=== PATIENT | male | born 1930 | race Caucasian/White ===

== ENCOUNTER 2016-12-18 11:29 | Inpatient (IN) | payer MEDICARE, MEDICAID ==
[~2016-12-18] VITALS: Ht 154.9 cm; Wt 77.1 kg
[2016-12-18] MEDS ORDERED: methylPREDNISolone SOD SUCC 125 MG/2ML VIAL ONE (11:34)
[2016-12-18] MEDS ORDERED: IPRATROPIUM NEB FS 0.5 MG/2.5 ML AMPUL.NEB ONE (11:35)
[2016-12-18] MEDS ORDERED: ALBUTEROL FS 2.5 MG/3 ML VIAL.NEB ONE (11:35)
[2016-12-18] MEDS ORDERED: CARV6.25 PO (11:41)
[2016-12-18] MEDS ORDERED: ACET-868 PO (11:41)
[2016-12-18] MEDS ORDERED: CALC-883 PO (11:41)
[2016-12-18] MEDS ORDERED: WARF3TAB29 PO (11:41)
[2016-12-18] MEDS ORDERED: TAMS-12 PO (11:41)
[2016-12-18] MEDS ORDERED: SIMV10TA2 PO (11:41)
[2016-12-18] MEDS ORDERED: CHOL100030 PO (11:41)
[2016-12-18] MEDS ORDERED: LEVO50TA PO (11:41)
[2016-12-18] MEDS ORDERED: BENA5TAB2 PO (11:41)
[2016-12-18] MEDS ORDERED: FAMO-131 PO (11:41)
[2016-12-18] MEDS ORDERED: ISOS30TA6 PO (11:41)
[2016-12-18] MEDS ORDERED: FINA5TAB3 PO (11:41)
[2016-12-18] MEDS ORDERED: DOCU-270 PO (11:41)
[2016-12-18] MEDS ORDERED: ASPI1CPM PO (11:41)
[2016-12-18] MEDS ORDERED: NIFE60TA2 PO (11:41)
[2016-12-18] MEDS ORDERED: MAGN400O6 PO (11:41)
[2016-12-18 11:57] LABS: BASOPHILS # (AUTO) 0.1 /CMM (0.0-0.2); BASOPHILS % (AUTO) 0.7 % (0.0-2.0); DIFF TOTAL % 100 %; EOSINOPHILS # (AUTO) 0.1 /CMM (0.0-0.7); EOSINOPHILS % (AUTO) 1.5 % (0.0-6.0); HEMATOCRIT 41 % (39-51); HEMOGLOBIN 12.9 g/dL (13.5-17.5); LYMPHOCYTES # (AUTO) 0.6 /CMM (0.8-4.8); LYMPHOCYTES % (AUTO) 7.5 % (20.0-44.0); MEAN CORPUSCULAR HEMOGLOBIN 27 PG (26.0-33.0); MEAN CORPUSCULAR HGB CONC 32 g/dl (31.0-36.0); MEAN CORPUSCULAR VOLUME 86 fL (80-96); MONOCYTES # (AUTO) 0.6 /CMM (0.1-1.30); MONOCYTES % (AUTO) 7.6 % (2.0-12.0); NEUTROPHILS # (AUTO) 6.5 /CMM (1.8-8.9); NEUTROPHILS % (AUTO) 82.7 % (43.0-81.0); PLATELET COUNT (AUTO) 189 /CMM (150-450); RED BLOOD CELL COUNT(AUTO) 4.75 MIL/uL (4.5-6.0); WHITE BLOOD COUNT (AUTO) 7.9 K/uL (4.3-11.0)
[2016-12-18] MEDS ORDERED: methylPREDNISolone SOD SUCC 125 MG/2ML VIAL IV ONE (12:00)
[2016-12-18] MEDS ORDERED: IPRATROPIUM NEB FS 0.5 MG/2.5 ML AMPUL.NEB NEB ONE (12:00)
[2016-12-18] MEDS ORDERED: ALBUTEROL FS 2.5 MG/3 ML VIAL.NEB CONTNEB ONE (12:00)
[2016-12-18 12:03] LABS: CALCIUM, SERUM 8.8 mg/dL (8.5-10.1); CREATININE 1.3 mg/dL (0.6-1.3); POTASSIUM 4.1 mmol/L (3.5-5.1)
[2016-12-18 12:11] LABS: TROPONIN I 0.036 ng/mL (0.00-0.056)
[2016-12-18 12:14] LABS: INR 2.19 (0.87-1.13); PROTHROMBIN TIME 23.8 SECS (9.5-12.7)
[2016-12-18 12:16] LABS: ALBUMIN 3.5 g/dL (3.4-5.0); BILIRUBIN,DIRECT 0.1 mg/dL (0.0-0.2); BILIRUBIN,TOTAL 0.5 mg/dL (0.2-1.0); INDIRECT BILIRUBIN 0.4 mg/dL (0.0-1.1); TOTAL PROTEIN, SERUM 7.4 g/dL (6.4-8.2)
[2016-12-18] MEDS ORDERED: IV NS 0.9% 1,000 ML BAG IV ONE (12:30)
[2016-12-18] MEDS ORDERED: IV NS 0.9% 1,000 ML ONE (12:33)
[2016-12-18 13:00] VITALS: BP 124/61
[2016-12-18] MEDS ORDERED: ONDANSETRON HCL/PF 4 MG/2 ML VIAL IV PRN (13:30)
[2016-12-18] MEDS ORDERED: DEXTROSE 50%-WATER 50 ML DISP.SYRIN IV PRN (13:30)
[2016-12-18] MEDS ORDERED: NIFEdipine XL 60 MG TAB PO SCH (14:00)
[2016-12-18] MEDS ORDERED: MAGNESIUM HYDROXIDE 30 ML UDC PO PRN (14:00)
[2016-12-18] MEDS ORDERED: ACETAMINOPHEN 325 MG TABLET PO PRN (14:00)
[2016-12-18] MEDS: FINASTERIDE (5 MG) 5 MG TABLET PO SCH (14:38)
[2016-12-18] MEDS: FAMOTIDINE (20 MG) 20 MG TABLET PO SCH (14:38)
[2016-12-18] MEDS: ISOSORBIDE MONONITRATE (30MG) 30 MG TAB.SR.24H PO SCH (14:38)
[2016-12-18] MEDS: CALCIUM CARB 600MG /VIT D 1 EACH TABLET PO SCH (14:38)
[2016-12-18] MEDS: CHOLECALCIFEROL 1,000 UNIT TABLET (VIT D3) PO SCH (14:38)
[2016-12-18] MEDS: BENAZEPRIL HCL 5 MG TABLET PO SCH (14:38)
[2016-12-18] MEDS: AGGRENOX(ASA/DIPYRIDAMOLE) 1 CAP CPMP.12HR PO SCH (14:45)
[2016-12-18] MEDS: IPRATROPIUM NEB FS 0.5 MG/2.5 ML AMPUL.NEB NEB SCH ×3 (15:42→23:48)
[2016-12-18] MEDS: ALBUTEROL FS 2.5 MG/0.5 ML VIAL.NEB NEB SCH ×3 (15:42→23:48)
[2016-12-18 16:33] VITALS: BP 127/81
[2016-12-18] MEDS: WARFARIN SODIUM 1 MG TABLET PO SCH (17:18)
[2016-12-18] MEDS: BLOOD SUGAR DIAGNOSTIC 1 EACH STRIP IN SCH ×2 (17:27→21:21)
[2016-12-18] MEDS: INSULIN REGULAR, HUMAN 100 UNIT/ML 3 ML VIAL SQ PRN ×2 (17:33→21:29)
[2016-12-18 20:00] VITALS: BP 142/75
[2016-12-18] MEDS: methylPREDNISolone SOD SUCC 40 MG/ML VIAL IV SCH (20:18)
[2016-12-18] MEDS: CARVEDILOL 6.25 MG TABLET PO SCH (20:19)
[2016-12-18] MEDS: DOCUSATE SODIUM 100 MG CAPSULE PO SCH (20:19)
[2016-12-18] MEDS ORDERED: HEPARIN SODIUM, PORCINE 5000 UNITS/1 ML VIAL SQ SCH (21:00)
[2016-12-18] MEDS: TAMSULOSIN 0.4 MG CAP.SR.24H PO SCH (21:21)
[2016-12-18] MEDS: SIMVASTATIN 10 MG TABLET PO SCH (21:21)
[2016-12-18 22:00] VITALS: BP 142/75
[2016-12-19] VITALS (15 sets, daily range): BP systolic 112–147; BP diastolic 60–89
[2016-12-19] MEDS ORDERED: FUROSEMIDE 40 MG/4 ML VIAL ONE (02:37)
[2016-12-19] MEDS ORDERED: FUROSEMIDE 40 MG/4 ML VIAL IV ONE (03:00)
[2016-12-19] MEDS: ALBUTEROL FS 2.5 MG/0.5 ML VIAL.NEB NEB SCH ×2 (03:42→07:47)
[2016-12-19] MEDS: IPRATROPIUM NEB FS 0.5 MG/2.5 ML AMPUL.NEB NEB SCH ×2 (03:42→07:47)
[2016-12-19] MEDS: methylPREDNISolone SOD SUCC 40 MG/ML VIAL IV SCH ×3 (05:21→21:09)
[2016-12-19] MEDS: BLOOD SUGAR DIAGNOSTIC 1 EACH STRIP IN SCH ×4 (06:41→21:08)
[2016-12-19] MEDS: INSULIN REGULAR, HUMAN 100 UNIT/ML 3 ML VIAL SQ PRN ×4 (06:42→21:17)
[2016-12-19 07:28] LABS: DIFF TOTAL % 100 %; HEMATOCRIT 38 % (39-51); HEMOGLOBIN 12.1 g/dL (13.5-17.5); LYMPHOCYTES # (AUTO) 0.4 /CMM (0.8-4.8); LYMPHOCYTES % (AUTO) 5.1 % (20.0-44.0); MEAN CORPUSCULAR HEMOGLOBIN 28 PG (26.0-33.0); MEAN CORPUSCULAR HGB CONC 32 g/dl (31.0-36.0); MEAN CORPUSCULAR VOLUME 86 fL (80-96); MONOCYTES # (AUTO) 0.4 /CMM (0.1-1.30); MONOCYTES % (AUTO) 4.6 % (2.0-12.0); NEUTROPHILS # (AUTO) 7.1 /CMM (1.8-8.9); NEUTROPHILS % (AUTO) 90.3 % (43.0-81.0); PLATELET COUNT (AUTO) 169 /CMM (150-450); RED BLOOD CELL COUNT(AUTO) 4.37 MIL/uL (4.5-6.0); WHITE BLOOD COUNT (AUTO) 7.9 K/uL (4.3-11.0)
[2016-12-19 07:37] LABS: ALBUMIN 3.3 g/dL (3.4-5.0); BILIRUBIN,TOTAL 0.4 mg/dL (0.2-1.0); CALCIUM, SERUM 8.8 mg/dL (8.5-10.1); CREATININE 1.6 mg/dL (0.6-1.3); PHOSPHORUS 3.1 mg/dL (2.5-4.9); POTASSIUM 4.1 mmol/L (3.5-5.1); TOTAL PROTEIN, SERUM 6.9 g/dL (6.4-8.2)
[2016-12-19] MEDS: PANTOPRAZOLE 40 MG TABLET.DR PO SCH (08:37)
[2016-12-19] MEDS: ISOSORBIDE MONONITRATE (30MG) 30 MG TAB.SR.24H PO SCH (08:37)
[2016-12-19] MEDS: FINASTERIDE (5 MG) 5 MG TABLET PO SCH (08:38)
[2016-12-19] MEDS: DOCUSATE SODIUM 100 MG CAPSULE PO SCH ×2 (08:38→21:09)
[2016-12-19] MEDS: CARVEDILOL 6.25 MG TABLET PO SCH ×2 (08:38→21:10)
[2016-12-19] MEDS: AGGRENOX(ASA/DIPYRIDAMOLE) 1 CAP CPMP.12HR PO SCH (08:38)
[2016-12-19] MEDS: LEVOTHYROXINE SODIUM 50 MCG TABLET PO SCH (08:38)
[2016-12-19] MEDS: FAMOTIDINE (20 MG) 20 MG TABLET PO SCH (08:38)
[2016-12-19] MEDS: CHOLECALCIFEROL 1,000 UNIT TABLET (VIT D3) PO SCH (08:38)
[2016-12-19] MEDS: CALCIUM CARB 600MG /VIT D 1 EACH TABLET PO SCH (08:38)
[2016-12-19] MEDS: BENAZEPRIL HCL 5 MG TABLET PO SCH (08:38)
[2016-12-19] MEDS: NIFEdipine XL (30MG) 30 MG TAB PO SCH (08:39)
[2016-12-19] MEDS ORDERED: LEVOFLOXACIN 250 MG /D5W 50 ML 250 MG in PREMIX 1 EA IV SCH (10:30)
[2016-12-19] MEDS: CEFTRIAXONE 1 G in IV D5W 50 ML IV SCH (11:47)
[2016-12-19] MEDS: AZITHROMYCIN 500 MG in IV D5W 250 ML IV SCH (11:47)
[2016-12-19] MEDS ORDERED: IV SET PRIMARY PUMP SET 1 EA INFUS.SET MC ONE (11:55)
[2016-12-19] MEDS ORDERED: IV NS 0.9% 250 ML IV ONE (11:55)
[2016-12-19] MEDS ORDERED: SECONDARY IV SET 1 EA INFUS.SET MC ONE (11:56)
[2016-12-19] MEDS: LEVALBUTEROL HCL NEB 1.25 MG/0.5 ML VIAL.NEB NEB SCH ×2 (14:45→23:46)
[2016-12-19] MEDS: IPRATROPIUM NEB FS 0.5 MG/2.5 ML AMPUL.NEB NEB PRN (14:45)
[2016-12-19 17:57] LABS: INR 2.75 (0.87-1.13)
[2016-12-19] MEDS: WARFARIN SODIUM 1 MG TABLET PO SCH (18:05)
[2016-12-19] MEDS: SIMVASTATIN 10 MG TABLET PO SCH (21:09)
[2016-12-19] MEDS: TAMSULOSIN 0.4 MG CAP.SR.24H PO SCH (21:09)
[2016-12-20] VITALS (7 sets, daily range): BP systolic 114–141; BP diastolic 7–88
[2016-12-20] MEDS: ALBUTEROL FS 2.5 MG/0.5 ML VIAL.NEB NEB PRN (02:55)
[2016-12-20] MEDS: IPRATROPIUM NEB FS 0.5 MG/2.5 ML AMPUL.NEB NEB PRN ×2 (02:55→23:52)
[2016-12-20] MEDS ORDERED: BUMETANIDE INJ 0.25 MG/ML VIAL ONE (04:32)
[2016-12-20] MEDS: methylPREDNISolone SOD SUCC 40 MG/ML VIAL IV SCH ×2 (04:51→13:58)
[2016-12-20] MEDS ORDERED: BUMETANIDE INJ 0.25 MG/ML VIAL IV ONE (05:00)
[2016-12-20] MEDS: BLOOD SUGAR DIAGNOSTIC 1 EACH STRIP IN SCH ×4 (07:08→21:45)
[2016-12-20] MEDS: INSULIN REGULAR, HUMAN 100 UNIT/ML 3 ML VIAL SQ PRN ×4 (07:09→21:41)
[2016-12-20] MEDS: LEVALBUTEROL HCL NEB 1.25 MG/0.5 ML VIAL.NEB NEB SCH ×3 (07:25→23:52)
[2016-12-20 07:46] LABS: CALCIUM, SERUM 8.8 mg/dL (8.5-10.1); CREATININE 1.7 mg/dL (0.6-1.3); PHOSPHORUS 3.8 mg/dL (2.5-4.9)
[2016-12-20 07:52] LABS: INR 3.07 (0.87-1.13); PROTHROMBIN TIME 33.5 SECS (9.5-12.7)
[2016-12-20 08:14] LABS: HEMATOCRIT 40 % (39-51); HEMOGLOBIN 12.4 g/dL (13.5-17.5); LYMPHOCYTES % (AUTO) 4.4 % (20.0-44.0); MEAN CORPUSCULAR HEMOGLOBIN 27 PG (26.0-33.0); MEAN CORPUSCULAR HGB CONC 32 g/dl (31.0-36.0); MEAN CORPUSCULAR VOLUME 86 fL (80-96); MONOCYTES % (AUTO) 3.1 % (2.0-12.0); NEUTROPHILS % (AUTO) 92.5 % (43.0-81.0); PLATELET COUNT (AUTO) 191 /CMM (150-450); RED BLOOD CELL COUNT(AUTO) 4.61 MIL/uL (4.5-6.0); WHITE BLOOD COUNT (AUTO) 12.3 K/uL (4.3-11.0)
[2016-12-20 08:15] LABS: DIFF TOTAL % 100 %; LYMPHOCYTES # (AUTO) 0.5 /CMM (0.8-4.8); MONOCYTES # (AUTO) 0.4 /CMM (0.1-1.30); NEUTROPHILS # (AUTO) 11.4 /CMM (1.8-8.9)
[2016-12-20] MEDS: FINASTERIDE (5 MG) 5 MG TABLET PO SCH (11:41)
[2016-12-20] MEDS: FAMOTIDINE (20 MG) 20 MG TABLET PO SCH (11:41)
[2016-12-20] MEDS: BENAZEPRIL HCL 5 MG TABLET PO SCH (11:41)
[2016-12-20] MEDS: ISOSORBIDE MONONITRATE (30MG) 30 MG TAB.SR.24H PO SCH (11:41)
[2016-12-20] MEDS: PANTOPRAZOLE 40 MG TABLET.DR PO SCH (11:41)
[2016-12-20] MEDS: AGGRENOX(ASA/DIPYRIDAMOLE) 1 CAP CPMP.12HR PO SCH (11:41)
[2016-12-20] MEDS: DOCUSATE SODIUM 100 MG CAPSULE PO SCH ×2 (11:41→21:00)
[2016-12-20] MEDS: CALCIUM CARB 600MG /VIT D 1 EACH TABLET PO SCH (11:41)
[2016-12-20] MEDS: CHOLECALCIFEROL 1,000 UNIT TABLET (VIT D3) PO SCH (11:41)
[2016-12-20] MEDS: LEVOTHYROXINE SODIUM 50 MCG TABLET PO SCH (11:42)
[2016-12-20] MEDS: CARVEDILOL 6.25 MG TABLET PO SCH ×2 (11:42→21:00)
[2016-12-20] MEDS: AZITHROMYCIN 500 MG in IV D5W 250 ML IV SCH (12:14)
[2016-12-20] MEDS: CEFTRIAXONE 1 G in IV D5W 50 ML IV SCH (13:58)
[2016-12-20] MEDS: NIFEdipine XL (30MG) 30 MG TAB PO SCH (15:20)
[2016-12-20] MEDS: QUETIAPINE FUMARATE 25 MG TABLET PO SCH ×2 (15:30→18:06)
[2016-12-20] MEDS: DILTIAZEM HCL 30 MG TABLET PO SCH (18:05)
[2016-12-20] MEDS: WARFARIN SODIUM 1 MG TABLET PO SCH (18:07)
[2016-12-20] MEDS: TAMSULOSIN 0.4 MG CAP.SR.24H PO SCH (22:00)
[2016-12-20] MEDS: SIMVASTATIN 10 MG TABLET PO SCH (22:00)
[2016-12-21] VITALS: BP 122/65
[2016-12-21 04:00] VITALS: BP 144/84
[2016-12-21] MEDS: ALBUTEROL FS 2.5 MG/0.5 ML VIAL.NEB NEB PRN (05:47)
[2016-12-21] MEDS: IPRATROPIUM NEB FS 0.5 MG/2.5 ML AMPUL.NEB NEB PRN ×3 (05:47→15:21)
[2016-12-21] MEDS: INSULIN REGULAR, HUMAN 100 UNIT/ML 3 ML VIAL SQ PRN ×2 (06:54→12:21)
[2016-12-21] MEDS: BLOOD SUGAR DIAGNOSTIC 1 EACH STRIP IN SCH ×2 (06:57→12:20)
[2016-12-21 07:00] VITALS: BP 133/84
[2016-12-21 07:28] LABS: BASOPHILS % (AUTO) 0.3 % (0.0-2.0); DIFF TOTAL % 100 %; EOSINOPHILS % (AUTO) 0.2 % (0.0-6.0); HEMATOCRIT 39 % (39-51); HEMOGLOBIN 12.4 g/dL (13.5-17.5); LYMPHOCYTES # (AUTO) 0.7 /CMM (0.8-4.8); LYMPHOCYTES % (AUTO) 7.4 % (20.0-44.0); MEAN CORPUSCULAR HEMOGLOBIN 28 PG (26.0-33.0); MEAN CORPUSCULAR HGB CONC 32 g/dl (31.0-36.0); MEAN CORPUSCULAR VOLUME 86 fL (80-96); MONOCYTES # (AUTO) 0.6 /CMM (0.1-1.30); MONOCYTES % (AUTO) 6.8 % (2.0-12.0); NEUTROPHILS % (AUTO) 85.3 % (43.0-81.0); PLATELET COUNT (AUTO) 180 /CMM (150-450); WHITE BLOOD COUNT (AUTO) 9.4 K/uL (4.3-11.0)
[2016-12-21 07:36] LABS: INR 3.95 (0.87-1.13); PROTHROMBIN TIME 43.3 SECS (9.5-12.7)
[2016-12-21 07:52] LABS: CALCIUM, SERUM 8.5 mg/dL (8.5-10.1); CREATININE 1.7 mg/dL (0.6-1.3); PHOSPHORUS 3.1 mg/dL (2.5-4.9)
[2016-12-21] MEDS: PANTOPRAZOLE 40 MG TABLET.DR PO SCH (08:26)
[2016-12-21] MEDS: CALCIUM CARB 600MG /VIT D 1 EACH TABLET PO SCH (08:26)
[2016-12-21] MEDS: DOCUSATE SODIUM 100 MG CAPSULE PO SCH (08:26)
[2016-12-21] MEDS: FINASTERIDE (5 MG) 5 MG TABLET PO SCH (08:26)
[2016-12-21] MEDS: AGGRENOX(ASA/DIPYRIDAMOLE) 1 CAP CPMP.12HR PO SCH (08:27)
[2016-12-21] MEDS: CARVEDILOL 6.25 MG TABLET PO SCH (08:27)
[2016-12-21] MEDS: DILTIAZEM HCL 30 MG TABLET PO SCH ×2 (08:27→13:00)
[2016-12-21] MEDS: CHOLECALCIFEROL 1,000 UNIT TABLET (VIT D3) PO SCH (08:27)
[2016-12-21] MEDS: FAMOTIDINE (20 MG) 20 MG TABLET PO SCH (08:27)
[2016-12-21] MEDS: ISOSORBIDE MONONITRATE (30MG) 30 MG TAB.SR.24H PO SCH (08:27)
[2016-12-21 08:28] VITALS: BP 133/84
[2016-12-21] MEDS: LEVOTHYROXINE SODIUM 50 MCG TABLET PO SCH (08:28)
[2016-12-21] MEDS: NIFEdipine XL (30MG) 30 MG TAB PO SCH (08:28)
[2016-12-21] MEDS ORDERED: methylPREDNISolone SOD SUCC 40 MG/ML VIAL IV SCH (09:00)
[2016-12-21] MEDS: QUETIAPINE FUMARATE 25 MG TABLET PO SCH (09:00)
[2016-12-21] MEDS: LEVALBUTEROL HCL NEB 1.25 MG/0.5 ML VIAL.NEB NEB SCH ×2 (09:02→15:21)
[2016-12-21] MEDS: AZITHROMYCIN 500 MG in IV D5W 250 ML IV SCH (10:12)
[2016-12-21] MEDS ORDERED: IV NS 0.9% 250 ML IV ONE (12:16)
[2016-12-21] MEDS: CEFTRIAXONE 1 G in IV D5W 50 ML IV SCH (12:20)
== END 2016-12-21 16:00 | DRG 189 ==
LOC: ER 11:32 → TELE 12:46
PROVIDERS: ADMIT Internal Medicine Nephrology; ATTEND Internal Medicine Nephrology
DX: J96.00 Acute respiratory failure, unspecified whether with hypoxia or hypercapnia (principal); N17.0 Acute kidney failure with tubular necrosis; J44.0 Chronic obstructive pulmonary disease with (acute) lower respiratory infection; N18.4 Chronic kidney disease, stage 4 (severe); J44.1 Chronic obstructive pulmonary disease with (acute) exacerbation; J20.9 Acute bronchitis, unspecified; E78.5 Hyperlipidemia, unspecified; I48.91 Unspecified atrial fibrillation; K21.9 Gastro-esophageal reflux disease without esophagitis; Z86.73 Personal history of transient ischemic attack (TIA), and cerebral infarction without residual deficits; F03.90 Unspecified dementia, unspecified severity, without behavioral disturbance, psychotic disturbance, mood disturbance, and anxiety; Z95.1 Presence of aortocoronary bypass graft; N40.0 Benign prostatic hyperplasia without lower urinary tract symptoms; E11.22 Type 2 diabetes mellitus with diabetic chronic kidney disease; I12.9 Hypertensive chronic kidney disease with stage 1 through stage 4 chronic kidney disease, or unspecified chronic kidney disease; E83.51 Hypocalcemia; F32.9 Major depressive disorder, single episode, unspecified; F41.1 Generalized anxiety disorder; Z87.891 Personal history of nicotine dependence
CPT/HCPCS: 36415; 70220-TC; 71010-TC; 76770-TC; 80048-TC; 80053-TC; 80076-TC; 82962-TC; 83735-TC; 83880; 84100-TC; 84484-TC; 85025-TC; 85610-TC; 85730-TC; 87081-TC; 87400; 94799-TC; A4216; A4606; J0456; J0696; J1815; J1940; J1956; J2920; J2930; J3490; J7030; J7050; J7060; Z7610

== ENCOUNTER 2017-03-13 12:13 | Inpatient (IN) | payer MEDICARE, MEDICAID ==
[~2017-03-13] VITALS: Ht 157.5 cm; Wt 70.8 kg
[~2017-03-13 12:13] MED LIST: ACET-868 PO; ASPI1CPM PO; BENA5TAB2 PO; CALC-883 PO; CARV6.25 PO; CHOL100030 PO; DOCU-270 PO; FAMO-131 PO; FINA5TAB3 PO; ISOS30TA6 PO; LEVO50TA PO; MAGN400O6 PO; NIFE60TA2 PO; SIMV10TA2 PO; TAMS-12 PO; WARF3TAB29 PO
--- NOTE | 2017-03-13 12:23 | NUR ---
PT BB PRIVATE EMS FROM [facility] FOR BLOODY STOOL THIS AM. PLACED ON MONITOR. VSS. AWAITING MD ORDER.
--- NOTE | 2017-03-13 12:27 | NUR ---
DR IRIZARRY CALLED AND SPOKE WITH DR NEWSOME
[2017-03-13] MEDS ORDERED: PANTOPRAZOLE 40 MG VIAL IV ONE (12:30)
[2017-03-13] MEDS ORDERED: IV NS 0.9% 1,000 ML BAG IV ONE (12:30)
[2017-03-13] MEDS ORDERED: PANTOPRAZOLE 40 MG VIAL ONE (12:34)
[2017-03-13] MEDS ORDERED: IV SET PRIMARY PUMP SET 1 EA INFUS.SET MC ONE ×2 (12:35→14:42)
[2017-03-13] MEDS ORDERED: IV NS 0.9% 1,000 ML ONE (12:35)
[2017-03-13 12:38] LABS: BASOPHILS % (AUTO) 0.4 % (0.0-2.0); EOSINOPHILS # (AUTO) 0.2 /CMM (0.0-0.7); EOSINOPHILS % (AUTO) 2.2 % (0.0-6.0); HEMATOCRIT 30 % (39-51); HEMOGLOBIN 9.2 g/dL (13.5-17.5); LYMPHOCYTES % (AUTO) 14.2 % (20.0-44.0); MEAN CORPUSCULAR HEMOGLOBIN 26 PG (26.0-33.0); MEAN CORPUSCULAR HGB CONC 31 g/dl (31.0-36.0); MEAN CORPUSCULAR VOLUME 84 fL (80-96); MONOCYTES # (AUTO) 0.6 /CMM (0.1-1.30); NEUTROPHILS # (AUTO) 5.2 /CMM (1.8-8.9); NEUTROPHILS % (AUTO) 75.2 % (43.0-81.0); PLATELET COUNT (AUTO) 202 /CMM (150-450); RDW COEFFICIENT OF VARIATION 14.8 (11.5-15.0); RED BLOOD CELL COUNT(AUTO) 3.54 MIL/uL (4.5-6.0)
--- NOTE | 2017-03-13 12:40 | NUR ---
AT BEDSIDE FOR EVAL
[2017-03-13 12:48] LABS: CALCIUM, SERUM 8.5 mg/dL (8.5-10.1); CREATININE 1.3 mg/dL (0.6-1.3); POTASSIUM 3.6 mmol/L (3.5-5.1)
[2017-03-13 12:52] LABS: INR 2.33 (0.87-1.13); PROTHROMBIN TIME 25.4 SECS (9.5-12.7)
[2017-03-13 12:54] LABS: BILIRUBIN,DIRECT 0.2 mg/dL (0.0-0.2); BILIRUBIN,TOTAL 0.6 mg/dL (0.2-1.0); TOTAL PROTEIN, SERUM 6.2 g/dL (6.4-8.2)
--- NOTE | 2017-03-13 13:03 | NUR ---
XRAY AT BEDSIDE FOR EVAL
[2017-03-13] MEDS ORDERED: PROTHROMBIN COMPLEX CONCENTR 500 UNIT VIAL IV ONE (13:30)
--- NOTE | 2017-03-13 13:32 | NUR ---
PT TAKEN TO CT SCAN VIA ARTHUR
[2017-03-13] MEDS ORDERED: PHYTONADIONE INJ 10 MG in IV NS 0.9% 50 ML IV ONE (14:00)
[2017-03-13] MEDS ORDERED: LEVA1.25 NEB (14:06)
[2017-03-13] MEDS ORDERED: CRAN3875 PO (14:06)
[2017-03-13] MEDS ORDERED: ALBU2.5V38 NEB (14:06)
[2017-03-13] MEDS ORDERED: DILT30TA2 PO (14:06)
[2017-03-13] MEDS ORDERED: CRAN425C PO (14:06)
[2017-03-13] MEDS ORDERED: AMIN30LI2 PO (14:06)
[2017-03-13] MEDS ORDERED: WARF2.5T47 PO (14:06)
[2017-03-13] MEDS ORDERED: IPRA0.2S49 NEB (14:06)
--- NOTE | 2017-03-13 14:43 | NUR ---
PANEL ON-CALL PAGED
[2017-03-13] MEDS: WATER FOR INJECTION STERILE IV ONE ×2 (14:59→15:04)
[2017-03-13] MEDS: PROTHROMBIN COMPLEX CONCENTR IV ONE ×2 (14:59→15:04)
[2017-03-13] MEDS ORDERED: PROTHROMBIN COMPLEX CONCENTRATE IV ONE ×2 (15:00)
[2017-03-13] MEDS ORDERED: [UNRECOGNIZED DRUG - OTHER] IV ONE ×2 (15:00)
--- NOTE | 2017-03-13 15:05 | NUR ---
DUPLICATE ORDER OF PROTHROMBIN COMPLEX MEDS. NON ADMIN ONE OF ORDER
[2017-03-13 15:43] LABS: BASOPHILS % (AUTO) 0.4 % (0.0-2.0); EOSINOPHILS # (AUTO) 0.2 /CMM (0.0-0.7); EOSINOPHILS % (AUTO) 3.1 % (0.0-6.0); HEMATOCRIT 28 % (39-51); HEMOGLOBIN 8.7 g/dL (13.5-17.5); LYMPHOCYTES % (AUTO) 16.3 % (20.0-44.0); MEAN CORPUSCULAR HEMOGLOBIN 26 PG (26.0-33.0); MEAN CORPUSCULAR HGB CONC 31 g/dl (31.0-36.0); MEAN CORPUSCULAR VOLUME 83 fL (80-96); MONOCYTES # (AUTO) 0.6 /CMM (0.1-1.30); MONOCYTES % (AUTO) 9.5 % (2.0-12.0); NEUTROPHILS # (AUTO) 4.4 /CMM (1.8-8.9); NEUTROPHILS % (AUTO) 70.7 % (43.0-81.0); PLATELET COUNT (AUTO) 169 /CMM (150-450); RED BLOOD CELL COUNT(AUTO) 3.33 MIL/uL (4.5-6.0); WHITE BLOOD COUNT (AUTO) 6.2 K/uL (4.3-11.0)
--- NOTE | 2017-03-13 16:18 | NUR ---
GAVE REPORT TO MAHAMED EDWARDO LAMBERT . ROOM 103 NPO AND HOLD BLOOD THINNERS PER DR HERRERA. TRANSFER VIA GURNEY VIA ACLS PROTOCOL.
[2017-03-13 16:55] VITALS: BP 139/64
--- NOTE | 2017-03-13 16:55 | NUR ---
RN INITIAL NOTES RECEIVED PT AWAKE, A/OX1-2. SIERRA LEONEAN SPEAKING. ON 02 AT 2LPM VIA NC. NO RESPIRATORY DISTRESS NOTED. NO SOB NOTED. NO SIGNS OF PAIN NOTED. RAC #18 [address] FLUSHED WITH NS. BODY ASSESSMENT DONE. PIC TAKEN AND PLACED INSIDE THE CHART. PT COMFORTABLE. ORIENTED TO ROOM AND USE OF CALL LIGHT. AWAITING FOR ADMISSION ORDERS. CALL LIGHT WITHIN REACH. WILL MONITOR
[2017-03-13 17:00] VITALS: BP 139/64
[2017-03-13 20:00] VITALS: BP 132/75
--- NOTE | 2017-03-13 20:00 | NUR ---
received pt from day shift, alert, follows commands, confused at times, Afib controlled, on 2 L 02, sat well, lungs partially congested, no edema, black bloody stools, seen by GI MD, BRP, diabetic diet, v/s stable, no pain, pt turns and repositions by himself.
[2017-03-13] MEDS ORDERED: MAGNESIUM HYDROXIDE 30 ML UDC PO PRN (20:30)
[2017-03-13] MEDS ORDERED: IPRATROPIUM NEB FS 0.5 MG/2.5 ML AMPUL.NEB NEB PRN (20:30)
[2017-03-13] MEDS ORDERED: AGGRENOX(ASA/DIPYRIDAMOLE) 1 CAP CPMP.12HR PO SCH (20:30)
[2017-03-13] MEDS ORDERED: ACETAMINOPHEN 325 MG TABLET PO PRN (20:30)
[2017-03-13] MEDS ORDERED: ALBUTEROL FS 2.5 MG/3 ML VIAL.NEB NEB PRN (20:30)
[2017-03-13] MEDS ORDERED: HOME MED MISCELLANEOUS XX SCH ×2 (20:30)
[2017-03-13] MEDS ORDERED: HALOPERIDOL LACTATE INJ 5 MG/ML VIAL IM PRN (21:00)
[2017-03-13] MEDS ORDERED: DEXTROSE 50%-WATER 50 ML DISP.SYRIN IV PRN (21:00)
[2017-03-13] MEDS: DOCUSATE SODIUM 100 MG CAPSULE PO SCH (21:00)
--- NOTE | 2017-03-13 21:00 | NUR ---
Dr. Magana called, orders for medications reconciliation received and carried out. patient's non complaints reported to Dr Farias.
[2017-03-13] MEDS: FINASTERIDE (5 MG) 5 MG TABLET PO SCH (21:19)
[2017-03-13] MEDS: PANTOPRAZOLE 40 MG VIAL IV SCH (21:19)
[2017-03-13] MEDS: SIMVASTATIN 10 MG TABLET PO SCH (21:19)
[2017-03-13] MEDS: TAMSULOSIN 0.4 MG CAP.SR.24H PO SCH (21:19)
[2017-03-13] MEDS: ISOSORBIDE MONONITRATE (30MG) 30 MG TAB.SR.24H PO SCH (21:20)
[2017-03-13] MEDS: CARVEDILOL 6.25 MG TABLET PO SCH (21:20)
[2017-03-13] MEDS: DILTIAZEM HCL 30 MG TABLET PO SCH (21:21)
[2017-03-13] MEDS: BLOOD SUGAR DIAGNOSTIC 1 EACH STRIP IN SCH (21:32)
[2017-03-13] MEDS: ALBUTEROL FS 2.5 MG/0.5 ML VIAL.NEB NEB SCH (23:42)
[2017-03-14] VITALS: BP 100/51
--- NOTE | 2017-03-14 00:36 | NUR ---
pt is resting in the bed, alert, very non compliant, removing oxygen and telemetry, v/s stable, no pain, no rectal bleed noted.
--- NOTE | 2017-03-14 04:36 | NUR ---
pt is resting in the bed, alert, following commands, very non compliant, refusing telemonitoring and supplemental oxygen pt refused 04:00 vitals.
--- NOTE | 2017-03-14 06:10 | NUR ---
CYNTHIA Zamora called regarding patient's behavior She is coming to the hospital.
[2017-03-14] MEDS: ALBUTEROL FS 2.5 MG/0.5 ML VIAL.NEB NEB SCH ×3 (07:35→23:53)
[2017-03-14 08:00] VITALS: BP 122/74
[2017-03-14] MEDS: FINASTERIDE (5 MG) 5 MG TABLET PO SCH (08:24)
[2017-03-14] MEDS: PANTOPRAZOLE 40 MG VIAL IV SCH ×2 (08:24→21:19)
[2017-03-14] MEDS: ISOSORBIDE MONONITRATE (30MG) 30 MG TAB.SR.24H PO SCH (08:24)
[2017-03-14] MEDS: CHOLECALCIFEROL 1,000 UNIT TABLET (VIT D3) PO SCH (08:24)
[2017-03-14] MEDS: PROSOURCE / PROSTAT (PYXIS) 30 ML UDC PO SCH (08:24)
[2017-03-14 08:25] LABS: BASOPHILS % (AUTO) 0.7 % (0.0-2.0); EOSINOPHILS # (AUTO) 0.2 /CMM (0.0-0.7); EOSINOPHILS % (AUTO) 4.4 % (0.0-6.0); HEMATOCRIT 26 % (39-51); HEMOGLOBIN 8.4 g/dL (13.5-17.5); LYMPHOCYTES # (AUTO) 0.9 /CMM (0.8-4.8); LYMPHOCYTES % (AUTO) 15.9 % (20.0-44.0); MEAN CORPUSCULAR HEMOGLOBIN 26 PG (26.0-33.0); MEAN CORPUSCULAR HGB CONC 32 g/dl (31.0-36.0); MEAN CORPUSCULAR VOLUME 82 fL (80-96); MONOCYTES # (AUTO) 0.5 /CMM (0.1-1.30); MONOCYTES % (AUTO) 9.3 % (2.0-12.0); NEUTROPHILS # (AUTO) 3.9 /CMM (1.8-8.9); NEUTROPHILS % (AUTO) 69.7 % (43.0-81.0); PLATELET COUNT (AUTO) 177 /CMM (150-450); RDW COEFFICIENT OF VARIATION 16.1 (11.5-15.0); RED BLOOD CELL COUNT(AUTO) 3.22 MIL/uL (4.5-6.0); WHITE BLOOD COUNT (AUTO) 5.5 K/uL (4.3-11.0)
[2017-03-14] MEDS: CARVEDILOL 6.25 MG TABLET PO SCH ×2 (08:25→21:20)
[2017-03-14] MEDS: CALCIUM CARB 600MG /VIT D 1 EACH TABLET PO SCH (08:25)
[2017-03-14] MEDS: DOCUSATE SODIUM 100 MG CAPSULE PO SCH ×2 (08:25→21:19)
[2017-03-14] MEDS: LEVOTHYROXINE SODIUM 50 MCG TABLET PO SCH (08:25)
[2017-03-14] MEDS: DILTIAZEM HCL 30 MG TABLET PO SCH ×3 (08:25→18:07)
[2017-03-14] MEDS: NIFEdipine XL 60 MG TAB PO SCH (08:25)
--- NOTE | 2017-03-14 08:30 | NUR ---
MAHAMED RN NOTE POA at bedside, aware for patient noncompliance. Patient compliant of care at this time with POA at bedside, educational coordinator able to draw blood for blood works today and able to get VS, placed O2 2LPM via NC for 89-90 on room air, patient agreed.
[2017-03-14 08:41] LABS: ALBUMIN 2.9 g/dL (3.4-5.0); BILIRUBIN,TOTAL 0.6 mg/dL (0.2-1.0); CALCIUM, SERUM 7.9 mg/dL (8.5-10.1); CREATININE 1.2 mg/dL (0.6-1.3); INR 1.05 (0.87-1.13); POTASSIUM 3.4 mmol/L (3.5-5.1); PROTHROMBIN TIME 11.3 SECS (9.5-12.7); TOTAL PROTEIN, SERUM 5.8 g/dL (6.4-8.2)
[2017-03-14] MEDS: BLOOD SUGAR DIAGNOSTIC 1 EACH STRIP IN SCH ×4 (09:05→21:31)
[2017-03-14] MEDS: INSULIN REGULAR, HUMAN 100 UNIT/ML 3 ML VIAL SQ PRN ×4 (09:05→21:31)
--- NOTE | 2017-03-14 09:30 | NUR ---
MAHAMED RN NOTE S/E by Dr. Galvan, patient has no c/o abdominal discomfort, no active bleeding at this time an patient tolerated diet well. No Colonoscopy needed at this time, per MD. Patient verbalized understanding. MD aware for patient's non compliance at times.
[2017-03-14] MEDS ORDERED: POTASSIUM CHLORIDE 20 MEQ TAB.PRT.SR PO ONE (12:30)
--- NOTE | 2017-03-14 14:50 | NUR ---
MS RN NOTE Transferred patient to [facility] for CELIA. Report given. Patient resting well at this time, made RN aware with episode of BM x1 about 1100 with blood still. Will continue to monitor.
--- NOTE | 2017-03-14 15:05 | NUR ---
RN INITIAL NOTE PT AWAKE, ALERT AND ORIENTED. ABLE TO MAKE NEEDS KNOWN. NO S/S OF RESPIRATORY DISTRESS OR SOB, SATING WELL ON 2L N/C. SKIN WARM AND DRY. LEFT AC IV FLUSHED, AND PATENT. DRESSING C/D/I. SAFETY MEASURES IMPLEMENTED CALL LIGHT WITHIN REACH. WILL CONTINUE TO MONITOR.
[2017-03-14 16:00] VITALS: BP 110/53
--- NOTE | 2017-03-14 19:20 | NUR ---
RN NOTES RECEIVE DPT AWAKE ON BED WITH DAUGHTER AT BEDSIDE. AFEBRILE. NO ACUTE RESP DISTRESS WITH O2 2LPM VIA NC. SATING 95% NO COMPLAIN OF PAIN. AFEBRILE. PLAN OF CARE STATED TO THE PATIENT AND FAMILY TRANSLATED. PT IS AOX3 CAMEROONIAN SPEAKING. NO ACTIVE BLEEDING NOTED AT THIS TIME. IV SITE LAC G 22 INTACT AND PATENT. PT IS COMPLIANT AT THIS TIME. BUT AT FIRST WHEN THE FAMILY IS NOT THERE PT REFUSED VS . KEPT PT CLEAN AND COMFORTABLE IN BED. BED LOCKED AND SECURED. WILL CONTINUE TO MONITOR.
[2017-03-14 20:00] VITALS: BP 117/52
[2017-03-14 20:16] LABS: THYROID STIMULATING HORMONE 2.33 uIU/mL (0.358-3.74); URIC ACID 6.3 mg/dL (2.6-7.2)
[2017-03-14] MEDS: SIMVASTATIN 10 MG TABLET PO SCH (21:19)
[2017-03-14] MEDS: TAMSULOSIN 0.4 MG CAP.SR.24H PO SCH (21:19)
[2017-03-15 04:00] VITALS: BP 111/41
[2017-03-15 06:48] LABS: BASOPHILS % (AUTO) 0.4 % (0.0-2.0); EOSINOPHILS # (AUTO) 0.4 /CMM (0.0-0.7); EOSINOPHILS % (AUTO) 5.4 % (0.0-6.0); HEMATOCRIT 27 % (39-51); HEMOGLOBIN 8.4 g/dL (13.5-17.5); LYMPHOCYTES % (AUTO) 12.6 % (20.0-44.0); MEAN CORPUSCULAR HEMOGLOBIN 26 PG (26.0-33.0); MEAN CORPUSCULAR HGB CONC 31 g/dl (31.0-36.0); MEAN CORPUSCULAR VOLUME 83 fL (80-96); MONOCYTES # (AUTO) 0.8 /CMM (0.1-1.30); MONOCYTES % (AUTO) 10.1 % (2.0-12.0); NEUTROPHILS # (AUTO) 5.8 /CMM (1.8-8.9); NEUTROPHILS % (AUTO) 71.5 % (43.0-81.0); PLATELET COUNT (AUTO) 172 /CMM (150-450); RDW COEFFICIENT OF VARIATION 15.9 (11.5-15.0); RED BLOOD CELL COUNT(AUTO) 3.21 MIL/uL (4.5-6.0); WHITE BLOOD COUNT (AUTO) 8.1 K/uL (4.3-11.0)
[2017-03-15 07:06] LABS: CALCIUM, SERUM 8.6 mg/dL (8.5-10.1); CREATININE 1.5 mg/dL (0.6-1.3); POTASSIUM 3.8 mmol/L (3.5-5.1)
--- NOTE | 2017-03-15 07:15 | NUR ---
RN INITIAL NOTE PT RECEIVED IN BED, SLEEPING. EASILY AROUSED. RESPIRATIONS ARE EVEN AND UNLABORED. SATING WELL ON 2L N/C. NO S/S OF RESPIRATORY DISTRESS OR SOB. IV SITE FLUSHED AND PATENT. DRESSING C/D/I. SKIN WARM AND DRY TO TOUCH. SAFETY MEASURES IMPLEMENTED. BED IN LOCKED LOW POSITION. CALL LIGHT AND BELONGINGS WITHIN EASY REACH. WILL CONTINUE TO MONITOR.
[2017-03-15] MEDS: BLOOD SUGAR DIAGNOSTIC 1 EACH STRIP IN SCH ×4 (07:34→21:02)
--- NOTE | 2017-03-15 07:35 | NUR ---
RN NOTES PT BS IS 161 MG/DL INSULIN NOT ADMINISTERED DUE TO PATIENT HAS AN EPISODE OF NOT EATING IN AM SHIFT UNLESS THE FAMILY COMES AND GIVE PT FOOD. PT REMAINED IN STABLE CONDITION REMAINED COMPLIANT WITH CARE. NEEDS FREQ. REMINDER REGARDING O2 . O2 2LPM VIA NC TOLERATED WELL SATING 93-95%. KEPT PT CLEAN AND COMFORTABLE IN BED. STILL NOTED WITH BLACK STOOL DURING BOWEL. DENIES PAIN. ENDORSED CONTINUITY OF CARE TO AM NURSE.
[2017-03-15] MEDS: ALBUTEROL FS 2.5 MG/0.5 ML VIAL.NEB NEB SCH ×3 (07:43→23:44)
[2017-03-15 08:00] VITALS: BP 119/69
[2017-03-15] MEDS: LEVOTHYROXINE SODIUM 50 MCG TABLET PO SCH (08:23)
[2017-03-15] MEDS: CALCIUM CARB 600MG /VIT D 1 EACH TABLET PO SCH (08:23)
[2017-03-15] MEDS: FINASTERIDE (5 MG) 5 MG TABLET PO SCH (08:23)
[2017-03-15] MEDS: PROSOURCE / PROSTAT (PYXIS) 30 ML UDC PO SCH (08:23)
[2017-03-15] MEDS: DOCUSATE SODIUM 100 MG CAPSULE PO SCH ×2 (08:24→20:51)
[2017-03-15] MEDS: NIFEdipine XL 60 MG TAB PO SCH (08:24)
[2017-03-15] MEDS: ISOSORBIDE MONONITRATE (30MG) 30 MG TAB.SR.24H PO SCH (08:24)
[2017-03-15] MEDS: CHOLECALCIFEROL 1,000 UNIT TABLET (VIT D3) PO SCH (08:25)
[2017-03-15] MEDS: DILTIAZEM HCL 30 MG TABLET PO SCH ×3 (08:25→17:00)
[2017-03-15] MEDS: PANTOPRAZOLE 40 MG VIAL IV SCH ×2 (08:25→20:51)
[2017-03-15] MEDS: CARVEDILOL 6.25 MG TABLET PO SCH ×2 (08:25→20:52)
[2017-03-15] MEDS: INSULIN REGULAR, HUMAN 100 UNIT/ML 3 ML VIAL SQ PRN (08:37)
[2017-03-15 11:56] LABS: INR 0.95 (0.87-1.13); PROTHROMBIN TIME 10.1 SECS (9.5-12.7)
[2017-03-15 16:00] VITALS: BP 107/48
[2017-03-15] MEDS: WARFARIN SODIUM 2 MG TABLET PO SCH (17:00)
--- NOTE | 2017-03-15 19:08 | NUR ---
RN CLOSING NOTE PT RESTING IN BED COMFORTABLY. ALL MD ORDERS CARRIED OUT. PT KEPT CLEAN AND DRY. WILL GIVE REPORT TO PM NURSE FOR CELIA.
--- NOTE | 2017-03-15 19:30 | NUR ---
RN NOTES RECEIVED PT AWAKE ON BED SLEEPING PER PREVIOUS NURSE PT IS NO COMPLIANT WITH MEDICINE AND TO STAFF. AFEBRILE. NO ACUTE RESP DISTRESS WITH O2 2LPM VIA NC BUT EPISODE OF REMOVING IT NEEDS FURTHER INSTRUCTION SATING 93% NO COMPLAIN OF PAIN. AFEBRILE. PLAN OF CARE STATED TO THE PATIENT AND FAMILY TRANSLATED. PT IS AOX3 SAMOAN SPEAKING. NO ACTIVE BLEEDING NOTED AT THIS TIME. IV SITE LAC G 22 INTACT AND PATENT. DAUGHTER CAME AND VISITED CONCERN REGARDING THE PLAN OF CARE. INFORMED ABOUT THE PATIENT STATUS OF BEING NON COMPLIANT. PER DAUGHTER/RP SHE WANTS TO TALK TO THE DOCTOR IN THE MORNING AND ASKED FOR THE PLAN AND PROBABLY SHE WILL JUST GONNA TAKE HER HOME.KEPT PT CLEAN AND COMFORTABLE IN BED. BED LOCKED AND SECURED. WILL CONTINUE TO MONITOR.
[2017-03-15 20:00] VITALS: BP 125/60
[2017-03-15] MEDS: SIMVASTATIN 10 MG TABLET PO SCH (20:51)
[2017-03-15] MEDS: TAMSULOSIN 0.4 MG CAP.SR.24H PO SCH (21:04)
[2017-03-16 04:00] VITALS: BP 139/61
[2017-03-16] MEDS: BLOOD SUGAR DIAGNOSTIC 1 EACH STRIP IN SCH ×4 (06:42→21:45)
[2017-03-16 06:58] LABS: BASOPHILS % (AUTO) 0.5 % (0.0-2.0); EOSINOPHILS # (AUTO) 0.4 /CMM (0.0-0.7); EOSINOPHILS % (AUTO) 5.1 % (0.0-6.0); HEMATOCRIT 28 % (39-51); HEMOGLOBIN 8.6 g/dL (13.5-17.5); LYMPHOCYTES % (AUTO) 12.8 % (20.0-44.0); MEAN CORPUSCULAR HEMOGLOBIN 26 PG (26.0-33.0); MEAN CORPUSCULAR HGB CONC 31 g/dl (31.0-36.0); MEAN CORPUSCULAR VOLUME 83 fL (80-96); MONOCYTES # (AUTO) 0.8 /CMM (0.1-1.30); MONOCYTES % (AUTO) 10.2 % (2.0-12.0); NEUTROPHILS # (AUTO) 5.5 /CMM (1.8-8.9); NEUTROPHILS % (AUTO) 71.4 % (43.0-81.0); PLATELET COUNT (AUTO) 166 /CMM (150-450); RED BLOOD CELL COUNT(AUTO) 3.32 MIL/uL (4.5-6.0); WHITE BLOOD COUNT (AUTO) 7.8 K/uL (4.3-11.0)
--- NOTE | 2017-03-16 07:10 | NUR ---
RN NOTES PT ASLEEP WELL AT NIGHT WOKE UP AND AMBULATE TO THE BATHROOM STILL WITH BLACK TARRY STOOL. AFEBRILE. NO SIGNIFICANT CHANGES SHOWS. O2 2LPM VIA NC KEPT DUE TO EPISODE OF SOB WHILE WALKING. DENIES PAIN. AFEBRILE. VS STABLE. ENDORSED CONTINUITY OF CARE TO AM NURSE.
[2017-03-16 07:12] LABS: CALCIUM, SERUM 8.6 mg/dL (8.5-10.1); CREATININE 1.2 mg/dL (0.6-1.3); MAGNESIUM 1.9 mg/dL (1.8-2.4); PHOSPHORUS 2.8 mg/dL (2.5-4.9)
--- NOTE | 2017-03-16 07:30 | NUR ---
INITIAL NOTE PATIENT SITTING IN CHAIR, BREATHING EVEN AND UNLABORED WITH NC 2L. RESPONDS TO QUESTIONS. ORIENTED TO PERSON ONLY. NO IV ACCESS, PATIENT REFUSING. PATIENT AMBULATING WITH STEADY GAIT. POSITIONED PATIENT IN BED, BED ALARM ON.
[2017-03-16 08:00] VITALS: BP_SYST 128; BP_DIAS 59; BP_DIAS 65
[2017-03-16] MEDS: ALBUTEROL FS 2.5 MG/0.5 ML VIAL.NEB NEB SCH ×3 (08:11→23:29)
[2017-03-16] MEDS: DOCUSATE SODIUM 100 MG CAPSULE PO SCH ×2 (08:43→21:00)
[2017-03-16] MEDS: FINASTERIDE (5 MG) 5 MG TABLET PO SCH (08:43)
[2017-03-16] MEDS: CALCIUM CARB 600MG /VIT D 1 EACH TABLET PO SCH (08:43)
[2017-03-16] MEDS: CARVEDILOL 6.25 MG TABLET PO SCH ×2 (08:44→21:45)
[2017-03-16] MEDS: ISOSORBIDE MONONITRATE (30MG) 30 MG TAB.SR.24H PO SCH (08:44)
[2017-03-16] MEDS: DILTIAZEM HCL 30 MG TABLET PO SCH ×3 (08:44→17:00)
[2017-03-16] MEDS: LEVOTHYROXINE SODIUM 50 MCG TABLET PO SCH (08:44)
[2017-03-16] MEDS: CHOLECALCIFEROL 1,000 UNIT TABLET (VIT D3) PO SCH (08:44)
[2017-03-16] MEDS: PROSOURCE / PROSTAT (PYXIS) 30 ML UDC PO SCH (08:45)
[2017-03-16] MEDS: PANTOPRAZOLE 40 MG VIAL IV SCH ×2 (08:45→21:00)
[2017-03-16] MEDS: NIFEdipine XL 60 MG TAB PO SCH (08:45)
--- NOTE | 2017-03-16 09:30 | NUR ---
1 SMALL BM WITH BRIGHT BLOOD NOTED IN TOILET APPROXIMATELY 10ML. DAUGHTER AT BEDSIDE.
[2017-03-16 12:16] LABS: CARCINOEMBRYONIC AG (CEA) 3.9 ng/mL (0.0-4.7); VIT D, 25-HYDROXY 32.3 ng/mL (30.0-100.0)
--- NOTE | 2017-03-16 12:50 | NUR ---
INFORMED DR. FOLEY OF BRBPR. PAGED DR. FOURNIER BECAUSE DAUGHTER WANTS TO TALK TO HIM REGARDING PLAN OF CARE. PATIENT REFUSING ACCU-CHECK, REFUSING VITAL SIGNS AND REFUSING PO MEDICATION AT THIS TIME.
--- NOTE | 2017-03-16 16:30 | NUR ---
DR. MC AT NURSES STATION MADE AWARE OF BRBPR AND PATIENT REFUSING CARE. INFORMED THAT PATIENT'S DAUGHTER WANTS TO SPEAK TO HIM
[2017-03-16] MEDS: WARFARIN SODIUM 2 MG TABLET PO SCH (17:00)
--- NOTE | 2017-03-16 19:40 | NUR ---
RN NOTES PT IS AWAKE SITTING ON CHAIR. AFEBRILE. NO ACUTE RESP DISTRESS . O2 2LPM VIA NC TOLERATED WELL WITH EPISODE OF REMOVING CANULA FURTHER INSTRUCTION RISK AND BENEFITS EXPLAINED. SATING 94% NO COMPLAIN OF PAIN. NO ACTIVE BLEEDING NOTED AT THIS TIME.NO IV LINE DUE TO PATIENT REFUSED. KEPT PT CLEAN AND COMFORTABLE IN BED. BED LOCKED AND SECURED. WILL CONTINUE TO MONITOR.
--- NOTE | 2017-03-16 19:40 | NUR ---
CLOSING NOTE HANDED OFF REPORT. PATIENT IN ROOM, NO FALLS OR INCIDENTS THIS SHIFT. BREATHING AND LOC UNCHANGED, STABLE,. PATIENT REFUSING OXYGEN VIA NC. DR. MC SPOKE TO PATIENT'S DAUGHTER WITH PLAN TO RETURN TO SNF, HOLD OFF ON COLONOSCOPY PLAN. PATIENT REFUSED BED BATH THIS SHIFT. REFUSED ALL ACCU-CHECKS AND VITAL SIGNS. DOCTOR AND DAUGHTER AWARE. CALL LIGHT IN REACH.
[2017-03-16 20:00] VITALS: BP 154/79
[2017-03-16] MEDS ORDERED: SOD FERRIC GLUC 125 MG in IV NS 0.9% 100 ML IV SCH (21:00)
[2017-03-16] MEDS: TAMSULOSIN 0.4 MG CAP.SR.24H PO SCH (21:35)
[2017-03-16] MEDS: SIMVASTATIN 10 MG TABLET PO SCH (21:35)
[2017-03-17 04:00] VITALS: BP 133/52
[2017-03-17] MEDS: BLOOD SUGAR DIAGNOSTIC 1 EACH STRIP IN SCH ×4 (06:54→22:00)
--- NOTE | 2017-03-17 07:12 | NUR ---
RN NOTES PT ASLEEP WELL AT NIGHT WOKE UP AND AMBULATE TO THE BATHROOM STILL WITH BLACK TARRY STOOL. LIKES TO SLEEP IN THE CHAIR. COMPLIANT WITH MEDS AND ACCUCHECK. AFEBRILE. NO SIGNIFICANT CHANGES SHOWS. O2 2LPM VIA NC KEPT DUE TO EPISODE OF SOB WHILE WALKING. DENIES PAIN. AFEBRILE. VS STABLE. ENDORSED TO AM NURSE TO FOLLOW UP REGARDING THE INSULIN SINCE THE PATIENT IS NOT EATING MUCH. ENDORSED CONTINUITY OF CARE TO AM NURSE.
[2017-03-17] MEDS: ALBUTEROL FS 2.5 MG/0.5 ML VIAL.NEB NEB SCH ×3 (07:54→23:41)
[2017-03-17 08:00] VITALS: BP 129/87
[2017-03-17] MEDS: PANTOPRAZOLE 40 MG VIAL IV SCH (09:00)
[2017-03-17] MEDS: CALCIUM CARB 600MG /VIT D 1 EACH TABLET PO SCH (09:09)
[2017-03-17] MEDS: LEVOTHYROXINE SODIUM 50 MCG TABLET PO SCH (09:09)
[2017-03-17] MEDS: ISOSORBIDE MONONITRATE (30MG) 30 MG TAB.SR.24H PO SCH (09:09)
[2017-03-17] MEDS: FINASTERIDE (5 MG) 5 MG TABLET PO SCH (09:09)
[2017-03-17] MEDS: NIFEdipine XL 60 MG TAB PO SCH (09:09)
[2017-03-17] MEDS: PROSOURCE / PROSTAT (PYXIS) 30 ML UDC PO SCH (09:09)
[2017-03-17] MEDS: CARVEDILOL 6.25 MG TABLET PO SCH ×2 (09:10→20:34)
[2017-03-17] MEDS: CHOLECALCIFEROL 1,000 UNIT TABLET (VIT D3) PO SCH (09:10)
[2017-03-17] MEDS: DOCUSATE SODIUM 100 MG CAPSULE PO SCH ×2 (09:10→20:33)
[2017-03-17] MEDS: DILTIAZEM HCL 30 MG TABLET PO SCH ×3 (09:10→17:18)
[2017-03-17 12:00] VITALS: BP 129/87
[2017-03-17] MEDS ORDERED: SOD FERRIC GLUC 125 MG in IV NS 0.9% 100 ML IV SCH (14:00)
[2017-03-17 16:00] VITALS: BP 118/55
--- NOTE | 2017-03-17 17:30 | NUR ---
pt is refusing to eat and drink after several attempts.refused meals .daughter present at bedside.dr. garcia made aware of present situation.no new orders received from radha. dr. garcia stated to communicate with case management about discharge to SNF
[2017-03-17 18:44] LABS: PROTHROMBIN TIME 10.7 SECS (9.5-12.7)
[2017-03-17] MEDS: WARFARIN SODIUM 2 MG TABLET PO SCH (18:57)
[2017-03-17] MEDS: TAMSULOSIN 0.4 MG CAP.SR.24H PO SCH (20:34)
[2017-03-17] MEDS: SIMVASTATIN 10 MG TABLET PO SCH (20:35)
--- NOTE | 2017-03-17 20:36 | NUR ---
PT RESTING IN BED,REFUSED TO TAKE HIS MEDS,REFUSED VITALS TAKEN, DENIES ANY PAIN ,PT STATED"I'M NANDO"
[2017-03-18 04:00] VITALS: BP 129/60
[2017-03-18] MEDS: BLOOD SUGAR DIAGNOSTIC 1 EACH STRIP IN SCH ×2 (06:40→12:52)
[2017-03-18 06:49] LABS: BASOPHILS % (AUTO) 0.6 % (0.0-2.0); EOSINOPHILS # (AUTO) 0.2 /CMM (0.0-0.7); EOSINOPHILS % (AUTO) 3.2 % (0.0-6.0); HEMATOCRIT 26 % (39-51); HEMOGLOBIN 7.9 g/dL (13.5-17.5); LYMPHOCYTES % (AUTO) 15.3 % (20.0-44.0); MEAN CORPUSCULAR HEMOGLOBIN 26 PG (26.0-33.0); MEAN CORPUSCULAR HGB CONC 31 g/dl (31.0-36.0); MEAN CORPUSCULAR VOLUME 83 fL (80-96); MONOCYTES # (AUTO) 0.7 /CMM (0.1-1.30); MONOCYTES % (AUTO) 11.4 % (2.0-12.0); NEUTROPHILS # (AUTO) 4.4 /CMM (1.8-8.9); NEUTROPHILS % (AUTO) 69.5 % (43.0-81.0); PLATELET COUNT (AUTO) 197 /CMM (150-450); RDW COEFFICIENT OF VARIATION 16.4 (11.5-15.0); RED BLOOD CELL COUNT(AUTO) 3.09 MIL/uL (4.5-6.0); WHITE BLOOD COUNT (AUTO) 6.3 K/uL (4.3-11.0)
--- NOTE | 2017-03-18 07:15 | NUR ---
RN INITIAL NOTES: Rec'd pt asleep on bed, not in any distress, easily arousable, denies any pain/ discomfort, A/Ox2 w/ periods of confusion, Danish speaking but able to understand Swedish. Pt on room air, no SOB noted. Call light placed w/in reach. Bed kept low & in locked position. Will continue to monitor.
[2017-03-18 07:33] LABS: CALCIUM, SERUM 8.4 mg/dL (8.5-10.1); CREATININE 1.2 mg/dL (0.6-1.3); MAGNESIUM 1.7 mg/dL (1.8-2.4); PHOSPHORUS 2.8 mg/dL (2.5-4.9); POTASSIUM 3.3 mmol/L (3.5-5.1)
[2017-03-18] MEDS: ALBUTEROL FS 2.5 MG/0.5 ML VIAL.NEB NEB SCH (07:52)
[2017-03-18 08:00] VITALS: BP 127/57
--- NOTE | 2017-03-18 08:30 | NUR ---
RN NOTES: Pt able to tolerate PT - able to ambulate on the corridors w/ minimal supervision. As per Shruti (PT), pt will be DC from PT, no skilled rehab needed at this time. But needs assistance when ambulating & transferring from bed to chair d/t episode of confusion.
--- NOTE | 2017-03-18 09:00 | NUR ---
RN NOTES: Explained to pt the need to insert IV line but pt strongly refuses it. Risk & benefits explained. made aware.
--- NOTE | 2017-03-18 09:30 | NUR ---
RN NOTES: Daughter is aware that pt is refusing all the treatment being given.
[2017-03-18] MEDS: PROSOURCE / PROSTAT (PYXIS) 30 ML UDC PO SCH (09:36)
[2017-03-18] MEDS: DILTIAZEM HCL 30 MG TABLET PO SCH ×2 (09:36→12:55)
[2017-03-18] MEDS: DOCUSATE SODIUM 100 MG CAPSULE PO SCH (09:37)
[2017-03-18] MEDS: ISOSORBIDE MONONITRATE (30MG) 30 MG TAB.SR.24H PO SCH (09:37)
[2017-03-18] MEDS: CALCIUM CARB 600MG /VIT D 1 EACH TABLET PO SCH (09:37)
[2017-03-18] MEDS: CHOLECALCIFEROL 1,000 UNIT TABLET (VIT D3) PO SCH (09:37)
[2017-03-18] MEDS: LEVOTHYROXINE SODIUM 50 MCG TABLET PO SCH (09:37)
[2017-03-18] MEDS: FINASTERIDE (5 MG) 5 MG TABLET PO SCH (09:37)
[2017-03-18] MEDS: NIFEdipine XL 60 MG TAB PO SCH (09:37)
[2017-03-18 09:38] VITALS: BP 127/57
[2017-03-18] MEDS: CARVEDILOL 6.25 MG TABLET PO SCH (09:38)
[2017-03-18] MEDS ORDERED: Magnesium 1GM/D5W 100ML PREMIX 100 ML IV SCH (10:00)
[2017-03-18] MEDS: POTASSIUM CL. PREMIX PERIPHER. 50 ML IV SCH ×2 (10:00→11:00)
[2017-03-18 12:50] LABS: BASOPHILS % (AUTO) 0.7 % (0.0-2.0); EOSINOPHILS # (AUTO) 0.1 /CMM (0.0-0.7); EOSINOPHILS % (AUTO) 2.3 % (0.0-6.0); HEMATOCRIT 26 % (39-51); HEMOGLOBIN 8.1 g/dL (13.5-17.5); LYMPHOCYTES # (AUTO) 0.9 /CMM (0.8-4.8); LYMPHOCYTES % (AUTO) 14.5 % (20.0-44.0); MEAN CORPUSCULAR HEMOGLOBIN 25 PG (26.0-33.0); MEAN CORPUSCULAR HGB CONC 31 g/dl (31.0-36.0); MEAN CORPUSCULAR VOLUME 83 fL (80-96); MONOCYTES # (AUTO) 0.6 /CMM (0.1-1.30); MONOCYTES % (AUTO) 9.9 % (2.0-12.0); NEUTROPHILS # (AUTO) 4.4 /CMM (1.8-8.9); NEUTROPHILS % (AUTO) 72.6 % (43.0-81.0); PLATELET COUNT (AUTO) 214 /CMM (150-450); RDW COEFFICIENT OF VARIATION 16.5 (11.5-15.0); RED BLOOD CELL COUNT(AUTO) 3.19 MIL/uL (4.5-6.0); WHITE BLOOD COUNT (AUTO) 6.1 K/uL (4.3-11.0)
[2017-03-18] MEDS: INSULIN REGULAR, HUMAN 100 UNIT/ML 3 ML VIAL SQ PRN (12:55)
--- NOTE | 2017-03-18 13:37 | NUR ---
DISCUSSED WITH DR. CLINTON PT. CBC AND PT. STILL REFUSING TX,DAUGHTER AT BEDSIDE AGREED TO D/C BACK PT. TO SNF,OK BY DR. CLINTON REPORT GIVEN TO OBEY IN [place] NOTIFIED.
--- NOTE | 2017-03-18 14:20 | NUR ---
MANIFEST CLERK NOTES: Discharge instructions and documents given to EMT. Pt DC'd to [facility] in stable condition via gurney accompanied by inclined railway operator and daughter. VS refused to be taken by pt. Belongings given to inclined railway operator.
== END 2017-03-18 14:36 | DRG 377 ==
LOC: ER 12:19 → ICU 15:03 → TELE-TD 15:40 → TELE1 03-14 10:01 → MEDSG1 03-14 10:10
PROVIDERS: ADMIT Internal Medicine; ATTEND Internal Medicine
DX: K57.91 Diverticulosis of intestine, part unspecified, without perforation or abscess with bleeding (principal); G93.40 Encephalopathy, unspecified; D68.9 Coagulation defect, unspecified; Z95.1 Presence of aortocoronary bypass graft; Z86.73 Personal history of transient ischemic attack (TIA), and cerebral infarction without residual deficits; F03.90 Unspecified dementia, unspecified severity, without behavioral disturbance, psychotic disturbance, mood disturbance, and anxiety; E03.9 Hypothyroidism, unspecified; I12.9 Hypertensive chronic kidney disease with stage 1 through stage 4 chronic kidney disease, or unspecified chronic kidney disease; I25.10 Atherosclerotic heart disease of native coronary artery without angina pectoris; I48.91 Unspecified atrial fibrillation; N18.9 Chronic kidney disease, unspecified; N40.0 Benign prostatic hyperplasia without lower urinary tract symptoms; Z79.01 Long term (current) use of anticoagulants; D50.0 Iron deficiency anemia secondary to blood loss (chronic); K21.9 Gastro-esophageal reflux disease without esophagitis
CPT/HCPCS: 36415; 71010-TC; 80048-TC; 80053-TC; 80076-TC; 82272-TC; 82306; 82378; 82728-TC; 82746; 82962-TC; 83540-TC; 83615-TC; 83735-TC; 84100-TC; 84443-TC; 84550-TC; 85025-TC; 85610-TC; 85652-TC; 85730-TC; 86850-TC; 87081-TC; 94799-TC; 97001-TC; A4216; A4606; C9113; C9132; J1815; J2916; J3430; J7030; Z7610

== ENCOUNTER 2017-03-19 14:08 | Inpatient (IN) | payer MEDICARE, MEDICAID ==
[~2017-03-19] VITALS: Ht 162.6 cm; Wt 72.6 kg
[~2017-03-19 14:08] MED LIST changes: +ALBU2.5V38 NEB; +AMIN30LI2 PO; -BENA5TAB2 PO; +CRAN3875 PO; +CRAN425C PO; +DILT30TA2 PO; -FAMO-131 PO; +IPRA0.2S49 NEB; +LEVA1.25 NEB; -WARF3TAB29 PO
--- NOTE | 2017-03-19 14:43 | NUR ---
PT PRESENTS TO ER WITH DAUGHTER AT BEDSIDE C/O CP STARTING APPROX 1350. PT IS UNABLE TO DESCRIBE THE PAIN D/T APHASIA; ABLE TO ANSWER YES AND NO QUESTIONS ONLY. DESCRIBED PAIN 9 OR 10/10, RECEIVED NITRO BELT GLASS SANDER, NOW RELIEVED TO 2/10, PER DAUGHTER. SKIN WARM NONDIAPHORETIC. RESP EVEN UNLABORED. NON-PROVOKED. NAD NOTED. IN ER BED 04 ON MONITOR. EKG ALREADY COMPLETED AND GIVEN TO MD FOR EVAL. IV PRESENT BELT GLASS SANDER.
--- NOTE | 2017-03-19 15:18 | NUR ---
ATTEMPTED TO REACH NURSING SENIOR HARDWARE ENGINEER FOR BED PLACEMENT
[2017-03-19 15:41] LABS: BASOPHILS % (AUTO) 0.7 % (0.0-2.0); EOSINOPHILS # (AUTO) 0.1 /CMM (0.0-0.7); EOSINOPHILS % (AUTO) 2.1 % (0.0-6.0); HEMATOCRIT 27 % (39-51); HEMOGLOBIN 8.8 g/dL (13.5-17.5); LYMPHOCYTES % (AUTO) 14.9 % (20.0-44.0); MEAN CORPUSCULAR HEMOGLOBIN 26 PG (26.0-33.0); MEAN CORPUSCULAR HGB CONC 32 g/dl (31.0-36.0); MEAN CORPUSCULAR VOLUME 82 fL (80-96); MONOCYTES # (AUTO) 0.7 /CMM (0.1-1.30); MONOCYTES % (AUTO) 10.3 % (2.0-12.0); NEUTROPHILS # (AUTO) 4.7 /CMM (1.8-8.9); PLATELET COUNT (AUTO) 214 /CMM (150-450); RED BLOOD CELL COUNT(AUTO) 3.36 MIL/uL (4.5-6.0); WHITE BLOOD COUNT (AUTO) 6.5 K/uL (4.3-11.0)
--- NOTE | 2017-03-19 15:44 | NUR ---
MADE ANOTHER ATTEMPT TO REACH NURSING DEHYDRATOR OPERATOR - WENT TO [employer]IC[employer]
[2017-03-19 15:51] LABS: CALCIUM, SERUM 9.3 mg/dL (8.5-10.1); CREATININE 1.2 mg/dL (0.6-1.3); POTASSIUM 3.2 mmol/L (3.5-5.1)
[2017-03-19 15:54] LABS: INR 1.04 (0.87-1.13); PROTHROMBIN TIME 10.8 SECS (9.5-12.7)
[2017-03-19 15:57] LABS: BILIRUBIN,DIRECT 0.2 mg/dL (0.0-0.2); BILIRUBIN,TOTAL 0.5 mg/dL (0.2-1.0); TOTAL PROTEIN, SERUM 6.2 g/dL (6.4-8.2)
[2017-03-19 15:59] LABS: TROPONIN I 0.025 ng/mL (0.00-0.056)
--- NOTE | 2017-03-19 16:50 | NUR ---
PAGING POT WASHER FOR DR RAMONA CLINTON
--- NOTE | 2017-03-19 16:56 | NUR ---
DR CLINTON CALLED TO SPEAK TO DR RENEE
--- NOTE | 2017-03-19 17:15 | NUR ---
PT TRANSPORTED TO [facility] IN STABLE CONDITION VIA ACLS PROTOCOL
[2017-03-19] MEDS ORDERED: POTASSIUM CHLORIDE 20 MEQ TAB.PRT.SR PO ONE (17:30)
--- NOTE | 2017-03-19 17:45 | NUR ---
GRANITE FABRICATOR NOTES ADMITTED THIS 87Y/O MALE FROM ER VIA [facility] WITH ADM DX OF GI BLEED. AOX2-3. BULGARIAN SPEAKING. WITH PIV LH #20 INTACT AND PATENT. VITAL SIGNS TAKEN AND RECORDED. BODY CHECKED DONE, PHOTOS TAKEN ATTACHED IN THE CHART. SPOKE TO DR. DOWNING FOR ADMISSION ORDERS. MD SAID TO CONTINUE ALL THE HOME MEDICATIONS. ORDERS CARRIED OUT. NO BELONGINGS NOTED. PATIENT DENIES ANY SOB OR DISCOMFORT AT THIS TIME. FAMILY AT BEDSIDE. CALL LIGHT WITHIN REACH, BED IN LOW POSITION, BED ALARM ACTIVATED FOR SAFETY MEASURES. WILL CONTINUE TO MONITOR.
[2017-03-19 17:56] VITALS: BP 143/71
[2017-03-19] MEDS ORDERED: POTASSIUM CHLORIDE 20 MEQ TAB.PRT.SR PO SCH (18:30)
[2017-03-19] MEDS ORDERED: ALBUTEROL FS 2.5 MG/3 ML VIAL.NEB NEB PRN (19:00)
[2017-03-19] MEDS ORDERED: IPRATROPIUM NEB FS 0.5 MG/2.5 ML AMPUL.NEB NEB PRN (19:00)
[2017-03-19] MEDS ORDERED: ACETAMINOPHEN 325 MG TABLET PO PRN (19:00)
--- NOTE | 2017-03-19 19:09 | NUR ---
EQUIPMENT OR MACHINERY CLEANER NOTES ENDORSED TO INCOMING SHIFT FOR CELIA. PATIENT ATTACHED TO TELE MONITORING AFIB 94. WILL CONTINUE TO MONITOR.
--- NOTE | 2017-03-19 19:10 | NUR ---
RN OPEN NOTES RECEIVED PATIENT AWAKE IN BED EATING. A/O X2-3. NO SIGNS OF DISTRESS OR DISCOMFORT. BREATHING EVEN AND UNLABORED. IV ACCESS IN L HAND, PATENT AND INTACT, NO SIGNS OF REDNESS OR INFILTRATION. BED IN LOW LOCKED POSITION WITH SIDE RAILS X2. CALL LIGHT WITHIN REACH. WILL CONTINUE TO MONITOR. Addendum: 03/19/17 at 2003 by KB VARGAS RN ON TELE MONITORING WITH AFIB HR 94 NOTED.
[2017-03-19 20:00] VITALS: BP 117/65
[2017-03-19] MEDS: CARVEDILOL 6.25 MG TABLET PO SCH (21:21)
[2017-03-19] MEDS: SIMVASTATIN 10 MG TABLET PO SCH (21:21)
[2017-03-19] MEDS: TAMSULOSIN 0.4 MG CAP.SR.24H PO SCH (21:21)
[2017-03-19] MEDS: MAGNESIUM HYDROXIDE 30 ML UDC PO SCH (21:21)
[2017-03-19] MEDS: DOCUSATE SODIUM 100 MG CAPSULE PO SCH (21:21)
[2017-03-20] VITALS: BP 136/70
[2017-03-20 04:00] VITALS: BP 138/97
--- NOTE | 2017-03-20 06:53 | NUR ---
RN CLOSING NOTES PATIENT AWAKE IN BED. A/O X2-3. NO SIGNS OF DISTRESS OR DISCOMFORT. BREATHING EVEN AND UNLABORED. ON 2LPM O2 VIA NC. ON TELE WITH AFIB-98 NOTED. IV ACCESS IN L HAND, PATENT AND INTACT, NO SIGNS OF REDNESS OR INFILTRATION. ALL NEEDS MET. NO SIGNIFICANT CHANGES THROUGH THE NIGHT. BED IN LOW LOCKED POSITION WITH SIDE RAILS X2. CALL LIGHT WITHIN REACH. WILL ENDORSE TO AM SHIFT FOR CELIA.
--- NOTE | 2017-03-20 07:30 | NUR ---
AM RN NOTE Received patient sleeping comfortably in his bed, no acute distress noted. On O2 2L/min via NC. Resp even and nonlabored. Skin warm and dry to touch. IV site intact and patent. Bed in low locked position. Will continue to monitor.
[2017-03-20 08:00] VITALS: BP 134/72
[2017-03-20 08:18] LABS: CALCIUM, SERUM 8.8 mg/dL (8.5-10.1); CREATININE 1.2 mg/dL (0.6-1.3); POTASSIUM 3.9 mmol/L (3.5-5.1)
[2017-03-20] MEDS: PROSOURCE / PROSTAT (PYXIS) 30 ML UDC PO SCH (08:22)
[2017-03-20] MEDS: FINASTERIDE (5 MG) 5 MG TABLET PO SCH (08:22)
[2017-03-20] MEDS: NIFEdipine XL 60 MG TAB PO SCH (08:22)
[2017-03-20] MEDS: CALCIUM CARB 600MG /VIT D 1 EACH TABLET PO SCH (08:22)
[2017-03-20] MEDS: DOCUSATE SODIUM 100 MG CAPSULE PO SCH ×3 (08:23→21:00)
[2017-03-20] MEDS: LEVOTHYROXINE SODIUM 50 MCG TABLET PO SCH (08:24)
[2017-03-20] MEDS: ISOSORBIDE MONONITRATE (30MG) 30 MG TAB.SR.24H PO SCH (08:25)
[2017-03-20] MEDS: CHOLECALCIFEROL 1,000 UNIT TABLET (VIT D3) PO SCH (08:25)
[2017-03-20] MEDS: AGGRENOX(ASA/DIPYRIDAMOLE) 1 CAP CPMP.12HR PO SCH (08:25)
[2017-03-20] MEDS: CARVEDILOL 6.25 MG TABLET PO SCH ×2 (08:25→21:00)
[2017-03-20] MEDS: DILTIAZEM HCL 30 MG TABLET PO SCH ×4 (08:25→17:25)
[2017-03-20] MEDS ORDERED: Medication Not On Formulary EA (Cranberry Extract (Cranberry) 425 MG) PO SCH (09:00)
[2017-03-20] MEDS ORDERED: Medication Not On Formulary EA (Cran/Vitc/Mannose/Inulin/Brom (Uti-Stat Liquid) 30 ML) PO SCH (09:00)
[2017-03-20] MEDS: LEVALBUTEROL HCL NEB 1.25 MG/0.5 ML VIAL.NEB IH SCH (12:47)
--- NOTE | 2017-03-20 13:00 | NUR ---
AM RN NOTE Dr. Nair made aware that pt refused Cardizem at noon with NNO.
--- NOTE | 2017-03-20 13:12 | NUR ---
AM RN NOTE Dr. Nair gave new order for GI consult with Dr. Escoto. Called his office and spoke with him. Per Dr. Escoto, pt refused colonoscopy last time and he wants the staff to confirm with daughter and pt if they will allow the procedure at this time and then call him back. Called daughter (Devi) with no response, left msg to call back.
--- NOTE | 2017-03-20 15:38 | NUR ---
AM RN NOTE Consent for colonoscopy signed by daughter (Devi). Dr. Escoto made aware and he spoke with daughter over the phone.
[2017-03-20 16:00] VITALS: BP 143/74
--- NOTE | 2017-03-20 18:11 | NUR ---
AM RN NOTE Patient lying in his bed, denies any pain or discomfort at this time. IV site intact and patent. Bed in low locked position. Will endorse to next shift for CELIA.
--- NOTE | 2017-03-20 19:20 | NUR ---
RN NOTE RECEIVED REPORT. PT AWAKE AND ALERT, APPEARS TIRED. NO S/S OF RESPIRATORY DISTRESS AT THIS TIME. ON NC 2L, NON-LABORED AND EVEN BREATHING. L HAND INTACT AND PATENT. PT FOR COLONOSCOPY TOMORROW MORNING, GOLETLYE STARTING AT 1999. FAMILY AT BEDSIDE, STATING THAT PT HAS NO APPETITE AND MIGHT NOT DRINK THE PROCEDURE PREP. PATIENT TEACHING PROVIDED. WILL MONITOR AND OBSERVE.
[2017-03-20] MEDS ORDERED: PEG 3350/NA SULF,BICARB,CL/KCL 4,000 ML BOTTLE PO ONE (20:00)
[2017-03-20 20:09] VITALS: BP 124/61
--- NOTE | 2017-03-20 21:20 | NUR ---
RN NOTE INFORMED DOCTOR NUHA (GI) THAT PT IS NON-COMPLIANT WITH PROCEDURE PREP FOR COLONOSCOPY TOMORROW. DPOA AWARE OF SITUATION WELL.
--- NOTE | 2017-03-20 21:45 | NUR ---
RN NOTE PT REFUSED ALL MEDICATIONS DESPITE ENCOURAGEMENT AND TEACHING. WILL MONITOR.
[2017-03-20] MEDS: MAGNESIUM HYDROXIDE 30 ML UDC PO SCH (21:50)
[2017-03-20] MEDS: TAMSULOSIN 0.4 MG CAP.SR.24H PO SCH (21:50)
[2017-03-20] MEDS: SIMVASTATIN 10 MG TABLET PO SCH (21:51)
--- NOTE | 2017-03-21 02:00 | NUR ---
RN NOTE PT RESTING IN BED WITH EYES CLOSED. NO DISTRESS NOTED AT THIS TIME. WILL MONITOR.
--- NOTE | 2017-03-21 06:49 | NUR ---
RN NOTE NO SIGNIFICANT CHANGES OVERNIGHT. AAOX2, CONFUSED. PT KEPT COMFORTABLE AND CLEAN. DID NOT DRINK ANY PROCEDURE PREP FOR SCHEDULED COLONSCOPY. MD SANTACRUZ AWARE. NO DISTRESS NOTED AT THIS TIME. WILL F/U WITH DAY SHIFT FOR CELIA.
--- NOTE | 2017-03-21 07:20 | NUR ---
RN MS OPENING NOTES Received patient in bed, asleep, head of bed elevated, no SOB or distress noted. On O2 at 2lpm NC and tolerated well. A/O X 2. IV is intact and patent without infiltration. Kept patient clean and comfortable in bed, call light within patient reach, will continue to monitor accordingly.
[2017-03-21] MEDS: LEVALBUTEROL HCL NEB 1.25 MG/0.5 ML VIAL.NEB IH SCH ×3 (07:35→23:22)
[2017-03-21 08:00] VITALS: BP 153/72
[2017-03-21] MEDS: NIFEdipine XL 60 MG TAB PO SCH (08:51)
[2017-03-21] MEDS: CALCIUM CARB 600MG /VIT D 1 EACH TABLET PO SCH (08:51)
[2017-03-21] MEDS: LEVOTHYROXINE SODIUM 50 MCG TABLET PO SCH (08:51)
[2017-03-21] MEDS: DOCUSATE SODIUM 100 MG CAPSULE PO SCH ×2 (08:51→21:03)
[2017-03-21] MEDS: FINASTERIDE (5 MG) 5 MG TABLET PO SCH (08:51)
[2017-03-21] MEDS: DILTIAZEM HCL 30 MG TABLET PO SCH ×3 (08:52→17:25)
[2017-03-21] MEDS: ISOSORBIDE MONONITRATE (30MG) 30 MG TAB.SR.24H PO SCH (08:52)
[2017-03-21] MEDS: AGGRENOX(ASA/DIPYRIDAMOLE) 1 CAP CPMP.12HR PO SCH (08:52)
[2017-03-21] MEDS: PROSOURCE / PROSTAT (PYXIS) 30 ML UDC PO SCH (08:53)
[2017-03-21] MEDS: CHOLECALCIFEROL 1,000 UNIT TABLET (VIT D3) PO SCH (08:53)
[2017-03-21] MEDS: CARVEDILOL 6.25 MG TABLET PO SCH ×2 (08:53→21:00)
[2017-03-21 10:00] VITALS: BP 153/72
--- NOTE | 2017-03-21 12:07 | NUR ---
RT NOTE ROUTINE TX WILL CONTINUE @1530 FOR Q8 ORDERED.
--- NOTE | 2017-03-21 13:00 | NUR ---
RN MS NOTES Patient did not drink the golyte and colonoscopy was not performed.
[2017-03-21 16:00] VITALS: BP 94/50
--- NOTE | 2017-03-21 16:54 | NUR ---
RN MS NOTES Power of lean manufacturing engineer came to see the patient and she wants to have someone to help the patient to encourage him to eat.
--- NOTE | 2017-03-21 19:15 | NUR ---
RN MS CLOSING NOTES All needs provided, attended, and anticipated. Kept patient clean and comfortable in bed, call light within patient reach, will continue to monitor accordingly. Endorsed to next shift RN to continue care
--- NOTE | 2017-03-21 19:25 | NUR ---
RN OPEN NOTES RECEIVED PATIENT AWAKE IN BED. A/O X2. NO SIGNS OF DISTRESS OR DISCOMFORT. BREATHING EVEN AND UNLABORED. ON 2LPM O2 VIA NC. IV ACCESS IN L HAND PATENT AND INTACT. NO SIGNS OF REDNESS OR INFILTRATION. BED IN LOW LOCKED POSITION WITH SIDE RAIL X2. CALL LIGHT WITHIN REACH. WILL CONTINUE TO MONITOR.
[2017-03-21 20:00] VITALS: BP 104/56
[2017-03-21] MEDS: TAMSULOSIN 0.4 MG CAP.SR.24H PO SCH (21:03)
[2017-03-21] MEDS: SIMVASTATIN 10 MG TABLET PO SCH (21:03)
[2017-03-21] MEDS: MAGNESIUM HYDROXIDE 30 ML UDC PO SCH (21:07)
[2017-03-21] MEDS ORDERED: IV NS 0.9% 0 ML IV ONE (22:20)
[2017-03-21] MEDS ORDERED: IV SET PRIMARY PUMP SET 1 EA INFUS.SET MC ONE (22:20)
--- NOTE | 2017-03-22 06:05 | NUR ---
RN NOTES PATIENT REFUSED AM LAB DRAW X3. PATIENT EDUCATION REINFORCED. WILL CONTINUE TO MONITOR.
--- NOTE | 2017-03-22 06:41 | NUR ---
RN OPEN NOTES PATIENT RESTING IN BED. A/O X2. NO SIGNS OF DISTRESS OR DISCOMFORT. BREATHING EVEN AND UNLABORED. IV ACCESS IN L HAND PATENT AND INTACT. NO SIGNS OF REDNESS OR INFILTRATION. ALL NEEDS MET. NO SIGNIFICANT CHANGES THROUGH THE NIGHT. BED IN LOW LOCKED POSITION WITH SIDE RAIL X2. CALL LIGHT WITHIN REACH. WILL ENDORSE TO AM SHIFT FOR CELIA.
--- NOTE | 2017-03-22 07:30 | NUR ---
RECEIVED PT. THIS AM A/O X2,NO COMPLAINTS.VS STABLE.
[2017-03-22 08:00] VITALS: BP 123/83
[2017-03-22] MEDS: LEVALBUTEROL HCL NEB 1.25 MG/0.5 ML VIAL.NEB IH SCH ×2 (08:07→14:45)
[2017-03-22] MEDS: AGGRENOX(ASA/DIPYRIDAMOLE) 1 CAP CPMP.12HR PO SCH ×2 (09:00→09:10)
[2017-03-22] MEDS: ISOSORBIDE MONONITRATE (30MG) 30 MG TAB.SR.24H PO SCH (09:00)
[2017-03-22] MEDS: NIFEdipine XL 60 MG TAB PO SCH (09:00)
[2017-03-22] MEDS: DILTIAZEM HCL 30 MG TABLET PO SCH ×3 (09:00→13:00)
[2017-03-22] MEDS: CALCIUM CARB 600MG /VIT D 1 EACH TABLET PO SCH ×3 (09:00→10:27)
[2017-03-22] MEDS: DOCUSATE SODIUM 100 MG CAPSULE PO SCH ×2 (09:00→09:10)
[2017-03-22] MEDS: CHOLECALCIFEROL 1,000 UNIT TABLET (VIT D3) PO SCH ×2 (09:00→09:12)
[2017-03-22] MEDS: CARVEDILOL 6.25 MG TABLET PO SCH ×2 (09:00→09:12)
[2017-03-22] MEDS: PROSOURCE / PROSTAT (PYXIS) 30 ML UDC PO SCH (09:10)
[2017-03-22] MEDS: FINASTERIDE (5 MG) 5 MG TABLET PO SCH (09:11)
[2017-03-22] MEDS: LEVOTHYROXINE SODIUM 50 MCG TABLET PO SCH (09:47)
[2017-03-22 10:04] LABS: BASOPHILS % (AUTO) 0.7 % (0.0-2.0); EOSINOPHILS # (AUTO) 0.2 /CMM (0.0-0.7); EOSINOPHILS % (AUTO) 2.9 % (0.0-6.0); HEMATOCRIT 29 % (39-51); HEMOGLOBIN 8.8 g/dL (13.5-17.5); LYMPHOCYTES % (AUTO) 15.4 % (20.0-44.0); MEAN CORPUSCULAR HEMOGLOBIN 25 PG (26.0-33.0); MEAN CORPUSCULAR HGB CONC 31 g/dl (31.0-36.0); MEAN CORPUSCULAR VOLUME 81 fL (80-96); MONOCYTES # (AUTO) 0.6 /CMM (0.1-1.30); MONOCYTES % (AUTO) 9.8 % (2.0-12.0); NEUTROPHILS # (AUTO) 4.6 /CMM (1.8-8.9); NEUTROPHILS % (AUTO) 71.2 % (43.0-81.0); PLATELET COUNT (AUTO) 232 /CMM (150-450); RDW COEFFICIENT OF VARIATION 16.2 (11.5-15.0); RED BLOOD CELL COUNT(AUTO) 3.52 MIL/uL (4.5-6.0); WHITE BLOOD COUNT (AUTO) 6.5 K/uL (4.3-11.0)
[2017-03-22 10:18] LABS: CALCIUM, SERUM 8.9 mg/dL (8.5-10.1); CREATININE 1.3 mg/dL (0.6-1.3); MAGNESIUM 1.8 mg/dL (1.8-2.4); PHOSPHORUS 3.3 mg/dL (2.5-4.9); POTASSIUM 3.7 mmol/L (3.5-5.1)
--- NOTE | 2017-03-22 10:30 | NUR ---
DTR. RAE CALLING IN AND RN REPORTED PT. REFUSING MOST OF MEDS.
[2017-03-22 13:00] VITALS: BP 124/80
--- NOTE | 2017-03-22 15:44 | NUR ---
REFUSED DC PHOTOS,ALL PAPERWORK SIGNED INCLUDING BELONGING SHEET.DTR. HERE JUST PRIOR TO DC AND AWARE PT. LEAVING.HEP LOCK OUT.TAKEN TO FACILITY.REPORT CALLED TO [facility].TRANSPORTED VIA AMBULANCE.
[2017-03-23] MEDS ORDERED: LEVA0.6320 IH (19:00)
[2017-03-23] MEDS ORDERED: BLOO-668 IN (19:00)
[2017-03-23] MEDS ORDERED: IPRA0.2S9 IH (19:00)
[2017-03-23] MEDS ORDERED: INSU100V11 SQ (19:00)
[2017-03-23] MEDS ORDERED: CHOL100044 PO (19:00)
== END 2017-03-22 15:45 | DRG 392 ==
LOC: ER 14:09 → TELE 16:16 → MED 03-20 16:39
PROVIDERS: ADMIT Internal Medicine; ATTEND Internal Medicine Nephrology
DX: K57.90 Diverticulosis of intestine, part unspecified, without perforation or abscess without bleeding (principal); J90 Pleural effusion, not elsewhere classified; D64.9 Anemia, unspecified; I12.9 Hypertensive chronic kidney disease with stage 1 through stage 4 chronic kidney disease, or unspecified chronic kidney disease; E11.22 Type 2 diabetes mellitus with diabetic chronic kidney disease; N18.9 Chronic kidney disease, unspecified; K21.9 Gastro-esophageal reflux disease without esophagitis; Z95.1 Presence of aortocoronary bypass graft; N40.0 Benign prostatic hyperplasia without lower urinary tract symptoms; E03.9 Hypothyroidism, unspecified; I48.91 Unspecified atrial fibrillation; F03.90 Unspecified dementia, unspecified severity, without behavioral disturbance, psychotic disturbance, mood disturbance, and anxiety; Z86.73 Personal history of transient ischemic attack (TIA), and cerebral infarction without residual deficits; Z79.01 Long term (current) use of anticoagulants
CPT/HCPCS: 36415; 71010-TC; 80048-TC; 80076-TC; 83735-TC; 84100-TC; 84484-TC; 85025-TC; 85730-TC; 86850-TC; 87081-TC; 94799-TC; 97001-TC; 97116-TC; 97530-TC; A4606; A6403; J7050; Z7610

== ENCOUNTER 2017-04-18 17:15 | Inpatient (IN) | payer MEDICARE, MEDICAID ==
[~2017-04-18] VITALS: Ht 157.5 cm; Wt 63.5 kg
[~2017-04-18 17:15] MED LIST changes: +BLOO-668 IN; -CHOL100030 PO; +CHOL100044 PO; +INSU100V11 SQ; -IPRA0.2S49 NEB; +IPRA0.2S9 IH; +LEVA0.6320 IH; -LEVA1.25 NEB
--- NOTE | 2017-04-18 17:19 | NUR ---
CALLED RT FOR BREATHING TREATMENT
--- NOTE | 2017-04-18 17:25 | NUR ---
LAC #18 IV ACCESS BLOOD SAMPLE COLLECTED SENT TO LAB. PT HAS RHAND #20 PRODUCTION EDITOR
[2017-04-18] MEDS ORDERED: methylPREDNISolone SOD SUCC 125 MG/2ML VIAL IV ONE ×2 (17:30→21:30)
[2017-04-18] MEDS ORDERED: IPRATROPIUM NEB FS 0.5 MG/2.5 ML AMPUL.NEB NEB ONE (17:30)
[2017-04-18] MEDS ORDERED: ALBUTEROL FS 2.5 MG/3 ML VIAL.NEB CONTNEB ONE (17:30)
[2017-04-18] MEDS ORDERED: ALBUTEROL FS 2.5 MG/3 ML VIAL.NEB ONE ×2 (17:31→19:21)
[2017-04-18] MEDS ORDERED: IPRATROPIUM NEB FS 0.5 MG/2.5 ML AMPUL.NEB ONE (17:32)
[2017-04-18] MEDS ORDERED: methylPREDNISolone SOD SUCC 125 MG/2ML VIAL ONE (17:34)
--- NOTE | 2017-04-18 17:36 | NUR ---
PUBLIC AFFAIRS DIRECTOR AT BEDSIDE
[2017-04-18 17:42] LABS: BASOPHILS % (AUTO) 0.3 % (0.0-2.0); EOSINOPHILS # (AUTO) 0.1 /CMM (0.0-0.7); EOSINOPHILS % (AUTO) 1.8 % (0.0-6.0); HEMATOCRIT 28 % (39-51); HEMOGLOBIN 8.7 g/dL (13.5-17.5); LYMPHOCYTES # (AUTO) 0.6 /CMM (0.8-4.8); LYMPHOCYTES % (AUTO) 8.3 % (20.0-44.0); MEAN CORPUSCULAR HEMOGLOBIN 25 PG (26.0-33.0); MEAN CORPUSCULAR HGB CONC 32 g/dl (31.0-36.0); MEAN CORPUSCULAR VOLUME 79 fL (80-96); MONOCYTES # (AUTO) 0.6 /CMM (0.1-1.30); MONOCYTES % (AUTO) 8.5 % (2.0-12.0); NEUTROPHILS # (AUTO) 6.1 /CMM (1.8-8.9); NEUTROPHILS % (AUTO) 81.1 % (43.0-81.0); PLATELET COUNT (AUTO) 213 /CMM (150-450); RDW COEFFICIENT OF VARIATION 18.3 (11.5-15.0); RED BLOOD CELL COUNT(AUTO) 3.49 MIL/uL (4.5-6.0); WHITE BLOOD COUNT (AUTO) 7.4 K/uL (4.3-11.0)
--- NOTE | 2017-04-18 17:46 | NUR ---
CALLED NURSING SUP. FOR MAHAMED BED
[2017-04-18 17:48] LABS: CALCIUM, SERUM 9.1 mg/dL (8.5-10.1); CARBON DIOXIDE 30 mmol/L (21-32); CHLORIDE 106 mmol/L (98-107); CREATININE 1.8 mg/dL (0.6-1.3); GLUCOSE 177 mg/dL (74-106); POTASSIUM 3.8 mmol/L (3.5-5.1); SODIUM SERUM 141 mmol/L (136-145); UREA NITROGEN, BLOOD 37 mg/dL (7-18)
[2017-04-18 17:57] LABS: TROPONIN I < 0.017 ng/mL (0.00-0.056)
[2017-04-18 18:02] LABS: ALANINE AMINOTRANSFERASE 18 U/L (12-78); ALBUMIN 3.4 g/dL (3.4-5.0); ALKALINE PHOSPHATASE 45 U/L (46-116); ASPARTATE AMINOTRANSFERASE 7 U/L (15-37); B-TYPE NATRIURETIC PEPTIDE 3520 PG/ML (0-125); BILIRUBIN,DIRECT 0.2 mg/dL (0.0-0.2); BILIRUBIN,TOTAL 0.5 mg/dL (0.2-1.0); TOTAL PROTEIN, SERUM 6.8 g/dL (6.4-8.2)
[2017-04-18] MEDS ORDERED: FUROSEMIDE 20 MG/2 ML VIAL ONE (18:12)
--- NOTE | 2017-04-18 18:17 | NUR ---
'S GROUP CALLED, CLIENT RELATIONS SPECIALIST, PAGED TO CALL BACK
[2017-04-18 18:18] LABS: ABG BASE EXCESS -0.3 mmol/L; ABG OXYGEN SATURATION 93.5 % (92.0-98.5); ABG PCO2 39.3 mmHg (35.0-45.0); ABG PH 7.408 (7.350-7.450); ABG PO2 72.3 mmHg (75.0-100.0); AaDO2 232.8 mmHg; COHb 1.1 % (0.5-1.5); MetHb 0.5 % (0.0-1.5); SITE, ABG Right Radial; VENT MODE, BG MASK
[2017-04-18] MEDS ORDERED: FUROSEMIDE 20 MG/2 ML VIAL IV ONE (18:30)
--- NOTE | 2017-04-18 18:50 | NUR ---
ON PHONE WITH
--- NOTE | 2017-04-18 19:02 | NUR ---
RECEIVED REPORT FROM EDWARDO HALL FOR CONTINUE OF CARE.
--- NOTE | 2017-04-18 19:06 | NUR ---
REPORT GIVEN TO HALLE FOR CELIA
--- NOTE | 2017-04-18 19:07 | NUR ---
Brock salas in ED - 04/18/[address] ASHLEY AT BEDSIDE SPEAKING TO DAUGHTER REGAURDING PLAN OF CARE.
--- NOTE | 2017-04-18 19:08 | NUR ---
DR. ASHLEY AT BEDSIDE SPEAKING TO DAUGHTER REGARDING PLAN OF CARE.
[2017-04-18] MEDS ORDERED: FERR-58 PO (19:19)
[2017-04-18] MEDS ORDERED: WARF3TAB29 PO (19:19)
--- NOTE | 2017-04-18 19:28 | NUR ---
RT AT BEDSIDE FOR BREATHING TX.
[2017-04-18] MEDS ORDERED: ALBUTEROL FS 2.5 MG/3 ML VIAL.NEB NEB ONE (19:30)
--- NOTE | 2017-04-18 19:32 | NUR ---
PT ASSIGNED MAHAMED 118-2
--- NOTE | 2017-04-18 19:43 | NUR ---
RN NOTES RECEIVED REPORT FROM ER NURSE LELA.
--- NOTE | 2017-04-18 19:51 | NUR ---
REPROT GIVEN TO EDWARDO LOZADA FOR CONTINUE OF CARE FOR MAHAMED BED 118-2
--- NOTE | 2017-04-18 20:30 | NUR ---
MAHAMED RN INITIAL NOTES RECEIVED PATIENT VIA GURNEY, AWAKE, KITTITIAN SPEAKING, VAHID RAE AT BEDSIDE, PER NIECE PATIENT UNDERSTANDS DANISH AND PATIENT IS A/OX3. 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 RESPIRATIONS LABORED, ON 57NOCA0 VIA SIMPLE MASK, SPO2 94%SKIN WARM AND DRY TO TOUCH. KYRA HAS POA. RECEIVED MEDICAL INFORMATION FROM PREVIOUS RECORDS AND FROM KYRA. PER KYRA. PATIENT AGRESSIVE, COMBATIVE WHEN APPROACHED. SAMANTHAECE ASSISTED WITH SPEAKING WITH PATIENT, ABLE TO PERFORM ADLS AND ASSESS SKIN. PER NIECE PATIENT DOES NOT LIKE BEING IN HOSPITALS AND HAS EPISODES OF GETTING UP FREQUENTLY AND COMBATIVENESS. PATIENT ABLE TO FOLLOW COMMANDS. ON TELE MONITOR AFIB UNCONTROLLED 113. DENIES PAIN AT THIS TIME. ORIENTED PATIENT TO CALL LIGHT SYSTEM. SIDE RAILS UP AND LOCKED. BED KEPT AT LOWEST POSITION. BED ALARM ON. CALL LIGHT KEPT WITHIN EASY REACH. PENDING ADMITTING ORDERS. WILL CONTINUE TO MONITOR.
--- NOTE | 2017-04-18 20:31 | NUR ---
PT TRASNFERED PER ACLS PROTOCOL
[2017-04-18] MEDS ORDERED: FUROSEMIDE 20 MG/2 ML VIAL IV SCH (21:30)
[2017-04-18] MEDS ORDERED: ACETAMINOPHEN 325 MG TABLET PO PRN (22:00)
[2017-04-18] MEDS ORDERED: DEXTROSE 50%-WATER 50 ML DISP.SYRIN IV PRN (22:00)
[2017-04-18] MEDS: BLOOD SUGAR DIAGNOSTIC 1 EACH STRIP IN SCH (22:17)
[2017-04-18] MEDS: INSULIN REGULAR, HUMAN 100 UNIT/ML 3 ML VIAL SQ PRN (22:26)
--- NOTE | 2017-04-18 23:20 | NUR ---
MAHAMED RN NOTES PATIENT NOTED TAKING OF OXYGEN MASK MANY TIMES. EXPLAINED TO PATIENT THE NEED FOR OXYGEN. PATIENT BECAME AGGRESSIVE AND THREW OXYGEN MASK TOWARDS ME. ASKED ANOTHER RN FOR ASSISTANCE, PATIENT BECAME MORE AGGRESSIVE AND THREW OTHER ITEMS TOWARDS NURSES. CALLED SECURITY FOR ASSISTANCE AND PATIENT FINALLY CALMED DOWN BUT STILL REFUSED TO BE PLACED ON OXYGEN, CHECKED VS 137/69, PULSE 123, SPO2 93% ON ROOM AIR WHILE SITTING AT EDGE OF BED. INFORMED NIECE REGARDING CURRENT SITUATION, APOLOGETIC FOR HER UNCLE. CHARGE NURSE PAGED . ASSISTED PATIENT BACK INTO BED, PATIENT AGREED TO NC. SKIN WARM AND DRY TO TOUCH. WILL CONTINUE TO MONITOR.
[2017-04-19] VITALS (8 sets, daily range): BP systolic 104–148; BP diastolic 47–74
[2017-04-19] MEDS ORDERED: methylPREDNISolone SOD SUCC 125 MG/2ML VIAL ONE ×2 (00:04→06:22)
[2017-04-19] MEDS: methylPREDNISolone SOD SUCC 125 MG/2ML VIAL IV SCH ×5 (00:19→23:58)
--- NOTE | 2017-04-19 01:27 | NUR ---
MAHAMED RN NOTES PATIENT REMOVED OXYGEN, PATIENT REFUSING TO PLACE OXYGEN BACK ON, REMOVED TELE BOX, REFUSING TO PUT TELE BOX BACK ON, EXPLAINED TO PATIENT THE NEED FOR OXYGEN AND TELE MONITOR, PATIENT BECAME AGGRESSIVE AND CHARGE NURSE ATTEMPTED TO SPEAK WITH PATIENT, PATIENT COMBATIVE, HITTING STAFF. PAGED DR. CLINTON. WAITING FOR CALL BACK.
--- NOTE | 2017-04-19 02:07 | NUR ---
SECURITY CALLED TO ASSIST WITH PATIENT, PATIENT WITH RESPIRATIONS LABORED, ON ROOM AIR, OFF THE TELE MONITOR. PLACED ON BILATERAL SOFT RESTRAINTS WITH 3 SECURITY GUARDS AND TWO MALE STAFF ASSISTING. SPO2 77% ON ROOM AIR. PLACED ON 8LPMO2 SIMPLE MASK, SPO2 INCREASED TO 95%. SKIN WARM AND DRY TO TOUCH. RESPIRATIONS 36/MIN. NOTED WITH BLEEDING AT CHIN, PER CHARGE NURSE PATIENT ATTEMPTING TO SLIDE DOWN FROM BED AND ATTEMPTING TO REMOVE OXYGEN MASK, METAL PART OF MASK CAUSED SMALL CUT ON CHIN. PATIENT CLEANED UP. DR. GARCES PAGED AGAIN. WAITING FOR CALL BACK. WILL CONTINUE TO MONITOR.
--- NOTE | 2017-04-19 02:26 | NUR ---
RT ATTEMPTED TO DO ABG, PATIENT MOVING ARM TOO MUCH DESPITE HOLDING ARM DOWN. PATIENT WITH BILATERAL SOFT WRIST RESTRAINTS, PATIENT REMOVED OXYGEN. PLACED PATIENT ON 4LPMO2 VIA NC, SPO2 93%, HR 120. SKIN WARM AND DRY TO TOUCH. CHARGE NURSE AWARE. STILL NO CALL FROM DR. GARCES, PER MANAGER HEART CALL DR. SOUSA, DR. SOUSA PAGED BY CHARGE NURSE. WILL CONTINUE TO MONITOR.
--- NOTE | 2017-04-19 02:38 | NUR ---
MAHAMED RN NOTES CALL TO DR. RITCHIE FORWARDED TO DR. ABAD. CHARGE NURSE RECEIVED ORDER FOR HALDOL 1MG IV Q3 HOURS PRN FOR AGITATION. NOTED AND CARRIED OUT. WILL CONTINUE TO MONITOR.
[2017-04-19] MEDS ORDERED: HALOPERIDOL LACTATE INJ 5 MG/ML VIAL IV PRN ×3 (03:00→07:00)
[2017-04-19] MEDS ORDERED: FUROSEMIDE 20 MG/2 ML VIAL IV SCH (06:30)
[2017-04-19] MEDS: BLOOD SUGAR DIAGNOSTIC 1 EACH STRIP IN SCH ×4 (06:35→21:54)
[2017-04-19] MEDS: INSULIN REGULAR, HUMAN 100 UNIT/ML 3 ML VIAL SQ PRN ×4 (06:38→22:02)
[2017-04-19] MEDS ORDERED: FUROSEMIDE 40 MG/4 ML VIAL ONE (06:40)
[2017-04-19 07:06] LABS: HEMATOCRIT 27 % (39-51); HEMOGLOBIN 8.3 g/dL (13.5-17.5); LYMPHOCYTES # (AUTO) 0.2 /CMM (0.8-4.8); LYMPHOCYTES % (AUTO) 4.3 % (20.0-44.0); MEAN CORPUSCULAR HEMOGLOBIN 25 PG (26.0-33.0); MEAN CORPUSCULAR HGB CONC 31 g/dl (31.0-36.0); MEAN CORPUSCULAR VOLUME 79 fL (80-96); MONOCYTES % (AUTO) 0.4 % (2.0-12.0); NEUTROPHILS # (AUTO) 5.5 /CMM (1.8-8.9); NEUTROPHILS % (AUTO) 95.3 % (43.0-81.0); PLATELET COUNT (AUTO) 184 /CMM (150-450); RDW COEFFICIENT OF VARIATION 18.7 (11.5-15.0); RED BLOOD CELL COUNT(AUTO) 3.38 MIL/uL (4.5-6.0); WHITE BLOOD COUNT (AUTO) 5.8 K/uL (4.3-11.0)
--- NOTE | 2017-04-19 07:07 | NUR ---
RN NOTES RECEIVED PATIENT AOX 1 CONFUSED , BURMESE SPEAKING BUT UNDERSTAND A LITTLE BIT OF PORTUGUESE , RE ORIENT TO PLACE DATE AND TIME , NOT IN ACUTE DISTRESS , RESPIRATIONS EVEN AND UNLABORED WITH SPO2 OF 93% VIA 3LPM NC , AFIB 95 ON TELE MONITOR , BILATERAL SOFT WRIST RESTRAINS IN PLACE , VISUAL CHECK PER PROTOCOL , IV OF R HAND # 18 AND LAC # 18 G PATENT AND INTACT SL , ALL NEEDS ATTENDED, BED ON LOW AND LOCKED POSITION , SIDE RAILS X2 ,CALL LIGHT WITHIN REACH . HOB @ 35 , WILL CONTINUE TO MONITOR
[2017-04-19 07:17] LABS: CALCIUM, SERUM 8.7 mg/dL (8.5-10.1); CREATININE 1.5 mg/dL (0.6-1.3); MAGNESIUM 1.9 mg/dL (1.8-2.4); POTASSIUM 4.1 mmol/L (3.5-5.1)
--- NOTE | 2017-04-19 07:30 | NUR ---
MAHAMED RN CLOSING NOTES PATIENT CALM AT THIS TIME. WITH 5LPMO2 VIA NC, SPO2 94%. SKIN WARM AND DRY TO TOUCH. PATIENT MORE COOPERATIVE. WITH BILATERAL SOFT RESTRAINTS FOR PATIENTS SAFETY. AFIB 108 ON MONITOR. BREATHING LABORED. PATIENT AWAKE, PLEASANT, THANKFUL. SIDE RAILS UP AND LOCKED. BED KEPT AT LOWEST POSITION. CALL LIGHT KEPT WITHIN EASY REACH. BED ALARM ON. CONTINUITY OF CARE ENDORSED TO AM NURSE.
[2017-04-19] MEDS: ALBUTEROL FS 2.5 MG/3 ML VIAL.NEB NEB SCH ×5 (07:43→23:30)
[2017-04-19] MEDS: IPRATROPIUM NEB FS 0.5 MG/2.5 ML AMPUL.NEB NEB SCH ×5 (07:43→23:30)
[2017-04-19] MEDS ORDERED: ALBUTEROL FS 2.5 MG/0.5 ML VIAL.NEB NEB PRN (09:30)
[2017-04-19] MEDS ORDERED: IPRATROPIUM NEB FS 0.5 MG/2.5 ML AMPUL.NEB NEB PRN (09:30)
[2017-04-19] MEDS ORDERED: Medication Not On Formulary EA (Cran/Vitc/Mannose/Inulin/Brom (Uti-Stat Liquid) 30 ML) PO SCH (09:30)
[2017-04-19] MEDS ORDERED: ACETAMINOPHEN 325 MG TABLET PO PRN (09:30)
[2017-04-19] MEDS ORDERED: Medication Not On Formulary EA (Levalbuterol Hcl (Xopenex) 0.63 MG) IH SCH (09:30)
[2017-04-19] MEDS ORDERED: BLOOD SUGAR DIAGNOSTIC 1 EACH STRIP IN SCH (09:30)
[2017-04-19] MEDS ORDERED: MAGNESIUM HYDROXIDE 30 ML UDC PO PRN (09:30)
[2017-04-19] MEDS ORDERED: Medication Not On Formulary EA (Cranberry Extract (Cranberry) 425 MG) PO SCH (09:30)
[2017-04-19 09:43] LABS: PHOSPHORUS 3.9 mg/dL (2.5-4.9); THYROID STIMULATING HORMONE 0.944 uIU/mL (0.358-3.74); TROPONIN I 0.022 ng/mL (0.00-0.056)
[2017-04-19] MEDS: DOCUSATE SODIUM 100 MG CAPSULE PO SCH ×2 (11:20→21:54)
[2017-04-19] MEDS: FINASTERIDE (5 MG) 5 MG TABLET PO SCH (11:21)
[2017-04-19] MEDS: DILTIAZEM HCL CD 240 MG PO SCH (11:21)
[2017-04-19] MEDS: ISOSORBIDE MONONITRATE (30MG) 30 MG TAB.SR.24H PO SCH (11:22)
[2017-04-19] MEDS: PROSOURCE / PROSTAT (PYXIS) 30 ML UDC PO SCH (11:22)
[2017-04-19] MEDS: LEVOTHYROXINE SODIUM 50 MCG TABLET PO SCH (11:22)
[2017-04-19] MEDS: CARVEDILOL 6.25 MG TABLET PO SCH ×2 (11:22→21:54)
[2017-04-19] MEDS: CHOLECALCIFEROL 1,000 UNIT TABLET (VIT D3) PO SCH (11:22)
--- NOTE | 2017-04-19 11:23 | NUR ---
WOUND CARE CONSULT: PT PRESENTS WITH DRY ABRASION TO RT CHEEK, RT GROIN REDNESS AND DRY SCRATCH BURGESS ON LEGS, PRESENT ON ADMISSION. ABILITY TO ASSIST WITH TURNING AND REPOSITIONING IN BED. SKIN STAINING NOTED TO SACRAL/BUTTOCKS AREA. PT INCONTINENT OF URINE. ALL SKIN PROTECTION MEASURES IN PLACE AND DISCUSSED WITH NURSING STAFF. MD IN AGREEMENT WITH PLAN OF CARE. Addendum: 04/19/17 at 1125 by MARIA DE JESUS PAL [id number] Amended: Links added.
[2017-04-19] MEDS ORDERED: Z GUARD REMEDY 2 OZ OINT TP PRN (11:30)
[2017-04-19 11:50] LABS: INR 1.99 (0.87-1.13); PROTHROMBIN TIME 22.3 SECS (9.5-12.7)
[2017-04-19] MEDS: Z GUARD REMEDY 2 OZ OINT TP SCH (12:25)
[2017-04-19] MEDS: AGGRENOX(ASA/DIPYRIDAMOLE) 1 CAP CPMP.12HR PO SCH (12:25)
--- NOTE | 2017-04-19 12:30 | NUR ---
RN NOTES PT BS OF 205 INSULIN COVERAGE HELD PT ACCU CHECK WAS DONE @ 1000 BS OF 252 6 UNITS REGULAR INSULIN GIVEN . WILL CONTINUE TO MONITOR
[2017-04-19] MEDS ORDERED: IV SET PRIMARY PUMP SET 1 EA INFUS.SET MC ONE (13:54)
[2017-04-19] MEDS: SOD FERRIC GLUC 125 MG in IV NS 0.9% 100 ML IV SCH (15:15)
[2017-04-19] MEDS: WARFARIN SODIUM 1 MG TABLET PO SCH (16:54)
--- NOTE | 2017-04-19 20:30 | NUR ---
AUTO GLASS INSTALLER NOTES RECEIVED PT ON BI LAT WRIST RESTRAIN, ON NC 5L,SR 77 NO FACIAL GRIMACING NOTED, CLEAN AND DRY ASSESSED BILAT WRIST RESTRAINS AND RELEASED FOR CIRCULATION SKIN INTACT.
--- NOTE | 2017-04-19 20:40 | NUR ---
PHARMACY CALLED REGARDING PT, HALDOL ORDER 1MG IV Q30 MIN, CALLED DR ABAD TO VERIFY, UNABLE TO CONTACT ABLE TO SPEAK WITH DR MC FOR VERIFICATION OF ORDER WITH REQUEST TO F/U WITH WHO EVER CHANGED THE ORDER FROM PREVIOUS ORDER OF HALDOL 1MG IV Q3 HRS. WILL ENDORSE FOR E/U IN AM.
[2017-04-19] MEDS: TAMSULOSIN 0.4 MG CAP.SR.24H PO SCH (21:54)
[2017-04-19] MEDS: SIMVASTATIN 10 MG TABLET PO SCH (21:54)
[2017-04-20] VITALS (7 sets, daily range): BP systolic 124–140; BP diastolic 51–69
[2017-04-20] MEDS: IPRATROPIUM NEB FS 0.5 MG/2.5 ML AMPUL.NEB NEB SCH ×6 (03:32→22:53)
[2017-04-20] MEDS: ALBUTEROL FS 2.5 MG/3 ML VIAL.NEB NEB SCH ×6 (03:32→22:53)
[2017-04-20] MEDS: methylPREDNISolone SOD SUCC 125 MG/2ML VIAL IV SCH ×3 (06:39→17:11)
[2017-04-20] MEDS: LEVOTHYROXINE SODIUM 50 MCG TABLET PO SCH (06:46)
[2017-04-20] MEDS: BLOOD SUGAR DIAGNOSTIC 1 EACH STRIP IN SCH ×4 (06:48→21:03)
[2017-04-20 06:52] LABS: EOSINOPHILS % (AUTO) 0.4 % (0.0-6.0); HEMATOCRIT 27 % (39-51); HEMOGLOBIN 8.5 g/dL (13.5-17.5); INR 2.36 (0.87-1.13); LYMPHOCYTES # (AUTO) 0.6 /CMM (0.8-4.8); LYMPHOCYTES % (AUTO) 6.9 % (20.0-44.0); MEAN CORPUSCULAR HEMOGLOBIN 25 PG (26.0-33.0); MEAN CORPUSCULAR HGB CONC 32 g/dl (31.0-36.0); MEAN CORPUSCULAR VOLUME 79 fL (80-96); MONOCYTES # (AUTO) 0.1 /CMM (0.1-1.30); MONOCYTES % (AUTO) 0.9 % (2.0-12.0); NEUTROPHILS # (AUTO) 8.2 /CMM (1.8-8.9); NEUTROPHILS % (AUTO) 91.8 % (43.0-81.0); PLATELET COUNT (AUTO) 210 /CMM (150-450); PROTHROMBIN TIME 26.7 SECS (9.5-12.7); RDW COEFFICIENT OF VARIATION 18.6 (11.5-15.0); RED BLOOD CELL COUNT(AUTO) 3.44 MIL/uL (4.5-6.0); WHITE BLOOD COUNT (AUTO) 8.9 K/uL (4.3-11.0)
[2017-04-20 06:53] LABS: TROPONIN I 0.024 ng/mL (0.00-0.056)
[2017-04-20 06:55] LABS: ALBUMIN 3.1 g/dL (3.4-5.0); BILIRUBIN,TOTAL 0.5 mg/dL (0.2-1.0); CALCIUM, SERUM 8.4 mg/dL (8.5-10.1); CREATININE 1.4 mg/dL (0.6-1.3); MAGNESIUM 1.9 mg/dL (1.8-2.4); PHOSPHORUS 3.4 mg/dL (2.5-4.9); POTASSIUM 3.9 mmol/L (3.5-5.1); TOTAL PROTEIN, SERUM 6.4 g/dL (6.4-8.2)
--- NOTE | 2017-04-20 07:20 | NUR ---
RN INITIAL NOTES: Rec'd pt awake on bed, A/O x2, not in any distress. Pt on 3lpm/NC, saturating 96%, denies SOB. On telemonitor, Afib w/ HR 84. Pt has LAC G18 SL, patent & intact w/ no signs of infection/ infiltration noted. Pt temporarily removed from B wrist soft restraints, sitter AIRPORT OPERATIONS CREW MEMBER Danyell at bedside, pt seems to cooperate and not combative. Provided comfort & safety measures. Needs attended. Call light placed w/in reach. Bed kept low & in locked position. Will continue to monitor.
[2017-04-20] MEDS: PROSOURCE / PROSTAT (PYXIS) 30 ML UDC PO SCH (08:15)
[2017-04-20] MEDS: DILTIAZEM HCL CD 240 MG PO SCH (08:16)
[2017-04-20] MEDS: CARVEDILOL 6.25 MG TABLET PO SCH ×2 (08:16→20:51)
[2017-04-20] MEDS: FINASTERIDE (5 MG) 5 MG TABLET PO SCH (08:17)
[2017-04-20] MEDS: ISOSORBIDE MONONITRATE (30MG) 30 MG TAB.SR.24H PO SCH (08:17)
[2017-04-20] MEDS: CALCIUM CARB 250MG /VITAMIN D 1 UDTAB PO SCH (08:17)
[2017-04-20] MEDS: CHOLECALCIFEROL 1,000 UNIT TABLET (VIT D3) PO SCH (08:17)
[2017-04-20] MEDS: INSULIN REGULAR, HUMAN 100 UNIT/ML 3 ML VIAL SQ PRN ×4 (08:20→21:03)
[2017-04-20] MEDS: DOCUSATE SODIUM 100 MG CAPSULE PO SCH ×2 (09:05→20:51)
[2017-04-20] MEDS: FUROSEMIDE 100 MG/10 ML VIAL IV SCH ×3 (09:05→17:11)
[2017-04-20] MEDS: AGGRENOX(ASA/DIPYRIDAMOLE) 1 CAP CPMP.12HR PO SCH (09:05)
[2017-04-20] MEDS: Z GUARD REMEDY 2 OZ OINT TP SCH (09:08)
[2017-04-20] MEDS ORDERED: IV NS 0.9% 250 ML IV ONE (15:08)
[2017-04-20] MEDS ORDERED: IV SET PRIMARY PUMP SET 1 EA INFUS.SET MC ONE (15:08)
[2017-04-20] MEDS ORDERED: SECONDARY IV SET 1 EA INFUS.SET MC ONE (15:11)
[2017-04-20] MEDS: SOD FERRIC GLUC 125 MG in IV NS 0.9% 100 ML IV SCH (15:21)
[2017-04-20] MEDS: WARFARIN SODIUM 1 MG TABLET PO SCH (17:12)
--- NOTE | 2017-04-20 19:00 | NUR ---
RN CLOSING NOTES: No acute changes noted w/in shift. Pt on 3lpm/NC, saturating 94%. Pt had episode of agitation but calms down after. Has 1:1 sitter. LAC G18 SL, kept patent & intact w/ no signs of infection/ infiltration noted. Kept well rested. Needs attended. Call light placed w/in reach. Bed kept low & in locked position. Endorsed to PM RN for CELIA.
[2017-04-20] MEDS: SIMVASTATIN 10 MG TABLET PO SCH (21:02)
[2017-04-20] MEDS: TAMSULOSIN 0.4 MG CAP.SR.24H PO SCH (21:02)
[2017-04-21] MEDS: methylPREDNISolone SOD SUCC 125 MG/2ML VIAL IV SCH ×3 (00:16→12:17)
[2017-04-21 00:21] VITALS: BP 117/46
[2017-04-21] MEDS: IPRATROPIUM NEB FS 0.5 MG/2.5 ML AMPUL.NEB NEB SCH ×6 (03:24→23:28)
[2017-04-21] MEDS: ALBUTEROL FS 2.5 MG/3 ML VIAL.NEB NEB SCH ×6 (03:24→23:28)
[2017-04-21 04:00] VITALS: BP 144/72
[2017-04-21] MEDS: BLOOD SUGAR DIAGNOSTIC 1 EACH STRIP IN SCH ×4 (06:25→21:18)
[2017-04-21] MEDS: INSULIN REGULAR, HUMAN 100 UNIT/ML 3 ML VIAL SQ PRN ×3 (06:25→21:40)
--- NOTE | 2017-04-21 07:30 | NUR ---
RN INITIAL NOTES: Rec'd pt awake on bed, A/O x2, not in any distress. Pt on 3lpm/NC, saturating 96%, denies SOB. On telemonitor, Afib w/ HR 84. Pt has LAC G18 SL, patent & intact w/ no signs of infection/ infiltration noted. Pt temporarily removed from B wrist soft restraints, sitter RESEARCH PROFESSOR Danyell at bedside, pt seems to cooperate and not combative. Provided comfort & safety measures. Needs attended. Call light placed w/in reach. Bed kept low & in locked position. Will continue to monitor.
[2017-04-21 08:00] VITALS: BP_SYST 134; BP_SYST 139; BP_DIAS 48
[2017-04-21] MEDS: CHOLECALCIFEROL 1,000 UNIT TABLET (VIT D3) PO SCH (08:35)
[2017-04-21] MEDS: FINASTERIDE (5 MG) 5 MG TABLET PO SCH (08:35)
[2017-04-21] MEDS: AGGRENOX(ASA/DIPYRIDAMOLE) 1 CAP CPMP.12HR PO SCH (08:35)
[2017-04-21] MEDS: DILTIAZEM HCL CD 240 MG PO SCH (08:36)
[2017-04-21] MEDS: CALCIUM CARB 250MG /VITAMIN D 1 UDTAB PO SCH (08:36)
[2017-04-21] MEDS: LEVOTHYROXINE SODIUM 50 MCG TABLET PO SCH (08:36)
[2017-04-21] MEDS: ISOSORBIDE MONONITRATE (30MG) 30 MG TAB.SR.24H PO SCH (08:36)
[2017-04-21] MEDS: CARVEDILOL 6.25 MG TABLET PO SCH ×2 (08:37→21:14)
[2017-04-21] MEDS: PROSOURCE / PROSTAT (PYXIS) 30 ML UDC PO SCH (08:37)
[2017-04-21] MEDS: Z GUARD REMEDY 2 OZ OINT TP SCH (08:37)
[2017-04-21] MEDS: DOCUSATE SODIUM 100 MG CAPSULE PO SCH ×2 (08:37→21:14)
[2017-04-21] MEDS: FUROSEMIDE 100 MG/10 ML VIAL IV SCH ×2 (10:00→13:35)
[2017-04-21 10:38] LABS: EOSINOPHILS % (AUTO) 0.1 % (0.0-6.0); HEMATOCRIT 31 % (39-51); HEMOGLOBIN 9.6 g/dL (13.5-17.5); LYMPHOCYTES # (AUTO) 0.3 /CMM (0.8-4.8); LYMPHOCYTES % (AUTO) 2.8 % (20.0-44.0); MEAN CORPUSCULAR HEMOGLOBIN 24 PG (26.0-33.0); MEAN CORPUSCULAR HGB CONC 31 g/dl (31.0-36.0); MEAN CORPUSCULAR VOLUME 79 fL (80-96); MONOCYTES # (AUTO) 0.4 /CMM (0.1-1.30); MONOCYTES % (AUTO) 4.3 % (2.0-12.0); NEUTROPHILS # (AUTO) 9.2 /CMM (1.8-8.9); NEUTROPHILS % (AUTO) 92.8 % (43.0-81.0); PLATELET COUNT (AUTO) 233 /CMM (150-450); RDW COEFFICIENT OF VARIATION 19.8 (11.5-15.0); RED BLOOD CELL COUNT(AUTO) 3.94 MIL/uL (4.5-6.0); WHITE BLOOD COUNT (AUTO) 9.9 K/uL (4.3-11.0)
[2017-04-21 10:49] LABS: ALBUMIN 3.3 g/dL (3.4-5.0); BILIRUBIN,TOTAL 0.4 mg/dL (0.2-1.0); CALCIUM, SERUM 8.6 mg/dL (8.5-10.1); CREATININE 1.7 mg/dL (0.6-1.3); MAGNESIUM 1.9 mg/dL (1.8-2.4); PHOSPHORUS 3.4 mg/dL (2.5-4.9); TOTAL PROTEIN, SERUM 6.6 g/dL (6.4-8.2)
[2017-04-21 10:56] LABS: POTASSIUM 2.7 mmol/L (3.5-5.1)
[2017-04-21] MEDS ORDERED: POTASSIUM CHLORIDE 20 MEQ TAB.PRT.SR PO ONE (11:30)
[2017-04-21] MEDS ORDERED: POTASSIUM CL. PREMIX PERIPHER. 50 ML IV SCH (13:00)
--- NOTE | 2017-04-21 13:09 | NUR ---
PT. SPIT POTASSIUM PO,WILL REPLACED W/ IV KCL PER .
--- NOTE | 2017-04-21 13:29 | NUR ---
PER DR. MC DC IV KCL SINCE PT. VEIN SENSITIVE,WILL WAIT FOR HIM TO SEE PT. PER MD ORDER.
--- NOTE | 2017-04-21 13:36 | NUR ---
received new order from dr. garcia for 40 meq potassium.pt refused medicine. was notified and asked for alternative routes.dr. garcia does not to use I.V route and stated he,ll attend patient when he is back on floor
[2017-04-21 16:00] VITALS: BP 125/48
[2017-04-21] MEDS: SOD FERRIC GLUC 125 MG in IV NS 0.9% 100 ML IV SCH (16:24)
[2017-04-21] MEDS: WARFARIN SODIUM 1 MG TABLET PO SCH (17:25)
[2017-04-21 18:37] LABS: INR 3.26 (0.87-1.13); PROTHROMBIN TIME 37.6 SECS (9.5-12.7)
--- NOTE | 2017-04-21 19:50 | NUR ---
RN INITIAL NOTES PT IS IN BED, A/OX1, SIERRA LEONEAN SPEAKING, ON NC2LPM TOLERATING IT WELL. DENIES OF PAIN. IV SITES ON RFA, FLUSHED AND PATENT. NO S/SX OF INFILTRATION/INFECTION NOTED. ASSISTED PT WITH ADLS WITH MINIMAL ASSIST. ALL MEDS GIVEN, AND VANIA IT WELL, SIDE RAILS UP, BED LOCKED AND LOWEST POSITION. CALL LIGHT WITHIN REACH. WILL ENDORSE TO AM NURSE FOR CONTINUATION OF CARE.
[2017-04-21 20:00] VITALS: BP 131/69
[2017-04-21] MEDS: TAMSULOSIN 0.4 MG CAP.SR.24H PO SCH (21:13)
[2017-04-21] MEDS: SIMVASTATIN 10 MG TABLET PO SCH (21:14)
[2017-04-22] MEDS: IPRATROPIUM NEB FS 0.5 MG/2.5 ML AMPUL.NEB NEB SCH ×6 (03:30→22:47)
[2017-04-22] MEDS: ALBUTEROL FS 2.5 MG/3 ML VIAL.NEB NEB SCH ×6 (03:31→22:47)
[2017-04-22 04:00] VITALS: BP 140/79
[2017-04-22] MEDS: BLOOD SUGAR DIAGNOSTIC 1 EACH STRIP IN SCH ×4 (06:41→21:46)
[2017-04-22] MEDS: INSULIN REGULAR, HUMAN 100 UNIT/ML 3 ML VIAL SQ PRN ×4 (06:43→21:53)
[2017-04-22 07:43] LABS: EOSINOPHILS # (AUTO) 0.1 /CMM (0.0-0.7); EOSINOPHILS % (AUTO) 0.7 % (0.0-6.0); HEMATOCRIT 32 % (39-51); LYMPHOCYTES # (AUTO) 0.3 /CMM (0.8-4.8); LYMPHOCYTES % (AUTO) 2.9 % (20.0-44.0); MEAN CORPUSCULAR HEMOGLOBIN 25 PG (26.0-33.0); MEAN CORPUSCULAR HGB CONC 31 g/dl (31.0-36.0); MEAN CORPUSCULAR VOLUME 79 fL (80-96); MONOCYTES # (AUTO) 0.4 /CMM (0.1-1.30); MONOCYTES % (AUTO) 4.9 % (2.0-12.0); NEUTROPHILS # (AUTO) 8.1 /CMM (1.8-8.9); NEUTROPHILS % (AUTO) 91.5 % (43.0-81.0); PLATELET COUNT (AUTO) 217 /CMM (150-450); RDW COEFFICIENT OF VARIATION 19.4 (11.5-15.0); RED BLOOD CELL COUNT(AUTO) 4.05 MIL/uL (4.5-6.0); WHITE BLOOD COUNT (AUTO) 8.9 K/uL (4.3-11.0)
[2017-04-22 07:52] LABS: BILIRUBIN,TOTAL 0.5 mg/dL (0.2-1.0); CALCIUM, SERUM 8.8 mg/dL (8.5-10.1); CREATININE 1.4 mg/dL (0.6-1.3); MAGNESIUM 2.1 mg/dL (1.8-2.4); PHOSPHORUS 3.1 mg/dL (2.5-4.9); TOTAL PROTEIN, SERUM 6.2 g/dL (6.4-8.2)
[2017-04-22] MEDS: CARVEDILOL 6.25 MG TABLET PO SCH ×2 (08:35→20:56)
[2017-04-22] MEDS: AGGRENOX(ASA/DIPYRIDAMOLE) 1 CAP CPMP.12HR PO SCH (08:35)
[2017-04-22] MEDS: DOCUSATE SODIUM 100 MG CAPSULE PO SCH ×2 (08:35→08:45)
[2017-04-22] MEDS: CALCIUM CARB 250MG /VITAMIN D 1 UDTAB PO SCH (08:35)
[2017-04-22] MEDS: FINASTERIDE (5 MG) 5 MG TABLET PO SCH (08:36)
[2017-04-22] MEDS: DILTIAZEM HCL CD 240 MG PO SCH (08:36)
[2017-04-22] MEDS: LEVOTHYROXINE SODIUM 50 MCG TABLET PO SCH (08:44)
[2017-04-22] MEDS: ISOSORBIDE MONONITRATE (30MG) 30 MG TAB.SR.24H PO SCH (08:44)
[2017-04-22] MEDS: CHOLECALCIFEROL 1,000 UNIT TABLET (VIT D3) PO SCH (08:45)
[2017-04-22] MEDS: PROSOURCE / PROSTAT (PYXIS) 30 ML UDC PO SCH (08:46)
[2017-04-22] MEDS: Z GUARD REMEDY 2 OZ OINT TP SCH (09:00)
[2017-04-22] MEDS: POTASSIUM CL. PREMIX PERIPHER. 50 ML IV SCH ×7 (11:00→21:47)
[2017-04-22] MEDS: POTASSIUM CHLORIDE 20 MEQ TAB.PRT.SR PO SCH ×5 (11:00→15:50)
[2017-04-22 12:00] VITALS: BP 139/73
[2017-04-22] MEDS: FUROSEMIDE 100 MG/10 ML VIAL IV SCH ×3 (12:49→19:11)
[2017-04-22] MEDS: SOD FERRIC GLUC 125 MG in IV NS 0.9% 100 ML IV SCH (15:33)
--- NOTE | 2017-04-22 16:09 | NUR ---
k =3.0...refusing all po meds...Dr Murdock called...states " you didt have to call me for that"...pharmacy called...states will send up equivalent .
[2017-04-22] MEDS ORDERED: WARFARIN SODIUM 1 MG TABLET PO SCH (17:00)
[2017-04-22 20:00] VITALS: BP 139/73
--- NOTE | 2017-04-22 20:00 | NUR ---
PATIENT IN BED, ALERT AND ORIENTED X3, WITH EPISODES OF COMBATIVENESS AND REFUSING MEDICATIONS, LEFT AC PERIPHERAL LINE IS LEAKING, AM NURSE DISCONTINUED LINE. NEW LINE WILL BE STARTED, FALL PRECAUTION, SITTER AT THE BEDSIDE. CALL LIGHT WITHIN REACH.
[2017-04-22] MEDS: TAMSULOSIN 0.4 MG CAP.SR.24H PO SCH (21:47)
[2017-04-22] MEDS: SIMVASTATIN 10 MG TABLET PO SCH (21:47)
[2017-04-23] VITALS (10 sets, daily range): BP systolic 60–132; BP diastolic 29–82
[2017-04-23] MEDS: ALBUTEROL FS 2.5 MG/3 ML VIAL.NEB NEB SCH ×7 (03:36→23:30)
[2017-04-23] MEDS: IPRATROPIUM NEB FS 0.5 MG/2.5 ML AMPUL.NEB NEB SCH ×7 (03:36→23:30)
--- NOTE | 2017-04-23 06:21 | NUR ---
MS RN NOTES RECEIVED TRANSFER FROM MS1,A/O X1 SLEEPING,AROUSABLE TO VERBAL STIMULI,BREATHING REGULAR,NOT IN ANY FORM OF DISTRESS.NOTED SCRATCHES ON BOTH LOWER EXTREMITIES.WITH SITTER ORDER FOR COMBATIVENESS.WILL CONTINUE TO MONITOR STATUS.WILL ENDORSE TO RANDY BROOKE FOR CELIA.
--- NOTE | 2017-04-23 06:22 | NUR ---
PATIENT IS ALERT AND AWAKE, NO SOB, NO RESPIRATORY DISTRESS, ON 2LPM VIA NC, 02 SAT 95%, WITH EPISODES OF COMBATIVENESS, AND REFUSING MEDICATION. ABLE TO TAKE PM MEDICATIONS WITH LEBANESE COLLECTIVE BARGAINING SPECIALIST, URINE OUTPUT STEADY, GIVEN LASIX DURING AM SHIFT, ALL NEEDS ATTENDED, REPORT GIVEN TO RN DANNY TO ROOM 205-1 MS2.
--- NOTE | 2017-04-23 06:40 | NUR ---
MS RN NOTES CLAIMED HARD TO BREATH,O2 IN USED AT 2-3 LITERS PER NASAL CANNULA. RT AT WAS PAGE TO ADMINISTER BREATHING TX PRN ORDERS.WILL CONTINUE TO MONITOR STATUS.
--- NOTE | 2017-04-23 07:30 | NUR ---
RN MS NOTES PATIENT IN BED, ALERT AND ORIENTED, CALM AND COOPERATIVE, BREATHING TREATMENT GIVEN BY RT, SPO2 > 92%, NO SHORTNESS OF BREATH NOTED, SITTER AT BEDSIDE, SAFETY MEASURES IN PLACED, CALL LIGHT WITHIN REACH, WILL CONTINUE TO MONITOR.
[2017-04-23 07:38] LABS: EOSINOPHILS % (AUTO) 0.3 % (0.0-6.0); HEMATOCRIT 39 % (39-51); HEMOGLOBIN 12.2 g/dL (13.5-17.5); LYMPHOCYTES # (AUTO) 0.6 /CMM (0.8-4.8); LYMPHOCYTES % (AUTO) 5.6 % (20.0-44.0); MEAN CORPUSCULAR HEMOGLOBIN 25 PG (26.0-33.0); MEAN CORPUSCULAR HGB CONC 31 g/dl (31.0-36.0); MEAN CORPUSCULAR VOLUME 79 fL (80-96); MONOCYTES # (AUTO) 0.5 /CMM (0.1-1.30); MONOCYTES % (AUTO) 4.6 % (2.0-12.0); NEUTROPHILS # (AUTO) 9.4 /CMM (1.8-8.9); NEUTROPHILS % (AUTO) 89.5 % (43.0-81.0); PLATELET COUNT (AUTO) 243 /CMM (150-450); RDW COEFFICIENT OF VARIATION 19.9 (11.5-15.0); RED BLOOD CELL COUNT(AUTO) 4.97 MIL/uL (4.5-6.0); WHITE BLOOD COUNT (AUTO) 10.5 K/uL (4.3-11.0)
[2017-04-23] MEDS: BLOOD SUGAR DIAGNOSTIC 1 EACH STRIP IN SCH ×4 (07:55→22:16)
[2017-04-23] MEDS: INSULIN REGULAR, HUMAN 100 UNIT/ML 3 ML VIAL SQ PRN ×4 (07:57→22:15)
[2017-04-23] MEDS: LEVOTHYROXINE SODIUM 50 MCG TABLET PO SCH (07:58)
[2017-04-23 08:03] LABS: ALBUMIN 3.3 g/dL (3.4-5.0); BILIRUBIN,TOTAL 0.8 mg/dL (0.2-1.0); CALCIUM, SERUM 8.8 mg/dL (8.5-10.1); CREATININE 1.7 mg/dL (0.6-1.3); MAGNESIUM 1.7 mg/dL (1.8-2.4); TOTAL PROTEIN, SERUM 6.8 g/dL (6.4-8.2)
[2017-04-23] MEDS: CHOLECALCIFEROL 1,000 UNIT TABLET (VIT D3) PO SCH (08:10)
[2017-04-23] MEDS: DOCUSATE SODIUM 100 MG CAPSULE PO SCH ×2 (08:10→21:00)
[2017-04-23] MEDS: CALCIUM CARB 250MG /VITAMIN D 1 UDTAB PO SCH (08:10)
[2017-04-23] MEDS: FINASTERIDE (5 MG) 5 MG TABLET PO SCH (08:10)
[2017-04-23] MEDS: PROSOURCE / PROSTAT (PYXIS) 30 ML UDC PO SCH (08:10)
[2017-04-23] MEDS: CARVEDILOL 6.25 MG TABLET PO SCH ×2 (08:11→21:00)
[2017-04-23] MEDS: Z GUARD REMEDY 2 OZ OINT TP SCH (08:11)
[2017-04-23] MEDS: DILTIAZEM HCL CD 240 MG PO SCH (08:11)
[2017-04-23] MEDS: ISOSORBIDE MONONITRATE (30MG) 30 MG TAB.SR.24H PO SCH (08:11)
[2017-04-23] MEDS: AGGRENOX(ASA/DIPYRIDAMOLE) 1 CAP CPMP.12HR PO SCH (08:20)
--- NOTE | 2017-04-23 08:30 | NUR ---
RN MS NOTES RECEIVED A CALL FROM LAB, RE: CO2 LEVEL OF 43, PAGED A CALL TO [facility], CARE MANAGEMENT ASSOCIATE MD IS DR. VELOZ. WILL WAIT FOR A CALL BACK.
--- NOTE | 2017-04-23 09:45 | NUR ---
RN MS NOTES RELAYED LAB RESULTS TO DR. CLINTON AND RECEIVED NEW ORDER. PATIENT SEEN THE PATIENT AND HAD A DISCUSSION WITH THE DAUGHTER RE: DISCOLORATION ON BILATERAL HANDS, PER MD, IT IS CAUSED BY BEING ON COUMADIN AND BLOOD DRAWS.
[2017-04-23] MEDS ORDERED: IV SET PRIMARY PUMP SET 1 EA INFUS.SET MC ONE ×3 (09:54→23:25)
[2017-04-23] MEDS ORDERED: IV NS 0.9% 250 ML IV ONE ×2 (09:54→23:25)
[2017-04-23] MEDS ORDERED: SECONDARY IV SET 1 EA INFUS.SET MC ONE ×4 (09:54→23:25)
[2017-04-23] MEDS ORDERED: Magnesium 1GM/D5W 100ML PREMIX 100 ML IV SCH (10:00)
[2017-04-23] MEDS: POTASSIUM CL. PREMIX PERIPHER. 50 ML IV SCH ×8 (10:05→17:45)
[2017-04-23 10:54] LABS: ABG BASE EXCESS 13.3 mmol/L; ABG OXYGEN SATURATION 92.5 % (92.0-98.5); ABG PCO2 50.8 mmHg (35.0-45.0); ABG PH 7.497 (7.350-7.450); ABG PO2 66.5 mmHg (75.0-100.0); AaDO2 102.2 mmHg; COHb 1.7 % (0.5-1.5); MetHb 0.8 % (0.0-1.5); O2Hb 90.2 % (94.0-97.0); SITE, ABG Right Radial; VENT MODE, BG NASAL CANNULA
--- NOTE | 2017-04-23 10:59 | NUR ---
RN MS NOTES ABG RESULT RELAYED TO DR. ACOSTA, NO NEW ORDER AT THIS TIME.
[2017-04-23] MEDS ORDERED: acetaZOLAMIDE SODIUM 500 MG/VIAL VIAL IV ONE (11:30)
[2017-04-23] MEDS: PIPERACILLIN /TAZOBACTAM 3.375 G in IV D5W 50 ML IV SCH ×3 (11:52→23:39)
[2017-04-23] MEDS: SOD FERRIC GLUC 125 MG in IV NS 0.9% 100 ML IV SCH (14:16)
--- NOTE | 2017-04-23 18:30 | NUR ---
RN MS NOTES PATIENT ATE DINNER, COMPLETED K REPLACEMENT X6 DOSES, AND MAG REPLACEMENT X1 DOSE, NO ADVERSE REACTION NOTED, ALL DUE MEDS GIVEN ORDERED, ALL NEEDS ATTENDED, SITTER AT BEDSIDE, CALL LIGHT WITHIN REACH, WILL ENDORSED TO ASSISTANT FINANCE MANAGER FOR CELIA.
--- NOTE | 2017-04-23 20:10 | NUR ---
MS RN NOTES PT LETHARGIC AND PALE. NOTED A CHANGE IN LOC. ACTIVATED CLOTH SHRINKING MACHINE OPERATOR.
[2017-04-23] MEDS ORDERED: IV NS 0.9% 1,000 ML ONE (20:25)
--- NOTE | 2017-04-23 20:30 | NUR ---
MS RN NOTES BP RECHECKED SBP 60/29. 500 ML NS BOLUS GIVEN X 1 PER LINOTYPE MACHINIST APPRENTICE. WILL CONTINUE TO MONITOR.
[2017-04-23 20:44] LABS: ABG BASE EXCESS 9.4 mmol/L; ABG PCO2 48.1 mmHg (35.0-45.0); ABG PH 7.474 (7.350-7.450); ABG PO2 61.3 mmHg (75.0-100.0); AaDO2 81.6 mmHg; SITE, ABG Right Radial; VENT MODE, BG NASAL CANNULA
[2017-04-23] MEDS ORDERED: IV NS 0.9% 1,000 ML BAG IV ONE (20:50)
--- NOTE | 2017-04-23 21:00 | NUR ---
MS RN NOTES CALLED DR CLINTON SHREDDER PICKER FOR DR. GREENE. LEFT A MESSAGE RE PT'S CONDITION. AWAITING FOR CALLBACK. WILL CONTINUE TO MONITOR.
--- NOTE | 2017-04-23 21:11 | NUR ---
RT NOTES: PT IS COMBATIVE AND REFUSED 19:30 HHN TX. AT 21:00 DUE TO SOB, TX GIVEN LATE.
--- NOTE | 2017-04-23 21:30 | NUR ---
MS RN NOTES PAGED DR. CLINTON AGAIN. AWAITING FOR RESPONSE.
--- NOTE | 2017-04-23 21:45 | NUR ---
MS RN NOTES DR. CLINTON CALLED BACK. NOTIFIED RE PT'S CONDITION. PT NOTED WITH A CHANGE IN LOC, LETHARGIC, PALE, WITH LOW BP. GIVEN 500 ML NS OF BOLUS. WITH NEW ORDERS TO UPGRADE TO TELE STATUS. ORDERS NOTED AND CARRIED OUT. WILL CONTINUE TO MONITOR.
--- NOTE | 2017-04-23 22:00 | NUR ---
MS RN NOTES PT TRANSFERRED TO ROOM 304-1. REPORT GIVEN TO KENNETH FOR CONTINUITY OF CARE.
--- NOTE | 2017-04-23 22:10 | NUR ---
PARKER INITIAL NOTES: RECEIVED PT FROM EDWARDO THORNE MS 2ND FLOOR. PT IS AWAKE AND LAYING IN BED. PT HAS 2LPM VIA NC AND IS TOLERATING WELL. PT IS COMBATIVE AND REFUSES TO BE TOUCHED. PT IS A/O X1 AND RWANDAN SPEAKING ONLY. PT IS ON TELE READING A FIB 74. SITTER AT BEDSIDE. BED KEPT IN LOCKED, LOWEST POSITION, AND SIDE RAILS X 2 UP. PT HAS IV ON L FOREARM #22G AND IS PATENT AND INTACT. INITIAL VITAL SIGNS ARE BP 107/54 HR 74, PULSE OX 95%, AND TEMP 97.0. WILL CONTINUE TO MONITOR PT.
[2017-04-23] MEDS: TAMSULOSIN 0.4 MG CAP.SR.24H PO SCH (22:54)
[2017-04-23] MEDS: SIMVASTATIN 10 MG TABLET PO SCH (22:54)
--- NOTE | 2017-04-23 22:56 | NUR ---
NATURAL RESOURCES PROFESSOR NOTES: UPON ADMINISTERING HIS FLOMAX AND ZOCOR, PT REFUSED HIS MEDS BY PUSHING MY HAND AWAY. WILL CONTINUE TO MONITOR PT.
--- NOTE | 2017-04-23 23:54 | NUR ---
FREIGHT BOOKER NOTES: PT IS REFUSING TO BE ASSESSED AND ALSO REFUSING FOR PHOTOS TO BE TAKEN. PT IS COMBATIVE AND WILL HIT OR BRUSH YOU OFF WITH HIS ARM. SITTER AT BEDSIDE.
[2017-04-24 02:00] VITALS: BP 101/57
--- NOTE | 2017-04-24 02:07 | NUR ---
RT NOTES: BREATHING TX NOT GIVEN AT 23:30 DUE TO TIME FRAME. PT REFUSED 19:30 TX, BUT LATER GIVEN @ 21:00 DUE TO SOB.
[2017-04-24] MEDS: ALBUTEROL FS 2.5 MG/3 ML VIAL.NEB NEB SCH ×6 (02:48→22:40)
[2017-04-24] MEDS: IPRATROPIUM NEB FS 0.5 MG/2.5 ML AMPUL.NEB NEB SCH ×6 (02:48→22:40)
[2017-04-24] MEDS: PIPERACILLIN /TAZOBACTAM 3.375 G in IV D5W 50 ML IV SCH ×4 (05:24→23:03)
[2017-04-24 06:00] VITALS: BP 117/60
[2017-04-24] MEDS: BLOOD SUGAR DIAGNOSTIC 1 EACH STRIP IN SCH ×4 (06:02→21:10)
[2017-04-24] MEDS: INSULIN REGULAR, HUMAN 100 UNIT/ML 3 ML VIAL SQ PRN ×2 (06:12→21:16)
--- NOTE | 2017-04-24 06:12 | NUR ---
ASSAULT BOAT [place] NOTES: BLOOD SUGAR WAS 133 AND 2 UNITS WAS GIVEN. WILL CONTINUE TO MONITOR PT.
[2017-04-24 07:00] VITALS: BP 117/60
--- NOTE | 2017-04-24 07:05 | NUR ---
DETASSELER CLOSING NOTES: PT IS IN BED ASLEEP WITH 2LPM VIA NC AND IS TOLERATING WELL. PT IS ON TELE MONITOR AND IS READING A FIB 75. SITTER AT BEDSIDE. CALL LIGHT WITHIN PT'S REACH. BED KEPT IN LOCKED, LOWEST POSITION, AND SIDE RAILS X 2 UP. PT HAS L FOREARM #22G AND IS PATENT AND INTACT. BLOOD SUGAR AT 06:08 WAS 133 AND 2 UNITS WAS GIVEN. PT REFUSED FOR SKIN TO BE ASSESSED AND FOR PHOTOS TO BE TAKEN. ENDORSED TO AM NURSE FOR CELIA.
--- NOTE | 2017-04-24 07:30 | NUR ---
MS EDWARDO RECEIVED ON BED,NON VERBAL PATIENT, NOT IN ANY FORM OF DISTRESS, RESPIRATIONS EVEN AND UNLABORED,NO SOB NOTED, VENT DEPENDENT PATIENT,W/ G TUBE FEEDING OFF AT THIS TIME, REPOSITIONED FOR COMFORT, ALL NEEDS ATTENDED. Addendum: 04/24/17 at 0818 by YUE PIZARRO RN DISREGARD NOTES, WRONG PATIENT.
--- NOTE | 2017-04-24 09:00 | NUR ---
MS RN DUE MEDS GIVEN,TOLERATED WELL. REFUSED BREAKFAST, REFUSING CARE AT THIS TIME.
[2017-04-24] MEDS: DOCUSATE SODIUM 100 MG CAPSULE PO SCH ×2 (09:42→20:32)
[2017-04-24] MEDS: CHOLECALCIFEROL 1,000 UNIT TABLET (VIT D3) PO SCH (09:42)
[2017-04-24] MEDS: CALCIUM CARB 250MG /VITAMIN D 1 UDTAB PO SCH (09:42)
[2017-04-24] MEDS: LEVOTHYROXINE SODIUM 50 MCG TABLET PO SCH (09:42)
[2017-04-24] MEDS: FINASTERIDE (5 MG) 5 MG TABLET PO SCH (09:43)
[2017-04-24] MEDS: PROSOURCE / PROSTAT (PYXIS) 30 ML UDC PO SCH (09:44)
[2017-04-24] MEDS: Z GUARD REMEDY 2 OZ OINT TP SCH (09:47)
[2017-04-24] MEDS: DILTIAZEM HCL CD 240 MG PO SCH (09:48)
[2017-04-24] MEDS: ISOSORBIDE MONONITRATE (30MG) 30 MG TAB.SR.24H PO SCH (09:48)
[2017-04-24] MEDS: CARVEDILOL 6.25 MG TABLET PO SCH ×2 (09:49→20:36)
[2017-04-24 10:34] LABS: BASOPHILS % (AUTO) 0.1 % (0.0-2.0); EOSINOPHILS # (AUTO) 0.1 /CMM (0.0-0.7); EOSINOPHILS % (AUTO) 0.7 % (0.0-6.0); HEMATOCRIT 34 % (39-51); HEMOGLOBIN 10.4 g/dL (13.5-17.5); LYMPHOCYTES # (AUTO) 0.9 /CMM (0.8-4.8); LYMPHOCYTES % (AUTO) 9.8 % (20.0-44.0); MEAN CORPUSCULAR HEMOGLOBIN 25 PG (26.0-33.0); MEAN CORPUSCULAR HGB CONC 31 g/dl (31.0-36.0); MEAN CORPUSCULAR VOLUME 80 fL (80-96); MONOCYTES # (AUTO) 0.5 /CMM (0.1-1.30); MONOCYTES % (AUTO) 5.4 % (2.0-12.0); NEUTROPHILS # (AUTO) 7.3 /CMM (1.8-8.9); PLATELET COUNT (AUTO) 193 /CMM (150-450); RDW COEFFICIENT OF VARIATION 19.4 (11.5-15.0); RED BLOOD CELL COUNT(AUTO) 4.23 MIL/uL (4.5-6.0); WHITE BLOOD COUNT (AUTO) 8.7 K/uL (4.3-11.0)
[2017-04-24 10:47] LABS: TROPONIN I 0.043 ng/mL (0.00-0.056)
[2017-04-24 10:52] LABS: INR 3.68 (0.87-1.13); PROTHROMBIN TIME 42.8 SECS (9.5-12.7)
--- NOTE | 2017-04-24 11:00 | NUR ---
MS RN CALLED FAMILY, WILL COME LATER.
[2017-04-24 11:07] LABS: ALBUMIN 2.6 g/dL (3.4-5.0); BILIRUBIN,TOTAL 0.9 mg/dL (0.2-1.0); CALCIUM, SERUM 8.3 mg/dL (8.5-10.1); CREATININE 1.8 mg/dL (0.6-1.3); MAGNESIUM 2.2 mg/dL (1.8-2.4); PHOSPHORUS 3.3 mg/dL (2.5-4.9); POTASSIUM 3.3 mmol/L (3.5-5.1); TOTAL PROTEIN, SERUM 5.5 g/dL (6.4-8.2)
--- NOTE | 2017-04-24 13:00 | NUR ---
MS RN DAUGHTER AT BEDSIDE, EATING AT THIS TIME.
[2017-04-24] MEDS: acetaZOLAMIDE 250 MG TABLET PO SCH (14:07)
--- NOTE | 2017-04-24 16:00 | NUR ---
MS RN STILL REFUSING CARE, CN AWARE.
[2017-04-24] MEDS: AGGRENOX(ASA/DIPYRIDAMOLE) 1 CAP CPMP.12HR PO SCH (18:13)
--- NOTE | 2017-04-24 18:29 | NUR ---
MS RN ON BED,NO DISTRESS NOTED,ALL NEEDS ATTENDED.
--- NOTE | 2017-04-24 19:20 | NUR ---
MS RN OPENING NOTES: RECEIVED PT IN BED AWAKE AND NONVERBAL. PT IS ON 2LPM VIA NC AND IS TOLERATING WELL. WAS ENDORSED FROM AM NURSE THAT HE WAS COMBATIVE AND REFUSED FOR ACCUCHEK. PT HAS IV ON L FOREARM #22G AND IS PATENT AND INTACT. PT IS HEPLOCK AT THE MOMENT. SITTER AT BEDSIDE. BED IN LOCKED, LOWEST POSITION, AND SIDE RAILS X 2 UP. NO SIGNS OR SYMPTOMS OF DISTRESS AT THIS TIME. WILL CONTINUE TO MONITOR PT.
--- NOTE | 2017-04-24 19:53 | NUR ---
MS RN NOTES: PT IS REFUSING TO HAVE VITAL SIGNS CHECKED. DAUGHTER IS AT BEDSIDE. TRIED WITH DAUGHTER AND HE IS BEING COMBATIVE. WILL GIVE IT SOME TIME AGAIN AND RETRY AT ANOTHER TIME.
--- NOTE | 2017-04-24 20:03 | NUR ---
MS RN NOTES: PT REMOVED NASAL CANNULA. DAUGHTER AT BEDSIDE. ATTEMPTED TO PUT BACK NC ON HIM BUT WAS BEING COMBATIVE AND REFUSED TO HAVE IT PUT BACK ON HIM. WILL RETRY AGAIN AT ANOTHER TIME.
[2017-04-24 20:30] VITALS: BP 99/43
[2017-04-24] MEDS: TAMSULOSIN 0.4 MG CAP.SR.24H PO SCH (21:10)
[2017-04-24] MEDS: SIMVASTATIN 10 MG TABLET PO SCH (21:10)
[2017-04-24] MEDS ORDERED: IV NS 0.9% 250 ML IV ONE (21:18)
--- NOTE | 2017-04-25 00:20 | NUR ---
MS RN NOTES: SITTER AT BEDSIDE AND WAS CALLED TO CHECK ON PT. CHECKED ON PT AND PT REMOVED IV LINE FROM LEFT FOREARM. CHARGE NURSE AWARE.
--- NOTE | 2017-04-25 00:30 | NUR ---
MS RN NOTES: IV WAS STARTED ON L AC #22G AND IS PATENT AND INTACT. APPLIED KERLIX AROUND L AC SITE TO HELP PREVENT PT FROM PULLING OUT IV. SITTER WAS NOTIFIED TO KEEP A SHARP EYE.
[2017-04-25] MEDS: IPRATROPIUM NEB FS 0.5 MG/2.5 ML AMPUL.NEB NEB SCH ×6 (03:30→23:01)
[2017-04-25] MEDS: ALBUTEROL FS 2.5 MG/3 ML VIAL.NEB NEB SCH ×6 (03:30→23:01)
[2017-04-25] MEDS: PIPERACILLIN /TAZOBACTAM 3.375 G in IV D5W 50 ML IV SCH ×2 (05:07→12:12)
[2017-04-25 06:00] VITALS: BP 120/51
[2017-04-25] MEDS: BLOOD SUGAR DIAGNOSTIC 1 EACH STRIP IN SCH ×4 (06:20→21:52)
[2017-04-25] MEDS: INSULIN REGULAR, HUMAN 100 UNIT/ML 3 ML VIAL SQ PRN ×4 (06:31→21:49)
--- NOTE | 2017-04-25 06:31 | NUR ---
BLOOD SUGAR WAS 160 AT 06:22AM. 2 UNITS OF REGULAR INSULIN WAS GIVEN. WILL CONTINUE TO MONITOR PT.
--- NOTE | 2017-04-25 07:15 | NUR ---
MS RN CLOSING NOTES: PT IS IN BED ASLEEP WITH 2LPM VIA NC. PT HAS BEEN LESS COMBATIVE OVERNIGHT. PT ALLOWED FOR PHOTOS OF HIS SKIN TO BE TAKEN. PT ALLOWED FOR US TO CLEAN AND CHANGE HIM. SPOKE WITH DAUGHTER OVER THE PHONE AND NOTIFIED THE UPDATES ABOUT HIM. SITTER AT BEDSIDE. PT KEPT CLEAN, DRY, AND COMFORTABLE. PT HAS IV ON L AC #22G AND IS PATENT AND INTACT. NO SIGNS OR SYMPTOMS OF DISTRESS NOTED AT THIS TIME. ENDORSED TO AM NURSE FOR CELIA.
--- NOTE | 2017-04-25 07:40 | NUR ---
received pt. alert and oriented x1,side rails up.vs stable,sitter present.groggy,but easily arousable.
[2017-04-25 08:00] VITALS: BP 117/63
[2017-04-25] MEDS: LEVOTHYROXINE SODIUM 50 MCG TABLET PO SCH (08:39)
[2017-04-25] MEDS: FINASTERIDE (5 MG) 5 MG TABLET PO SCH (08:43)
[2017-04-25] MEDS: CALCIUM CARB 250MG /VITAMIN D 1 UDTAB PO SCH (08:43)
[2017-04-25] MEDS: DOCUSATE SODIUM 100 MG CAPSULE PO SCH ×2 (08:43→21:52)
[2017-04-25] MEDS: CHOLECALCIFEROL 1,000 UNIT TABLET (VIT D3) PO SCH (08:43)
[2017-04-25] MEDS: AGGRENOX(ASA/DIPYRIDAMOLE) 1 CAP CPMP.12HR PO SCH (08:44)
[2017-04-25] MEDS: PROSOURCE / PROSTAT (PYXIS) 30 ML UDC PO SCH (08:44)
[2017-04-25] MEDS: CARVEDILOL 6.25 MG TABLET PO SCH ×2 (08:44→21:00)
[2017-04-25] MEDS: acetaZOLAMIDE 250 MG TABLET PO SCH (08:44)
[2017-04-25] MEDS: Z GUARD REMEDY 2 OZ OINT TP SCH (08:45)
--- NOTE | 2017-04-25 09:10 | NUR ---
med compliant.pleasant,sob with minimal exertion.o2 mostly on,then pt. removes.family calling to check on pt.
--- NOTE | 2017-04-25 13:01 | NUR ---
no change in status,appetite good.
[2017-04-25 14:12] LABS: CALCIUM, SERUM 8.4 mg/dL (8.5-10.1); CREATININE 1.8 mg/dL (0.6-1.3); POTASSIUM 2.9 mmol/L (3.5-5.1)
[2017-04-25] MEDS ORDERED: POTASSIUM CHLORIDE 10 MEQ TABLET.SA PO ONE (15:00)
[2017-04-25] MEDS: ISOSORBIDE MONONITRATE (30MG) 30 MG TAB.SR.24H PO SCH (15:46)
[2017-04-25] MEDS: DILTIAZEM HCL CD 240 MG PO SCH (15:46)
[2017-04-25 16:00] VITALS: BP_SYST 110; BP_DIAS 50; BP_DIAS 59
--- NOTE | 2017-04-25 18:00 | NUR ---
NO CHANGE IN STATUS.DR. HUBBARD IN EARLIER TO SEE PT.
--- NOTE | 2017-04-25 19:30 | NUR ---
RN OPEN NOTES RECEIVED PATIENT AWAKE IN BED. A/OX1. NO SIGNS OF DISTRESS OR DISCOMFORT. BREATHING EVEN AND UNLABORED. IV ACCESS IN LAC PATENT AND INTACT, NO SIGNS OF REDNESS OR INFILTRATION. SITTER AT BEDSIDE. BED IN LOW LOCKED POSITION WITH SIDE RAILS X3. CALL LIGHT WITHIN REACH. WILL CONTINUE TO MONITOR.
[2017-04-25 20:00] VITALS: BP 97/47
[2017-04-25] MEDS: SIMVASTATIN 10 MG TABLET PO SCH (21:52)
[2017-04-25] MEDS: TAMSULOSIN 0.4 MG CAP.SR.24H PO SCH (21:52)
--- NOTE | 2017-04-25 22:32 | NUR ---
L/R HAND Addendum: 04/25/17 at 2233 by KB VARGAS RN Amended: Links added.
--- NOTE | 2017-04-25 22:33 | NUR ---
RIGHT ARM Addendum: 04/25/17 at 2233 by KB VARGAS RN Amended: Links added.
--- NOTE | 2017-04-25 22:33 | NUR ---
LEFT ARM Addendum: 04/25/17 at 2233 by KB VARGAS RN Amended: Links added.
[2017-04-26] MEDS: ALBUTEROL FS 2.5 MG/3 ML VIAL.NEB NEB SCH ×3 (03:30→11:30)
[2017-04-26] MEDS: IPRATROPIUM NEB FS 0.5 MG/2.5 ML AMPUL.NEB NEB SCH ×3 (03:30→11:30)
[2017-04-26] MEDS: BLOOD SUGAR DIAGNOSTIC 1 EACH STRIP IN SCH ×2 (06:32→12:00)
[2017-04-26] MEDS: INSULIN REGULAR, HUMAN 100 UNIT/ML 3 ML VIAL SQ PRN (06:33)
--- NOTE | 2017-04-26 07:36 | NUR ---
RN CLOSING NOTES PATIENT RESTING IN BED WITH SITTER AT BEDSIDE. A/OX1. NO SIGNS OF DISTRESS OR DISCOMFORT. BREATHING EVEN AND UNLABORED. IV ACCESS IN LAC PATENT AND INTACT, NO SIGNS OF REDNESS OR INFILTRATION. NO SIGNIFICANT CHANGES THROUGH THE NIGHT. ALL NEEDS MET. BED IN LOW LOCKED POSITION WITH SIDE RAILS X3. CALL LIGHT WITHIN REACH. ENDORSED TO AM SHIFT FOR CELIA.
--- NOTE | 2017-04-26 07:40 | NUR ---
RECEIVED PT. ALERT AND ORIENTED X1,ETHIOPIAN SPEAKING,SIDE RAILS UP. HAS 1:1 SITTER.
[2017-04-26 07:47] LABS: BASOPHILS % (AUTO) 0.1 % (0.0-2.0); EOSINOPHILS # (AUTO) 0.3 /CMM (0.0-0.7); EOSINOPHILS % (AUTO) 2.4 % (0.0-6.0); HEMATOCRIT 34 % (39-51); HEMOGLOBIN 10.8 g/dL (13.5-17.5); LYMPHOCYTES # (AUTO) 0.8 /CMM (0.8-4.8); LYMPHOCYTES % (AUTO) 6.7 % (20.0-44.0); MEAN CORPUSCULAR HEMOGLOBIN 26 PG (26.0-33.0); MEAN CORPUSCULAR HGB CONC 32 g/dl (31.0-36.0); MEAN CORPUSCULAR VOLUME 81 fL (80-96); MONOCYTES # (AUTO) 0.7 /CMM (0.1-1.30); MONOCYTES % (AUTO) 5.4 % (2.0-12.0); NEUTROPHILS # (AUTO) 10.2 /CMM (1.8-8.9); NEUTROPHILS % (AUTO) 85.4 % (43.0-81.0); PLATELET COUNT (AUTO) 202 /CMM (150-450); RDW COEFFICIENT OF VARIATION 22.3 (11.5-15.0); RED BLOOD CELL COUNT(AUTO) 4.24 MIL/uL (4.5-6.0)
[2017-04-26 07:57] LABS: INR 1.93 (0.87-1.13); PROTHROMBIN TIME 21.5 SECS (9.5-12.7)
[2017-04-26 08:00] VITALS: BP 125/74
[2017-04-26 08:01] LABS: CARBON DIOXIDE 32 mmol/L (21-32); CHLORIDE 104 mmol/L (98-107); CREATININE 1.7 mg/dL (0.6-1.3); GLUCOSE 169 mg/dL (74-106); MAGNESIUM 2.2 mg/dL (1.8-2.4); PHOSPHORUS 2.8 mg/dL (2.5-4.9); POTASSIUM 3.4 mmol/L (3.5-5.1); SODIUM SERUM 143 mmol/L (136-145); UREA NITROGEN, BLOOD 45 mg/dL (7-18)
--- NOTE | 2017-04-26 08:45 | NUR ---
DTR. IN TO VISIT.
[2017-04-26 08:56] LABS: ABG BASE EXCESS 4.6 mmol/L; ABG OXYGEN SATURATION 93.8 % (92.0-98.5); ABG PCO2 38.3 mmHg (35.0-45.0); ABG PH 7.485 (7.350-7.450); ABG PO2 69.6 mmHg (75.0-100.0); AaDO2 34.3 mmHg; MetHb 0.6 % (0.0-1.5); O2Hb 91.4 % (94.0-97.0); SITE, ABG Right Radial; VENT MODE, BG ROOM AIR
[2017-04-26] MEDS: PROSOURCE / PROSTAT (PYXIS) 30 ML UDC PO SCH (08:56)
[2017-04-26] MEDS: FINASTERIDE (5 MG) 5 MG TABLET PO SCH (08:57)
[2017-04-26] MEDS: CALCIUM CARB 250MG /VITAMIN D 1 UDTAB PO SCH (08:57)
[2017-04-26] MEDS: CHOLECALCIFEROL 1,000 UNIT TABLET (VIT D3) PO SCH (08:57)
[2017-04-26] MEDS: DOCUSATE SODIUM 100 MG CAPSULE PO SCH (08:58)
[2017-04-26] MEDS: CARVEDILOL 6.25 MG TABLET PO SCH (08:58)
[2017-04-26] MEDS: LEVOTHYROXINE SODIUM 50 MCG TABLET PO SCH (08:58)
[2017-04-26] MEDS: ISOSORBIDE MONONITRATE (30MG) 30 MG TAB.SR.24H PO SCH (09:04)
[2017-04-26] MEDS: AGGRENOX(ASA/DIPYRIDAMOLE) 1 CAP CPMP.12HR PO SCH (09:05)
--- NOTE | 2017-04-26 09:30 | NUR ---
DTR. SPEAKING TO DR. MC-AWARE OF DC TODAY.
[2017-04-26] MEDS ORDERED: POTASSIUM CHLORIDE 20 MEQ TAB.PRT.SR PO SCH (10:00)
[2017-04-26] MEDS: Z GUARD REMEDY 2 OZ OINT TP SCH (10:45)
--- NOTE | 2017-04-26 11:30 | NUR ---
pt. refusing discharge photos,kicking and hitting staff.
[2017-04-26 13:30] VITALS: BP 109/52
[2017-04-26] MEDS: DILTIAZEM HCL CD 240 MG PO SCH (13:30)
--- NOTE | 2017-04-26 13:35 | NUR ---
AMBULANCE HERE.REPORT TO [employer].HEP LOCK OUT.BANDAGE TO SITE.ALL PAPERS SIGNED INCLUDING BELONGING SHEET.REPORT CALLED TO FACILITY.TAKEN VIA AMBULANCE TO FACILITY. DTR. CALLED AND AWARE OF DISCHARGE TIME.
== END 2017-04-26 13:35 | DRG 291 ==
LOC: ER 17:17 → TELE-TD 20:05 → TELE1 04-19 09:13 → MEDSG1 04-21 12:34 → MEDSG2 04-23 05:55 → TELE 04-23 22:21 → MED 04-24 11:28
PROVIDERS: ADMIT Internal Medicine; ATTEND Surgery
DX: I13.0 Hypertensive heart and chronic kidney disease with heart failure and stage 1 through stage 4 chronic kidney disease, or unspecified chronic kidney disease (principal); I50.33 Acute on chronic diastolic (congestive) heart failure; N17.0 Acute kidney failure with tubular necrosis; J44.1 Chronic obstructive pulmonary disease with (acute) exacerbation; I50.1 Left ventricular failure, unspecified; N18.4 Chronic kidney disease, stage 4 (severe); N39.0 Urinary tract infection, site not specified; J44.0 Chronic obstructive pulmonary disease with (acute) lower respiratory infection; J98.11 Atelectasis; E87.3 Alkalosis; I48.91 Unspecified atrial fibrillation; E11.22 Type 2 diabetes mellitus with diabetic chronic kidney disease; I50.9 Heart failure, unspecified; E87.6 Hypokalemia; Z86.73 Personal history of transient ischemic attack (TIA), and cerebral infarction without residual deficits; Z79.01 Long term (current) use of anticoagulants; Z95.1 Presence of aortocoronary bypass graft; Z79.899 Other long term (current) drug therapy; M47.814 Spondylosis without myelopathy or radiculopathy, thoracic region; E03.9 Hypothyroidism, unspecified; E78.5 Hyperlipidemia, unspecified; F03.90 Unspecified dementia, unspecified severity, without behavioral disturbance, psychotic disturbance, mood disturbance, and anxiety; I25.10 Atherosclerotic heart disease of native coronary artery without angina pectoris; J98.01 Acute bronchospasm; K21.9 Gastro-esophageal reflux disease without esophagitis; K40.20 Bilateral inguinal hernia, without obstruction or gangrene, not specified as recurrent; K57.30 Diverticulosis of large intestine without perforation or abscess without bleeding; K80.20 Calculus of gallbladder without cholecystitis without obstruction; R41.82 Altered mental status, unspecified; E83.51 Hypocalcemia; D64.9 Anemia, unspecified; N40.0 Benign prostatic hyperplasia without lower urinary tract symptoms
CPT/HCPCS: 36415; 36600; 71010-TC; 80048-TC; 80053-TC; 80061-TC; 80076-TC; 82306; 82728-TC; 82803-TC; 82962-TC; 83540-TC; 83605-TC; 83735-TC; 83880; 84100-TC; 84439-TC; 84443-TC; 84484-TC; 85025-TC; 85610-TC; 85730-TC; 87040-TC; 87081-TC; 93307-TC; 94762-TC; 94799-TC; A4606; J1120; J1815; J1940; J2543; J2916; J2930; J3475; J3480; J7030; J7050; J7060; Z7610

== ENCOUNTER 2017-10-17 08:59 | Inpatient (IN) | payer MEDICARE, MEDICAID ==
[~2017-10-17] VITALS: Ht 162.6 cm; Wt 70.3 kg
[~2017-10-17 08:59] MED LIST changes: +FERR-58 PO; +WARF3TAB29 PO
[2017-10-17] MEDS ORDERED: Magnesium 1GM/D5W 100ML PREMIX 200 ML IV ONE ×2 (09:04→09:10)
[2017-10-17] MEDS ORDERED: methylPREDNISolone SOD SUCC 125 MG/2ML VIAL ONE (09:09)
[2017-10-17 09:30] LABS: BASOPHILS % (AUTO) 0.3 % (0.0-2.0); EOSINOPHILS # (AUTO) 0.1 /CMM (0.0-0.7); EOSINOPHILS % (AUTO) 1.4 % (0.0-6.0); HEMATOCRIT 29 % (39-51); HEMOGLOBIN 8.8 g/dL (13.5-17.5); LYMPHOCYTES # (AUTO) 0.7 /CMM (0.8-4.8); LYMPHOCYTES % (AUTO) 9.4 % (20.0-44.0); MEAN CORPUSCULAR HEMOGLOBIN 23 PG (26.0-33.0); MEAN CORPUSCULAR HGB CONC 30 g/dl (31.0-36.0); MEAN CORPUSCULAR VOLUME 75 fL (80-96); MONOCYTES # (AUTO) 0.9 /CMM (0.1-1.30); NEUTROPHILS # (AUTO) 6.2 /CMM (1.8-8.9); NEUTROPHILS % (AUTO) 77.9 % (43.0-81.0); PLATELET COUNT (AUTO) 200 /CMM (150-450); RDW COEFFICIENT OF VARIATION 18.7 (11.5-15.0); RED BLOOD CELL COUNT(AUTO) 3.83 MIL/uL (4.5-6.0); WHITE BLOOD COUNT (AUTO) 7.9 K/uL (4.3-11.0)
[2017-10-17] MEDS ORDERED: methylPREDNISolone SOD SUCC 125 MG/2ML VIAL IV ONE (09:30)
[2017-10-17] MEDS ORDERED: FUROSEMIDE 40 MG/4 ML VIAL IV ONE (09:30)
[2017-10-17] MEDS ORDERED: FUROSEMIDE 40 MG/4 ML VIAL ONE (09:30)
[2017-10-17] MEDS ORDERED: ALBUTEROL FS 2.5 MG/3 ML VIAL.NEB NEB ONE (09:30)
[2017-10-17] MEDS ORDERED: LEVALBUTEROL HCL NEB 1.25 MG/0.5 ML VIAL.NEB NEB SCH (09:30)
[2017-10-17] MEDS ORDERED: IPRATROPIUM NEB FS 0.5 MG/2.5 ML AMPUL.NEB NEB ONE (09:30)
[2017-10-17 09:33] LABS: ABG OXYGEN SATURATION 92.2 % (92.0-98.5); ABG PCO2 45.7 mmHg (35.0-45.0); ABG PO2 65.6 mmHg (75.0-100.0); AaDO2 109.1 mmHg; COHb 1.1 % (0.5-1.5); MetHb 0.5 % (0.0-1.5); O2Hb 90.7 % (94.0-97.0); SITE, ABG Right Radial; VENT MODE, BG NASAL CANNULA
[2017-10-17] MEDS ORDERED: IPRATROPIUM NEB FS 0.5 MG/2.5 ML AMPUL.NEB ONE (09:36)
[2017-10-17 09:40] LABS: CALCIUM, SERUM 9.8 mg/dL (8.5-10.1); CARBON DIOXIDE 36 mmol/L (21-32); CHLORIDE 105 mmol/L (98-107); CREATININE 1.6 mg/dL (0.6-1.3); GLUCOSE 118 mg/dL (74-106); POTASSIUM 3.2 mmol/L (3.5-5.1); SODIUM SERUM 145 mmol/L (136-145); UREA NITROGEN, BLOOD 38 mg/dL (7-18)
[2017-10-17 09:52] LABS: ALANINE AMINOTRANSFERASE 18 U/L (12-78); ALBUMIN 3.1 g/dL (3.4-5.0); ALKALINE PHOSPHATASE 51 U/L (46-116); ASPARTATE AMINOTRANSFERASE 12 U/L (15-37); B-TYPE NATRIURETIC PEPTIDE 7014 PG/ML (0-125); BILIRUBIN,DIRECT 0.2 mg/dL (0.0-0.2); BILIRUBIN,TOTAL 0.5 mg/dL (0.2-1.0); TOTAL PROTEIN, SERUM 6.5 g/dL (6.4-8.2)
[2017-10-17 09:54] LABS: TROPONIN I 0.464 ng/mL (0.00-0.056)
[2017-10-17] MEDS ORDERED: LEVOFLOXACIN 750 MG /D5W 150ML 150 ML IV ONE ×2 (10:30→10:55)
[2017-10-17] MEDS ORDERED: PIPERACILLIN /TAZOBACTAM 3.375 G in IV D5W 50 ML IV ONE (10:30)
[2017-10-17] MEDS ORDERED: IPRA3AMP IH (10:50)
[2017-10-17] MEDS ORDERED: MIRT15TA7 PO (10:50)
[2017-10-17] MEDS ORDERED: ASCO500T9 PO (10:50)
[2017-10-17] MEDS ORDERED: POTA8TAB3 PO (10:50)
[2017-10-17] MEDS ORDERED: DILT120T2 PO (10:50)
[2017-10-17] MEDS ORDERED: ONDA4TAB5 PO (10:50)
[2017-10-17] MEDS ORDERED: MELA3TAB PO (10:50)
[2017-10-17] MEDS ORDERED: ATOR10TA PO (10:50)
[2017-10-17] MEDS ORDERED: INSU100I14 SQ (10:50)
[2017-10-17] MEDS ORDERED: HYDR12.5 PO (10:50)
[2017-10-17 12:00] VITALS: BP 113/71
[2017-10-17] MEDS ORDERED: MAGNESIUM HYDROXIDE 30 ML UDC PO PRN (12:30)
[2017-10-17] MEDS ORDERED: Medication Not On Formulary EA (Ipratropium/Albuterol Sulfate (Duoneb 2.5-0.5 Mg/3 Ml So IH PRN (12:30)
[2017-10-17] MEDS ORDERED: ACETAMINOPHEN 325 MG TABLET PO PRN (12:30)
[2017-10-17] MEDS: POTASSIUM CHLORIDE 20 MEQ TAB.PRT.SR PO SCH ×2 (13:00→14:29)
[2017-10-17] MEDS: CHOLECALCIFEROL 1,000 UNIT TABLET (VIT D3) PO SCH ×2 (13:30→14:30)
[2017-10-17] MEDS ORDERED: ONDANSETRON 4 MG TAB.RAPDIS PO PRN (13:30)
[2017-10-17] MEDS: CARVEDILOL 6.25 MG TABLET PO SCH ×3 (13:30→20:39)
[2017-10-17] MEDS: LEVOTHYROXINE SODIUM 50 MCG TABLET PO SCH ×2 (13:30→14:31)
[2017-10-17] MEDS: DILTIAZEM HCL CD 120 MG PO SCH ×2 (13:30→14:30)
[2017-10-17] MEDS ORDERED: ALBUTEROL FS 2.5 MG/0.5 ML VIAL.NEB NEB PRN (13:30)
[2017-10-17] MEDS: ISOSORBIDE MONONITRATE (30MG) 30 MG TAB.SR.24H PO SCH ×2 (13:30→14:38)
[2017-10-17 13:37] LABS: MAGNESIUM 2.3 mg/dL (1.8-2.4); PHOSPHORUS 3.1 mg/dL (2.5-4.9)
[2017-10-17 13:45] LABS: TROPONIN I 0.44 ng/mL (0.00-0.056)
[2017-10-17 13:50] LABS: THYROID STIMULATING HORMONE 2.36 uIU/mL (0.358-3.74)
[2017-10-17] MEDS: AGGRENOX(ASA/DIPYRIDAMOLE) 1 CAP CPMP.12HR PO SCH (14:00)
[2017-10-17] MEDS: FUROSEMIDE 40 MG/4 ML VIAL IV SCH ×2 (14:29→18:12)
[2017-10-17] MEDS: methylPREDNISolone SOD SUCC 125 MG/2ML VIAL IV SCH ×2 (14:30→18:11)
[2017-10-17] MEDS: ALBUTEROL FS 2.5 MG/0.5 ML VIAL.NEB NEB SCH ×2 (14:51→20:49)
[2017-10-17] MEDS ORDERED: LEVALBUTEROL HCL NEB 1.25 MG/0.5 ML VIAL.NEB IH SCH (15:30)
[2017-10-17 16:00] VITALS: BP 154/57
[2017-10-17] MEDS ORDERED: DEXTROSE 50%-WATER 50 ML DISP.SYRIN IV PRN (16:30)
[2017-10-17] MEDS: DOCUSATE SODIUM 100 MG CAPSULE PO SCH (17:00)
[2017-10-17] MEDS ORDERED: BLOOD SUGAR DIAGNOSTIC 1 EACH STRIP IN SCH (17:30)
[2017-10-17] MEDS ORDERED: HALOPERIDOL LACTATE INJ 5 MG/ML VIAL IV PRN (18:00)
[2017-10-17] MEDS: CEFEPIME 1 GM in IV D5W 50 ML IV SCH (18:07)
[2017-10-17] MEDS: BLOOD SUGAR DIAGNOSTIC 1 EACH STRIP VI SCH ×2 (18:17→21:18)
[2017-10-17] MEDS: POTASSIUM CL. PREMIX PERIPHER. 50 ML IV SCH ×6 (19:46→23:00)
[2017-10-17 20:00] VITALS: BP 164/72
[2017-10-17] MEDS: TAMSULOSIN 0.4 MG CAP.SR.24H PO SCH (21:15)
[2017-10-17] MEDS: ATORVASTATIN 10 MG TABLET PO SCH (21:15)
[2017-10-17] MEDS: MIRTAZAPINE 15 MG TABLET PO SCH (21:15)
[2017-10-17] MEDS: *INSULIN REGULAR(HUMULIN R)HUM 100 UNIT/ML VIAL SQ PRN (21:50)
[2017-10-17] MEDS ORDERED: Medication Not On Formulary EA (Melatonin 3 MG) PO SCH (22:00)
[2017-10-17 22:56] LABS: APPEARANCE,URINE CLEAR (CLEAR); BILIRUBIN,URINE NEGATIVE (NEGATIVE); BLOOD, URINE NEGATIVE Ery/uL (NEGATIVE); COLOR,URINE YELLOW (YELLOW); KETONES,URINE NEGATIVE (NEGATIVE); LEUKOCYTE ESTERASE ,URINE NEGATIVE (NEGATIVE); NITRITE, URINE NEGATIVE (NEGATIVE); PH,URINE 5.5 (5.0-8.0); PROTEIN,URINE NEGATIVE (NEGATIVE); UGLUCOSE NEGATIVE (NEGATIVE); UROBILINOGEN,URINE 0.2 EU/dL (0.2)
[2017-10-18] VITALS: BP 157/59
[2017-10-18] MEDS: ALBUTEROL FS 2.5 MG/0.5 ML VIAL.NEB NEB SCH ×4 (02:43→19:30)
[2017-10-18 04:00] VITALS: BP 140/69
[2017-10-18] MEDS: CEFEPIME 1 GM in IV D5W 50 ML IV SCH ×2 (05:02→16:43)
[2017-10-18 06:40] LABS: HEMATOCRIT 29 % (39-51); LYMPHOCYTES # (AUTO) 0.3 /CMM (0.8-4.8); LYMPHOCYTES % (AUTO) 6.4 % (20.0-44.0); MEAN CORPUSCULAR HEMOGLOBIN 23 PG (26.0-33.0); MEAN CORPUSCULAR HGB CONC 31 g/dl (31.0-36.0); MEAN CORPUSCULAR VOLUME 75 fL (80-96); MONOCYTES # (AUTO) 0.1 /CMM (0.1-1.30); MONOCYTES % (AUTO) 1.7 % (2.0-12.0); NEUTROPHILS # (AUTO) 4.1 /CMM (1.8-8.9); NEUTROPHILS % (AUTO) 91.9 % (43.0-81.0); PLATELET COUNT (AUTO) 187 /CMM (150-450); RDW COEFFICIENT OF VARIATION 19.1 (11.5-15.0); RED BLOOD CELL COUNT(AUTO) 3.87 MIL/uL (4.5-6.0); WHITE BLOOD COUNT (AUTO) 4.5 K/uL (4.3-11.0)
[2017-10-18 06:57] LABS: INR 2.23 (0.87-1.13); PROTHROMBIN TIME 23.4 SECS (9.5-12.7)
[2017-10-18 07:06] LABS: ALANINE AMINOTRANSFERASE 15 U/L (12-78); ALBUMIN 3.1 g/dL (3.4-5.0); ALKALINE PHOSPHATASE 46 U/L (46-116); ASPARTATE AMINOTRANSFERASE 12 U/L (15-37); BILIRUBIN,TOTAL 0.6 mg/dL (0.2-1.0); CALCIUM, SERUM 9.1 mg/dL (8.5-10.1); CARBON DIOXIDE 34 mmol/L (21-32); CHLORIDE 100 mmol/L (98-107); CREATININE 1.7 mg/dL (0.6-1.3); MAGNESIUM 1.8 mg/dL (1.8-2.4); PHOSPHORUS 4.3 mg/dL (2.5-4.9); POTASSIUM 3.3 mmol/L (3.5-5.1); SODIUM SERUM 143 mmol/L (136-145); TOTAL PROTEIN, SERUM 6.6 g/dL (6.4-8.2); UREA NITROGEN, BLOOD 40 mg/dL (7-18)
[2017-10-18 07:30] LABS: GLUCOSE 360 mg/dL (74-106)
[2017-10-18 07:44] LABS: TROPONIN I 0.418 ng/mL (0.00-0.056)
[2017-10-18 08:00] VITALS: BP_SYST 136; BP_SYST 160; BP_DIAS 76; BP_DIAS 80
[2017-10-18] MEDS: IPRATROPIUM NEB FS 0.5 MG/2.5 ML AMPUL.NEB NEB PRN ×2 (08:02→14:13)
[2017-10-18] MEDS: ISOSORBIDE MONONITRATE (30MG) 30 MG TAB.SR.24H PO SCH (08:02)
[2017-10-18] MEDS: AGGRENOX(ASA/DIPYRIDAMOLE) 1 CAP CPMP.12HR PO SCH (08:02)
[2017-10-18] MEDS: LEVOTHYROXINE SODIUM 50 MCG TABLET PO SCH (08:02)
[2017-10-18] MEDS: BLOOD SUGAR DIAGNOSTIC 1 EACH STRIP VI SCH ×4 (08:02→23:36)
[2017-10-18] MEDS: DOCUSATE SODIUM 100 MG CAPSULE PO SCH ×2 (08:03→16:42)
[2017-10-18] MEDS: DILTIAZEM HCL CD 120 MG PO SCH ×2 (08:03→09:00)
[2017-10-18] MEDS: CHOLECALCIFEROL 1,000 UNIT TABLET (VIT D3) PO SCH (08:03)
[2017-10-18] MEDS: CARVEDILOL 6.25 MG TABLET PO SCH ×2 (08:03→23:37)
[2017-10-18] MEDS: methylPREDNISolone SOD SUCC 125 MG/2ML VIAL IV SCH ×4 (08:04→23:28)
[2017-10-18] MEDS: ASCORBIC ACID 500 MG TABLET PO SCH (08:05)
[2017-10-18] MEDS: FINASTERIDE (5 MG) 5 MG TABLET PO SCH (08:05)
[2017-10-18] MEDS: INSULIN REGULAR, HUMAN 100 UNIT/ML 3 ML VIAL SQ PRN ×3 (08:08→16:46)
[2017-10-18] MEDS: POTASSIUM CHLORIDE 20 MEQ TAB.PRT.SR PO SCH ×3 (09:00→11:36)
[2017-10-18] MEDS: acetaZOLAMIDE SODIUM 500 MG/VIAL VIAL IV SCH ×2 (10:28→16:42)
[2017-10-18 16:00] VITALS: BP 101/35
[2017-10-18] MEDS: INSULIN DETEMIR 100 UNIT/ML CARTRIDGE SQ SCH (22:00)
[2017-10-18] MEDS: ATORVASTATIN 10 MG TABLET PO SCH (23:37)
[2017-10-18] MEDS: TAMSULOSIN 0.4 MG CAP.SR.24H PO SCH (23:37)
[2017-10-18] MEDS: MIRTAZAPINE 15 MG TABLET PO SCH (23:37)
[2017-10-19] VITALS: BP 140/76
[2017-10-19] MEDS: ALBUTEROL FS 2.5 MG/0.5 ML VIAL.NEB NEB SCH ×4 (01:16→19:30)
[2017-10-19] MEDS ORDERED: HALOPERIDOL LACTATE INJ 5 MG/ML VIAL IM PRN (02:00)
[2017-10-19 04:00] VITALS: BP 122/62
[2017-10-19] MEDS: CEFEPIME 1 GM in IV D5W 50 ML IV SCH ×2 (04:30→17:51)
[2017-10-19 06:34] LABS: HEMATOCRIT 30 % (39-51); HEMOGLOBIN 9.2 g/dL (13.5-17.5); MEAN CORPUSCULAR HEMOGLOBIN 23 PG (26.0-33.0); MEAN CORPUSCULAR HGB CONC 31 g/dl (31.0-36.0); MEAN CORPUSCULAR VOLUME 75 fL (80-96); PLATELET COUNT (AUTO) 184 /CMM (150-450); RDW COEFFICIENT OF VARIATION 19.9 (11.5-15.0); RED BLOOD CELL COUNT(AUTO) 3.94 MIL/uL (4.5-6.0); WHITE BLOOD COUNT (AUTO) 13.7 K/uL (4.3-11.0)
[2017-10-19 06:58] LABS: ALANINE AMINOTRANSFERASE 16 U/L (12-78); ALBUMIN 2.9 g/dL (3.4-5.0); ALKALINE PHOSPHATASE 41 U/L (46-116); ASPARTATE AMINOTRANSFERASE 12 U/L (15-37); BILIRUBIN,TOTAL 0.6 mg/dL (0.2-1.0); CALCIUM, SERUM 9.2 mg/dL (8.5-10.1); CARBON DIOXIDE 34 mmol/L (21-32); CHLORIDE 104 mmol/L (98-107); CREATININE 1.8 mg/dL (0.6-1.3); GLUCOSE 286 mg/dL (74-106); MAGNESIUM 2.2 mg/dL (1.8-2.4); POTASSIUM 3.4 mmol/L (3.5-5.1); SODIUM SERUM 143 mmol/L (136-145); TOTAL PROTEIN, SERUM 6.2 g/dL (6.4-8.2); UREA NITROGEN, BLOOD 58 mg/dL (7-18)
[2017-10-19 07:01] LABS: TROPONIN I 0.234 ng/mL (0.00-0.056)
[2017-10-19] MEDS: LEVOTHYROXINE SODIUM 50 MCG TABLET PO SCH (07:30)
[2017-10-19] MEDS: BLOOD SUGAR DIAGNOSTIC 1 EACH STRIP VI SCH ×4 (07:30→21:07)
[2017-10-19 08:00] VITALS: BP 147/72
[2017-10-19] MEDS: BOOST GLUCOSE CONTROL VANILLA 237 ML BOX PO SCH ×2 (08:00→16:31)
[2017-10-19] MEDS: DOCUSATE SODIUM 100 MG CAPSULE PO SCH ×2 (09:00→16:32)
[2017-10-19] MEDS: ISOSORBIDE MONONITRATE (30MG) 30 MG TAB.SR.24H PO SCH (09:00)
[2017-10-19] MEDS: ASCORBIC ACID 500 MG TABLET PO SCH (09:00)
[2017-10-19] MEDS: CARVEDILOL 6.25 MG TABLET PO SCH ×2 (09:00→21:07)
[2017-10-19] MEDS: AGGRENOX(ASA/DIPYRIDAMOLE) 1 CAP CPMP.12HR PO SCH (09:00)
[2017-10-19] MEDS: FINASTERIDE (5 MG) 5 MG TABLET PO SCH (09:00)
[2017-10-19] MEDS: methylPREDNISolone SOD SUCC 125 MG/2ML VIAL IV SCH (09:00)
[2017-10-19] MEDS: DILTIAZEM HCL CD 120 MG PO SCH (09:00)
[2017-10-19] MEDS: CHOLECALCIFEROL 1,000 UNIT TABLET (VIT D3) PO SCH (09:00)
[2017-10-19 09:15] LABS: BAND % (MANUAL) 2 % (0.0-5.0); LYMPHOCYTES % (MANUAL) 1 % (16-48); MONOCYTES % (MANUAL) 2 % (0-11.0); NEUTROPHILS % (MANUAL) 95 (42-76)
[2017-10-19] MEDS: FUROSEMIDE 100 MG/10 ML VIAL IV SCH ×2 (11:57→15:03)
[2017-10-19] MEDS: INSULIN REGULAR, HUMAN 100 UNIT/ML 3 ML VIAL SQ PRN (12:03)
[2017-10-19] MEDS: POTASSIUM CHLORIDE 20 MEQ TAB.PRT.SR PO SCH ×3 (12:04→15:00)
[2017-10-19 16:00] VITALS: BP 111/51
[2017-10-19] MEDS: ATORVASTATIN 10 MG TABLET PO SCH (21:07)
[2017-10-19] MEDS: MIRTAZAPINE 15 MG TABLET PO SCH (21:07)
[2017-10-19] MEDS: TAMSULOSIN 0.4 MG CAP.SR.24H PO SCH (21:07)
[2017-10-19] MEDS: INSULIN DETEMIR 100 UNIT/ML CARTRIDGE SQ SCH (21:28)
[2017-10-19] MEDS: *INSULIN REGULAR(HUMULIN R)HUM 100 UNIT/ML VIAL SQ PRN (21:30)
[2017-10-20] MEDS: ALBUTEROL FS 2.5 MG/0.5 ML VIAL.NEB NEB SCH ×4 (00:43→19:11)
[2017-10-20 04:00] VITALS: BP 164/71
[2017-10-20] MEDS: CEFEPIME 1 GM in IV D5W 50 ML IV SCH ×2 (05:04→17:30)
[2017-10-20] MEDS: BLOOD SUGAR DIAGNOSTIC 1 EACH STRIP VI SCH ×4 (07:30→21:07)
[2017-10-20 08:00] VITALS: BP 139/73
[2017-10-20] MEDS: BOOST GLUCOSE CONTROL VANILLA 237 ML BOX PO SCH ×2 (08:00→17:00)
[2017-10-20 08:03] LABS: ALANINE AMINOTRANSFERASE 18 U/L (12-78); ALBUMIN 3.4 g/dL (3.4-5.0); ALKALINE PHOSPHATASE 48 U/L (46-116); ASPARTATE AMINOTRANSFERASE 15 U/L (15-37); B-TYPE NATRIURETIC PEPTIDE 6950 PG/ML (0-125); BILIRUBIN,TOTAL 0.7 mg/dL (0.2-1.0); CALCIUM, SERUM 9.6 mg/dL (8.5-10.1); CARBON DIOXIDE 38 mmol/L (21-32); CHLORIDE 102 mmol/L (98-107); GLUCOSE 272 mg/dL (74-106); MAGNESIUM 2.6 mg/dL (1.8-2.4); POTASSIUM 3.1 mmol/L (3.5-5.1); SODIUM SERUM 149 mmol/L (136-145); TOTAL PROTEIN, SERUM 7.2 g/dL (6.4-8.2); UREA NITROGEN, BLOOD 72 mg/dL (7-18)
[2017-10-20 08:26] LABS: EOSINOPHILS # (AUTO) 0.1 /CMM (0.0-0.7); EOSINOPHILS % (AUTO) 0.6 % (0.0-6.0); HEMATOCRIT 34 % (39-51); HEMOGLOBIN 10.1 g/dL (13.5-17.5); LYMPHOCYTES # (AUTO) 0.1 /CMM (0.8-4.8); MEAN CORPUSCULAR HEMOGLOBIN 23 PG (26.0-33.0); MEAN CORPUSCULAR HGB CONC 30 g/dl (31.0-36.0); MEAN CORPUSCULAR VOLUME 76 fL (80-96); MONOCYTES # (AUTO) 0.7 /CMM (0.1-1.30); NEUTROPHILS % (AUTO) 93.4 % (43.0-81.0); PLATELET COUNT (AUTO) 227 /CMM (150-450); RDW COEFFICIENT OF VARIATION 20.3 (11.5-15.0); RED BLOOD CELL COUNT(AUTO) 4.42 MIL/uL (4.5-6.0)
[2017-10-20] MEDS: DILTIAZEM HCL CD 120 MG PO SCH (09:39)
[2017-10-20] MEDS: ASCORBIC ACID 500 MG TABLET PO SCH (09:39)
[2017-10-20] MEDS: FINASTERIDE (5 MG) 5 MG TABLET PO SCH (09:39)
[2017-10-20] MEDS: ISOSORBIDE MONONITRATE (30MG) 30 MG TAB.SR.24H PO SCH (09:39)
[2017-10-20] MEDS: CHOLECALCIFEROL 1,000 UNIT TABLET (VIT D3) PO SCH (09:39)
[2017-10-20] MEDS: AGGRENOX(ASA/DIPYRIDAMOLE) 1 CAP CPMP.12HR PO SCH (09:40)
[2017-10-20] MEDS: CARVEDILOL 6.25 MG TABLET PO SCH ×2 (09:40→21:07)
[2017-10-20] MEDS: DOCUSATE SODIUM 100 MG CAPSULE PO SCH ×2 (09:40→17:00)
[2017-10-20] MEDS: LEVOTHYROXINE SODIUM 50 MCG TABLET PO SCH (09:41)
[2017-10-20 12:00] VITALS: BP 139/73
[2017-10-20] MEDS: POTASSIUM CHLORIDE 20 MEQ POWDER PACKET PO SCH ×3 (12:00→13:00)
[2017-10-20 14:00] VITALS: BP 139/73
[2017-10-20] MEDS: Z GUARD REMEDY 2 OZ OINT TP SCH (15:09)
[2017-10-20 16:00] VITALS: BP 139/73
[2017-10-20] MEDS: MEGESTROL ACETATE SUSP 400 MG/10 ML UDC PO SCH (17:00)
[2017-10-20 20:00] VITALS: BP 140/50
[2017-10-20] MEDS: ATORVASTATIN 10 MG TABLET PO SCH (21:06)
[2017-10-20] MEDS: MIRTAZAPINE 15 MG TABLET PO SCH (21:06)
[2017-10-20] MEDS: TAMSULOSIN 0.4 MG CAP.SR.24H PO SCH (21:06)
[2017-10-20] MEDS: *INSULIN REGULAR(HUMULIN R)HUM 100 UNIT/ML VIAL SQ PRN (21:16)
[2017-10-20] MEDS ORDERED: INSULIN DETEMIR 100 UNIT/ML CARTRIDGE SQ SCH (22:00)
[2017-10-21] MEDS: ALBUTEROL FS 2.5 MG/0.5 ML VIAL.NEB NEB SCH ×3 (01:53→13:35)
[2017-10-21 04:00] VITALS: BP 162/70
[2017-10-21] MEDS: CEFEPIME 1 GM in IV D5W 50 ML IV SCH (04:42)
[2017-10-21] MEDS: LEVOTHYROXINE SODIUM 50 MCG TABLET PO SCH (07:30)
[2017-10-21 08:00] VITALS: BP 159/52
[2017-10-21] MEDS: BOOST GLUCOSE CONTROL VANILLA 237 ML BOX PO SCH (08:00)
[2017-10-21] MEDS: DOCUSATE SODIUM 100 MG CAPSULE PO SCH (08:43)
[2017-10-21] MEDS: AGGRENOX(ASA/DIPYRIDAMOLE) 1 CAP CPMP.12HR PO SCH (08:43)
[2017-10-21] MEDS: ASCORBIC ACID 500 MG TABLET PO SCH (08:43)
[2017-10-21] MEDS: CHOLECALCIFEROL 1,000 UNIT TABLET (VIT D3) PO SCH (08:43)
[2017-10-21] MEDS: MEGESTROL ACETATE SUSP 400 MG/10 ML UDC PO SCH (08:43)
[2017-10-21] MEDS: Z GUARD REMEDY 2 OZ OINT TP SCH (08:44)
[2017-10-21] MEDS: BLOOD SUGAR DIAGNOSTIC 1 EACH STRIP VI SCH ×2 (08:48→11:19)
[2017-10-21 08:49] VITALS: BP 159/52
[2017-10-21] MEDS: CARVEDILOL 6.25 MG TABLET PO SCH (08:49)
[2017-10-21] MEDS: DILTIAZEM HCL CD 120 MG PO SCH (08:49)
[2017-10-21] MEDS: ISOSORBIDE MONONITRATE (30MG) 30 MG TAB.SR.24H PO SCH (08:49)
[2017-10-21] MEDS: FINASTERIDE (5 MG) 5 MG TABLET PO SCH (08:50)
== END 2017-10-21 14:21 | DRG 280 ==
LOC: ER 09:02 → TELE-TD 11:19 → TELE1 10-18 10:08 → MEDSG1 10-18 10:27
PROVIDERS: ADMIT Internal Medicine; ATTEND Internal Medicine
DX: I13.0 Hypertensive heart and chronic kidney disease with heart failure and stage 1 through stage 4 chronic kidney disease, or unspecified chronic kidney disease (principal); J18.9 Pneumonia, unspecified organism; I21.A1 Myocardial infarction type 2; J96.01 Acute respiratory failure with hypoxia; N17.9 Acute kidney failure, unspecified; I27.20 Pulmonary hypertension, unspecified; E11.22 Type 2 diabetes mellitus with diabetic chronic kidney disease; I48.91 Unspecified atrial fibrillation; E83.51 Hypocalcemia; I50.33 Acute on chronic diastolic (congestive) heart failure; J44.0 Chronic obstructive pulmonary disease with (acute) lower respiratory infection; J44.1 Chronic obstructive pulmonary disease with (acute) exacerbation; N39.0 Urinary tract infection, site not specified; D63.1 Anemia in chronic kidney disease; F01.50 Vascular dementia, unspecified severity, without behavioral disturbance, psychotic disturbance, mood disturbance, and anxiety; F03.90 Unspecified dementia, unspecified severity, without behavioral disturbance, psychotic disturbance, mood disturbance, and anxiety; Z95.1 Presence of aortocoronary bypass graft; Z91.19 Patient's noncompliance with other medical treatment and regimen; Z86.73 Personal history of transient ischemic attack (TIA), and cerebral infarction without residual deficits; K21.9 Gastro-esophageal reflux disease without esophagitis; I25.10 Atherosclerotic heart disease of native coronary artery without angina pectoris; E03.9 Hypothyroidism, unspecified; N40.0 Benign prostatic hyperplasia without lower urinary tract symptoms; N18.9 Chronic kidney disease, unspecified; Z79.4 Long term (current) use of insulin; Z79.82 Long term (current) use of aspirin; E87.6 Hypokalemia; E78.5 Hyperlipidemia, unspecified; F29 Unspecified psychosis not due to a substance or known physiological condition; F32.9 Major depressive disorder, single episode, unspecified; G40.909 Epilepsy, unspecified, not intractable, without status epilepticus; Z87.440 Personal history of urinary (tract) infections; Z79.899 Other long term (current) drug therapy; D50.9 Iron deficiency anemia, unspecified; Z79.01 Long term (current) use of anticoagulants
CPT/HCPCS: 36415; 36600; 71010-TC; 80048-TC; 80053-TC; 80061-TC; 80076-TC; 81000-TC; 82306; 82378; 82728-TC; 82803-TC; 82962-TC; 83540-TC; 83735-TC; 83880; 84100-TC; 84439-TC; 84443-TC; 84484-TC; 85025-TC; 85610-TC; 87081-TC; 87086-TC; 87400; 93307-TC; 94799-TC; A4606; J0692; J1120; J1630; J1815; J1940; J1956; J2543; J2930; J3475; J3480; J7050; J7060; Z7610

== ENCOUNTER 2017-12-06 18:53 | Inpatient (IN) | payer MEDICARE, MEDICAID ==
[~2017-12-06] VITALS: Ht 165.1 cm; Wt 68.5 kg
[~2017-12-06 18:53] MED LIST changes: -ALBU2.5V38 NEB; -AMIN30LI2 PO; +ASCO500T9 PO; +ATOR10TA PO; -CALC-883 PO; -CRAN3875 PO; -CRAN425C PO; +DILT120T2 PO; -DILT30TA2 PO; -FERR-58 PO; +HYDR12.5 PO; +INSU100I14 SQ; -INSU100V11 SQ; -IPRA0.2S9 IH; +IPRA3AMP IH; -LEVA0.6320 IH; +MELA3TAB PO; +MIRT15TA7 PO; -NIFE60TA2 PO; +ONDA4TAB5 PO; +POTA8TAB3 PO; -SIMV10TA2 PO; -WARF3TAB29 PO
[2017-12-06] MEDS ORDERED: IPRATROPIUM NEB FS 0.5 MG/2.5 ML AMPUL.NEB NEB ONE (19:30)
[2017-12-06] MEDS ORDERED: methylPREDNISolone SOD SUCC 125 MG/2ML VIAL IV ONE (19:30)
[2017-12-06] MEDS ORDERED: ALBUTEROL FS 2.5 MG/3 ML VIAL.NEB NEB ONE (19:30)
[2017-12-06] MEDS ORDERED: methylPREDNISolone SOD SUCC 125 MG/2ML VIAL ONE (19:34)
[2017-12-06 19:40] LABS: BASOPHILS # (AUTO) 0.2 /CMM (0.0-0.2); BASOPHILS % (AUTO) 2.4 % (0.0-2.0); EOSINOPHILS # (AUTO) 0.1 /CMM (0.0-0.7); EOSINOPHILS % (AUTO) 1.1 % (0.0-6.0); HEMATOCRIT 24 % (39-51); HEMOGLOBIN 7.5 g/dL (13.5-17.5); LYMPHOCYTES # (AUTO) 0.6 /CMM (0.8-4.8); LYMPHOCYTES % (AUTO) 6.8 % (20.0-44.0); MEAN CORPUSCULAR HEMOGLOBIN 22 PG (26.0-33.0); MEAN CORPUSCULAR HGB CONC 31 g/dl (31.0-36.0); MEAN CORPUSCULAR VOLUME 71 fL (80-96); MONOCYTES # (AUTO) 0.6 /CMM (0.1-1.30); MONOCYTES % (AUTO) 7.1 % (2.0-12.0); NEUTROPHILS # (AUTO) 7.5 /CMM (1.8-8.9); NEUTROPHILS % (AUTO) 82.6 % (43.0-81.0); PLATELET COUNT (AUTO) 191 /CMM (150-450); RDW COEFFICIENT OF VARIATION 19.7 (11.5-15.0)
[2017-12-06] MEDS ORDERED: ALBUTEROL FS 2.5 MG/3 ML VIAL.NEB ONE (19:40)
[2017-12-06] MEDS ORDERED: IPRATROPIUM NEB FS 0.5 MG/2.5 ML AMPUL.NEB ONE ×2 (19:40→23:27)
[2017-12-06 19:44] LABS: CALCIUM, SERUM 8.7 mg/dL (8.5-10.1); CARBON DIOXIDE 29 mmol/L (21-32); CHLORIDE 108 mmol/L (98-107); CREATININE 1.2 mg/dL (0.6-1.3); GLUCOSE 139 mg/dL (74-106); POTASSIUM 3.8 mmol/L (3.5-5.1); SODIUM SERUM 143 mmol/L (136-145); UREA NITROGEN, BLOOD 30 mg/dL (7-18)
[2017-12-06 19:48] LABS: INR 1.08 (0.87-1.13); PROTHROMBIN TIME 11.2 SECS (9.5-12.7)
[2017-12-06 19:52] LABS: TROPONIN I 0.039 ng/mL (0.00-0.056)
[2017-12-06 19:57] LABS: ALANINE AMINOTRANSFERASE 19 U/L (12-78); ALBUMIN 2.9 g/dL (3.4-5.0); ALKALINE PHOSPHATASE 56 U/L (46-116); ASPARTATE AMINOTRANSFERASE 14 U/L (15-37); B-TYPE NATRIURETIC PEPTIDE 5062 PG/ML (0-125); BILIRUBIN,DIRECT 0.1 mg/dL (0.0-0.2); BILIRUBIN,TOTAL 0.4 mg/dL (0.2-1.0); TOTAL PROTEIN, SERUM 6.2 g/dL (6.4-8.2)
[2017-12-06 20:37] LABS: BAND % (MANUAL) 10 % (0.0-5.0); BASOPHILS % (MANUAL) 3 % (0.0-2.0); EOSINOPHILS % (MANUAL) 1 % (0-4); LYMPHOCYTES % (MANUAL) 8 % (16-48); MONOCYTES % (MANUAL) 10 % (0-11.0); NEUTROPHILS % (MANUAL) 68 (42-76)
[2017-12-06] MEDS ORDERED: LEVOFLOXACIN 750 MG /D5W 150ML 150 ML IV ONE ×2 (21:00→21:41)
[2017-12-06] MEDS ORDERED: FUROSEMIDE 40 MG/4 ML VIAL IV ONE (21:30)
[2017-12-06] MEDS ORDERED: FUROSEMIDE 40 MG/4 ML VIAL ONE (21:41)
[2017-12-06] MEDS ORDERED: IPRATROPIUM NEB FS 0.5 MG/2.5 ML AMPUL.NEB NEB SCH (23:00)
[2017-12-06] MEDS ORDERED: MAGNESIUM HYDROXIDE 30 ML UDC PO PRN (23:00)
[2017-12-06] MEDS ORDERED: ACETAMINOPHEN 325 MG TABLET PO PRN (23:00)
[2017-12-06] MEDS ORDERED: ALBUTEROL FS 2.5 MG/0.5 ML VIAL.NEB NEB SCH (23:00)
[2017-12-06 23:24] VITALS: BP 146/68
[2017-12-06] MEDS ORDERED: ALBUTEROL FS 2.5 MG/0.5 ML VIAL.NEB ONE (23:27)
[2017-12-06] MEDS: IPRATROPIUM NEB FS 0.5 MG/2.5 ML AMPUL.NEB NEB SCH (23:34)
[2017-12-06] MEDS: ALBUTEROL FS 2.5 MG/0.5 ML VIAL.NEB NEB SCH (23:34)
[2017-12-07] VITALS (7 sets, daily range): BP systolic 118–164; BP diastolic 48–79
[2017-12-07] MEDS ORDERED: CEFEPIME 1 GM VIAL ONE (00:06)
[2017-12-07] MEDS ORDERED: FUROSEMIDE 20 MG/2 ML VIAL ONE (00:14)
[2017-12-07] MEDS: FUROSEMIDE 20 MG/2 ML VIAL IV SCH ×3 (00:16→21:26)
[2017-12-07] MEDS: CEFEPIME 1 GM in IV D5W 50 ML IV SCH ×3 (00:17→21:26)
[2017-12-07] MEDS ORDERED: IPRATROPIUM NEB FS 0.5 MG/2.5 ML AMPUL.NEB ONE (02:36)
[2017-12-07] MEDS ORDERED: ALBUTEROL FS 2.5 MG/0.5 ML VIAL.NEB ONE (02:36)
[2017-12-07] MEDS: IPRATROPIUM NEB FS 0.5 MG/2.5 ML AMPUL.NEB NEB SCH ×6 (02:38→22:38)
[2017-12-07] MEDS: ALBUTEROL FS 2.5 MG/0.5 ML VIAL.NEB NEB SCH ×6 (02:38→22:38)
[2017-12-07 05:44] LABS: ABG BASE EXCESS 5.8 mmol/L; ABG OXYGEN SATURATION 93.3 % (92.0-98.5); ABG PCO2 49.6 mmHg (35.0-45.0); ABG PH 7.414 (7.350-7.450); ABG PO2 69.8 mmHg (75.0-100.0); AaDO2 71.3 mmHg; COHb 0.6 % (0.5-1.5); MetHb 0.7 % (0.0-1.5); O2Hb 92.1 % (94.0-97.0); SITE, ABG Left Radial; VENT MODE, BG Nasal Cannula
[2017-12-07] MEDS: DOCUSATE SODIUM 100 MG CAPSULE PO SCH ×2 (09:00→17:59)
[2017-12-07] MEDS: ISOSORBIDE MONONITRATE (30MG) 30 MG TAB.SR.24H PO SCH (09:00)
[2017-12-07] MEDS: AGGRENOX(ASA/DIPYRIDAMOLE) 1 CAP CPMP.12HR PO SCH (09:00)
[2017-12-07] MEDS: CHOLECALCIFEROL 1,000 UNIT TABLET (VIT D3) PO SCH (09:00)
[2017-12-07] MEDS: FINASTERIDE (5 MG) 5 MG TABLET PO SCH (09:00)
[2017-12-07] MEDS: ASCORBIC ACID 500 MG TABLET PO SCH (09:00)
[2017-12-07] MEDS: CARVEDILOL 6.25 MG TABLET PO SCH ×2 (09:00→18:04)
[2017-12-07] MEDS: BLOOD SUGAR DIAGNOSTIC 1 EACH STRIP IN SCH ×4 (09:46→21:31)
[2017-12-07] MEDS: LEVOTHYROXINE SODIUM 50 MCG TABLET PO SCH (09:47)
[2017-12-07 11:27] LABS: ALANINE AMINOTRANSFERASE 21 U/L (12-78); ALBUMIN 3.1 g/dL (3.4-5.0); ALKALINE PHOSPHATASE 50 U/L (46-116); ASPARTATE AMINOTRANSFERASE 10 U/L (15-37); BILIRUBIN,TOTAL 0.5 mg/dL (0.2-1.0); CALCIUM, SERUM 8.7 mg/dL (8.5-10.1); CARBON DIOXIDE 31 mmol/L (21-32); CHLORIDE 106 mmol/L (98-107); CREATININE 1.5 mg/dL (0.6-1.3); GLUCOSE 259 mg/dL (74-106); POTASSIUM 3.8 mmol/L (3.5-5.1); SODIUM SERUM 146 mmol/L (136-145); TOTAL PROTEIN, SERUM 6.7 g/dL (6.4-8.2); UREA NITROGEN, BLOOD 29 mg/dL (7-18)
[2017-12-07 12:27] LABS: HEMATOCRIT 24 % (39-51); HEMOGLOBIN 7.4 g/dL (13.5-17.5); LYMPHOCYTES # (AUTO) 0.2 /CMM (0.8-4.8); LYMPHOCYTES % (AUTO) 4.6 % (20.0-44.0); MEAN CORPUSCULAR HEMOGLOBIN 22 PG (26.0-33.0); MEAN CORPUSCULAR HGB CONC 31 g/dl (31.0-36.0); MEAN CORPUSCULAR VOLUME 72 fL (80-96); MONOCYTES # (AUTO) 0.1 /CMM (0.1-1.30); MONOCYTES % (AUTO) 1.4 % (2.0-12.0); NEUTROPHILS # (AUTO) 4.3 /CMM (1.8-8.9); PLATELET COUNT (AUTO) 201 /CMM (150-450); RDW COEFFICIENT OF VARIATION 21.6 (11.5-15.0); RED BLOOD CELL COUNT(AUTO) 3.32 MIL/uL (4.5-6.0); WHITE BLOOD COUNT (AUTO) 4.6 K/uL (4.3-11.0)
[2017-12-07] MEDS: TAMSULOSIN 0.4 MG CAP.SR.24H PO SCH (21:29)
[2017-12-07] MEDS: MIRTAZAPINE 15 MG TABLET PO SCH (21:29)
[2017-12-07] MEDS: ATORVASTATIN 10 MG TABLET PO SCH (21:29)
[2017-12-08] VITALS (7 sets, daily range): BP systolic 128–184; BP diastolic 55–98
[2017-12-08] MEDS: IPRATROPIUM NEB FS 0.5 MG/2.5 ML AMPUL.NEB NEB SCH ×6 (03:09→23:07)
[2017-12-08] MEDS: ALBUTEROL FS 2.5 MG/0.5 ML VIAL.NEB NEB SCH ×6 (03:09→23:07)
[2017-12-08] MEDS: ASCORBIC ACID 500 MG TABLET PO SCH (08:17)
[2017-12-08] MEDS: DOCUSATE SODIUM 100 MG CAPSULE PO SCH ×2 (08:17→18:34)
[2017-12-08] MEDS: CHOLECALCIFEROL 1,000 UNIT TABLET (VIT D3) PO SCH (08:17)
[2017-12-08] MEDS: LEVOTHYROXINE SODIUM 50 MCG TABLET PO SCH (08:17)
[2017-12-08] MEDS: BLOOD SUGAR DIAGNOSTIC 1 EACH STRIP IN SCH ×4 (08:17→21:32)
[2017-12-08] MEDS: CEFEPIME 1 GM in IV D5W 50 ML IV SCH ×2 (08:18→21:15)
[2017-12-08] MEDS: FINASTERIDE (5 MG) 5 MG TABLET PO SCH (08:18)
[2017-12-08] MEDS: AGGRENOX(ASA/DIPYRIDAMOLE) 1 CAP CPMP.12HR PO SCH (08:18)
[2017-12-08] MEDS: FUROSEMIDE 20 MG/2 ML VIAL IV SCH (08:18)
[2017-12-08] MEDS: ISOSORBIDE MONONITRATE (30MG) 30 MG TAB.SR.24H PO SCH (08:20)
[2017-12-08] MEDS: CARVEDILOL 6.25 MG TABLET PO SCH ×2 (08:20→18:34)
[2017-12-08 08:31] LABS: CALCIUM, SERUM 8.7 mg/dL (8.5-10.1); CARBON DIOXIDE 35 mmol/L (21-32); CHLORIDE 107 mmol/L (98-107); CREATININE 1.5 mg/dL (0.6-1.3); GLUCOSE 196 mg/dL (74-106); POTASSIUM 3.8 mmol/L (3.5-5.1); SODIUM SERUM 147 mmol/L (136-145); UREA NITROGEN, BLOOD 39 mg/dL (7-18)
[2017-12-08 12:12] LABS: EOSINOPHILS % (AUTO) 0.1 % (0.0-6.0); HEMATOCRIT 28 % (39-51); HEMOGLOBIN 8.8 g/dL (13.5-17.5); LYMPHOCYTES # (AUTO) 0.7 /CMM (0.8-4.8); LYMPHOCYTES % (AUTO) 7.4 % (20.0-44.0); MEAN CORPUSCULAR HEMOGLOBIN 23 PG (26.0-33.0); MEAN CORPUSCULAR HGB CONC 32 g/dl (31.0-36.0); MEAN CORPUSCULAR VOLUME 74 fL (80-96); MONOCYTES # (AUTO) 0.8 /CMM (0.1-1.30); MONOCYTES % (AUTO) 9.1 % (2.0-12.0); NEUTROPHILS # (AUTO) 7.7 /CMM (1.8-8.9); NEUTROPHILS % (AUTO) 83.4 % (43.0-81.0); PLATELET COUNT (AUTO) 204 /CMM (150-450); RDW COEFFICIENT OF VARIATION 22.1 (11.5-15.0); WHITE BLOOD COUNT (AUTO) 9.3 K/uL (4.3-11.0)
[2017-12-08] MEDS: TAMSULOSIN 0.4 MG CAP.SR.24H PO SCH (21:15)
[2017-12-08] MEDS: MIRTAZAPINE 15 MG TABLET PO SCH (21:15)
[2017-12-08] MEDS: ATORVASTATIN 10 MG TABLET PO SCH (21:15)
[2017-12-08] MEDS ORDERED: INSULIN DETEMIR 100 UNIT/ML CARTRIDGE SQ ONE (22:09)
[2017-12-08] MEDS: INSULIN DETEMIR 100 UNIT/ML CARTRIDGE SQ SCH (22:27)
[2017-12-09] VITALS: BP 141/60
[2017-12-09] MEDS: IPRATROPIUM NEB FS 0.5 MG/2.5 ML AMPUL.NEB NEB SCH ×6 (03:49→23:08)
[2017-12-09] MEDS: ALBUTEROL FS 2.5 MG/0.5 ML VIAL.NEB NEB SCH ×6 (03:49→23:08)
[2017-12-09 04:00] VITALS: BP 145/65
[2017-12-09] MEDS: BLOOD SUGAR DIAGNOSTIC 1 EACH STRIP IN SCH ×4 (07:30→21:41)
[2017-12-09 07:56] LABS: BASOPHILS % (AUTO) 0.1 % (0.0-2.0); CALCIUM, SERUM 8.7 mg/dL (8.5-10.1); CARBON DIOXIDE 35 mmol/L (21-32); CHLORIDE 104 mmol/L (98-107); CREATININE 1.2 mg/dL (0.6-1.3); EOSINOPHILS # (AUTO) 0.3 /CMM (0.0-0.7); EOSINOPHILS % (AUTO) 2.8 % (0.0-6.0); GLUCOSE 155 mg/dL (74-106); HEMATOCRIT 28 % (39-51); HEMOGLOBIN 8.8 g/dL (13.5-17.5); LYMPHOCYTES # (AUTO) 0.9 /CMM (0.8-4.8); LYMPHOCYTES % (AUTO) 10.2 % (20.0-44.0); MEAN CORPUSCULAR HEMOGLOBIN 23 PG (26.0-33.0); MEAN CORPUSCULAR HGB CONC 32 g/dl (31.0-36.0); MEAN CORPUSCULAR VOLUME 73 fL (80-96); MONOCYTES # (AUTO) 0.9 /CMM (0.1-1.30); MONOCYTES % (AUTO) 9.5 % (2.0-12.0); NEUTROPHILS # (AUTO) 7.1 /CMM (1.8-8.9); NEUTROPHILS % (AUTO) 77.4 % (43.0-81.0); PLATELET COUNT (AUTO) 189 /CMM (150-450); POTASSIUM 3.1 mmol/L (3.5-5.1); RED BLOOD CELL COUNT(AUTO) 3.79 MIL/uL (4.5-6.0); SODIUM SERUM 144 mmol/L (136-145); UREA NITROGEN, BLOOD 32 mg/dL (7-18); WHITE BLOOD COUNT (AUTO) 9.1 K/uL (4.3-11.0)
[2017-12-09 08:00] VITALS: BP 127/70
[2017-12-09] MEDS: FINASTERIDE (5 MG) 5 MG TABLET PO SCH (08:30)
[2017-12-09] MEDS: CHOLECALCIFEROL 1,000 UNIT TABLET (VIT D3) PO SCH (08:31)
[2017-12-09] MEDS: DOCUSATE SODIUM 100 MG CAPSULE PO SCH ×2 (08:31→17:50)
[2017-12-09] MEDS: ASCORBIC ACID 500 MG TABLET PO SCH (08:31)
[2017-12-09] MEDS: ISOSORBIDE MONONITRATE (30MG) 30 MG TAB.SR.24H PO SCH (08:31)
[2017-12-09] MEDS: CEFEPIME 1 GM in IV D5W 50 ML IV SCH ×2 (08:32→21:40)
[2017-12-09] MEDS: CARVEDILOL 6.25 MG TABLET PO SCH ×2 (08:32→17:50)
[2017-12-09] MEDS: AGGRENOX(ASA/DIPYRIDAMOLE) 1 CAP CPMP.12HR PO SCH (08:32)
[2017-12-09] MEDS: LEVOTHYROXINE SODIUM 50 MCG TABLET PO SCH (08:32)
[2017-12-09] MEDS ORDERED: POTASSIUM CHLORIDE 20 MEQ TAB.PRT.SR PO ONE (09:30)
[2017-12-09 12:00] VITALS: BP 145/73
[2017-12-09 16:00] VITALS: BP 134/59
[2017-12-09] MEDS ORDERED: LORAZEPAM INJ 2 MG/ML VIAL IV PRN (19:00)
[2017-12-09 20:00] VITALS: BP 130/55
[2017-12-09] MEDS: INSULIN DETEMIR 100 UNIT/ML CARTRIDGE SQ SCH (21:37)
[2017-12-09] MEDS: MIRTAZAPINE 15 MG TABLET PO SCH (21:40)
[2017-12-09] MEDS: TAMSULOSIN 0.4 MG CAP.SR.24H PO SCH (21:40)
[2017-12-09] MEDS: ATORVASTATIN 10 MG TABLET PO SCH (21:40)
[2017-12-10] VITALS: BP 148/70
[2017-12-10] MEDS: ALBUTEROL FS 2.5 MG/0.5 ML VIAL.NEB NEB SCH ×4 (03:30→14:46)
[2017-12-10] MEDS: IPRATROPIUM NEB FS 0.5 MG/2.5 ML AMPUL.NEB NEB SCH ×4 (03:30→14:46)
[2017-12-10 04:00] VITALS: BP 133/56
[2017-12-10 06:56] LABS: BASOPHILS % (AUTO) 0.7 % (0.0-2.0); EOSINOPHILS # (AUTO) 0.2 /CMM (0.0-0.7); EOSINOPHILS % (AUTO) 3.8 % (0.0-6.0); HEMATOCRIT 26 % (39-51); HEMOGLOBIN 8.3 g/dL (13.5-17.5); LYMPHOCYTES # (AUTO) 0.9 /CMM (0.8-4.8); LYMPHOCYTES % (AUTO) 13.8 % (20.0-44.0); MEAN CORPUSCULAR HEMOGLOBIN 23 PG (26.0-33.0); MEAN CORPUSCULAR HGB CONC 32 g/dl (31.0-36.0); MEAN CORPUSCULAR VOLUME 73 fL (80-96); MONOCYTES # (AUTO) 0.6 /CMM (0.1-1.30); MONOCYTES % (AUTO) 9.3 % (2.0-12.0); NEUTROPHILS # (AUTO) 4.7 /CMM (1.8-8.9); NEUTROPHILS % (AUTO) 72.4 % (43.0-81.0); PLATELET COUNT (AUTO) 183 /CMM (150-450); RDW COEFFICIENT OF VARIATION 22.1 (11.5-15.0); RED BLOOD CELL COUNT(AUTO) 3.59 MIL/uL (4.5-6.0); WHITE BLOOD COUNT (AUTO) 6.5 K/uL (4.3-11.0)
[2017-12-10 07:15] LABS: CALCIUM, SERUM 8.9 mg/dL (8.5-10.1); CARBON DIOXIDE 34 mmol/L (21-32); CHLORIDE 105 mmol/L (98-107); CREATININE 0.9 mg/dL (0.6-1.3); GLUCOSE 132 mg/dL (74-106); MAGNESIUM 1.9 mg/dL (1.8-2.4); POTASSIUM 3.4 mmol/L (3.5-5.1); SODIUM SERUM 143 mmol/L (136-145); UREA NITROGEN, BLOOD 24 mg/dL (7-18)
[2017-12-10] MEDS: BLOOD SUGAR DIAGNOSTIC 1 EACH STRIP IN SCH ×3 (07:30→18:00)
[2017-12-10] MEDS: LEVOTHYROXINE SODIUM 50 MCG TABLET PO SCH (07:30)
[2017-12-10 08:00] VITALS: BP 152/79
[2017-12-10] MEDS: DOCUSATE SODIUM 100 MG CAPSULE PO SCH ×2 (09:00→17:00)
[2017-12-10] MEDS: CARVEDILOL 6.25 MG TABLET PO SCH ×2 (09:00→17:00)
[2017-12-10] MEDS: ASCORBIC ACID 500 MG TABLET PO SCH (09:00)
[2017-12-10] MEDS: CHOLECALCIFEROL 1,000 UNIT TABLET (VIT D3) PO SCH (09:00)
[2017-12-10] MEDS: AGGRENOX(ASA/DIPYRIDAMOLE) 1 CAP CPMP.12HR PO SCH (09:00)
[2017-12-10] MEDS: FINASTERIDE (5 MG) 5 MG TABLET PO SCH (09:00)
[2017-12-10] MEDS: ISOSORBIDE MONONITRATE (30MG) 30 MG TAB.SR.24H PO SCH (09:00)
[2017-12-10] MEDS ORDERED: POTASSIUM CHLORIDE 20 MEQ TAB.PRT.SR PO ONE (10:45)
[2017-12-10] MEDS: CEFEPIME 1 GM in IV D5W 50 ML IV SCH (12:57)
[2017-12-10 16:00] VITALS: BP 150/58
[2017-12-10] MEDS ORDERED: POTASSIUM CHLORIDE 20 MEQ POWDER PACKET PO ONE (18:00)
== END 2017-12-10 19:31 | DRG 291 ==
LOC: ER 18:53 → TELE-TD 23:00 → TELE1 12-07 11:35 → MEDSG1 12-10 14:48
PROVIDERS: ADMIT Internal Medicine; ATTEND Internal Medicine
PROC: 30233N1 Transfusion of Nonautologous Red Blood Cells into Peripheral Vein, Percutaneous Approach (ICD-10-PCS; principal; 2017-12-07)
DX: I13.0 Hypertensive heart and chronic kidney disease with heart failure and stage 1 through stage 4 chronic kidney disease, or unspecified chronic kidney disease (principal); J18.9 Pneumonia, unspecified organism; J96.21 Acute and chronic respiratory failure with hypoxia; J90 Pleural effusion, not elsewhere classified; R78.81 Bacteremia; I48.91 Unspecified atrial fibrillation; F01.50 Vascular dementia, unspecified severity, without behavioral disturbance, psychotic disturbance, mood disturbance, and anxiety; E11.22 Type 2 diabetes mellitus with diabetic chronic kidney disease; D63.1 Anemia in chronic kidney disease; J96.22 Acute and chronic respiratory failure with hypercapnia; J98.11 Atelectasis; G40.909 Epilepsy, unspecified, not intractable, without status epilepticus; J44.9 Chronic obstructive pulmonary disease, unspecified; Z79.01 Long term (current) use of anticoagulants; Z95.1 Presence of aortocoronary bypass graft; I50.9 Heart failure, unspecified; Z66 Do not resuscitate; Z86.73 Personal history of transient ischemic attack (TIA), and cerebral infarction without residual deficits; Z91.19 Patient's noncompliance with other medical treatment and regimen; Z87.891 Personal history of nicotine dependence; Z79.899 Other long term (current) drug therapy; Z79.4 Long term (current) use of insulin; I25.10 Atherosclerotic heart disease of native coronary artery without angina pectoris; K21.9 Gastro-esophageal reflux disease without esophagitis; E03.9 Hypothyroidism, unspecified; F32.9 Major depressive disorder, single episode, unspecified; B95.5 Unspecified streptococcus as the cause of diseases classified elsewhere; M19.90 Unspecified osteoarthritis, unspecified site; E78.5 Hyperlipidemia, unspecified; E87.6 Hypokalemia; I70.0 Atherosclerosis of aorta; N18.9 Chronic kidney disease, unspecified; N40.0 Benign prostatic hyperplasia without lower urinary tract symptoms; K59.00 Constipation, unspecified
CPT/HCPCS: 36415; 36600; 71045-TC; 80048-TC; 80053-TC; 80076-TC; 82962-TC; 83735-TC; 83880; 84484-TC; 85025-TC; 85730-TC; 86850-TC; 86921-TC; 87040-TC; 87081-TC; 87186-TC; 94799-TC; J0692; J1815; J1940; J1956; J2060; J2930; J7050; J7060; P9016-BL